=== PATIENT | female | born 2000 | race African-American/Black ===

== ENCOUNTER 2018-01-11 10:15 | Emergency (ER) | payer MEDICAID, SELFPAY ==
[2018-01-11 10:15] VITALS: BP 161/100; PULSE 108; RESP 20; TEMP 36.2; O2SAT 97; BMI 56.6
--- NOTE | 2018-01-11 10:38 | RAD_ITS ---
STUDY: X-RAY - RIGHT FOOT CLINICAL: Female, 17 years old. Midfoot pain following injury. TECHNIQUE: 3 view(s) of the foot. COMPARISON: None. FINDINGS: Findings suggestive of a nondisplaced fracture along the superior posterior aspect of the first cuneiform. Normal visualized subtalar, talonavicular, calcaneocuboid, tarsal and tarsometatarsal articulations. Normal metatarsi. Normal metatarsophalangeal joint of the great toe. Normal tibial and fibular sesamoid bones. Normal interphalangeal joint of the great toe. Normal phalanges of the great toe. Normal second through fifth metatarsophalangeal joints. Normal interphalangeal joints and phalanges of the lesser toes. Soft tissue swelling. RAD/Foot min 3 Views IMPRESSION: Soft tissue swelling. Questionable fracture along the superior posterior aspect of the first cuneiform. Electronically Signed: Gopal Roque MD at 10:54 EDT Tel [phone], Service support ,
--- NOTE | 2018-01-11 11:12 | ED.DCSUM_ITS ---
- ER Visit Summary Date of Service: 01/11/18 Chief Complaint: [Injury right foot] History of Present Illness: The patient is a 17 F [presents the emergency department complaint of pain in her right foot since yesterday morning. Patient states that she was upset and kicked the wall. Patient having pain with ambulation.] Physical Examination: [Right foot-patient has diffuse tenderness over the dorsal midfoot. There is mild soft tissue swelling. No obvious deformity. No significant ecchymosis or bruising noted. She is neurovascular intact distally. She has no pain about the ankle.] Test Results: [X-rays of the right foot obtained were read by radiologist soft tissue swelling and possible fracture of the first cuneiform along the superior posterior aspect.] Emergency Department Course and Treatment: [Given that patient has tenderness along the area of possible fracture on x-ray patient will be placed in a postop shoe and given crutches. ] Treatment Plan: [Patient will be referred to podiatry and given a prescription for [place] for pain] Disposition: [Discharged home in stable condition] Impression: [Right foot fracture] This note was generated with [employer] dictation software. It may contain incorrect words, spelling, and punctuation that were not noted in review of the chart prior to signing ED Disposition - Plan for ED Patient: Chief Complaint: Lower Extremity Injury Referrals: Ramone Joseph MD [Primary Care Provider] -
--- NOTE | 2018-01-11 11:12 | ED.DEP ---
ED Disposition - Plan for ED Patient: Chief Complaint: Lower Extremity Injury Instructions: ED Fx Foot Prescriptions: Hydrocodone Bitart/Apap 5-325 [[place] 5MG-325MG] 1 tab PO Q4H PRN PRN 2 Days #10 tab PRN Reason: Pain Referrals: Ramone Joseph MD [Primary Care Provider] - Ramone Fonseca DPM [STAFF PHYSICIAN] - 3-5 Days
[2018-01-11 11:27] VITALS: BP 148/77; PULSE 75; RESP 16; O2SAT 99
== END 2018-01-11 11:28 | disposition home or self-care (01) ==
LOC: ED 10:43
PROVIDERS: Emergency Provider Emergency Medicine; Family Provider Family Medicine; PCP Family Medicine
DX: S92.811A Other fracture of right foot, initial encounter for closed fracture (principal); W22.8XXA Striking against or struck by other objects, initial encounter; Y93.89 Activity, other specified; Y92.9 Unspecified place or not applicable
CPT/HCPCS: 73630; 99283

== ENCOUNTER 2018-11-02 18:46 | Emergency (ER) | payer MEDICAID, SELFPAY ==
[2018-11-02 18:47] VITALS: BP 153/101; PULSE 115; RESP 16; TEMP 35.9; O2SAT 99; BMI 58.4
--- NOTE | 2018-11-02 19:17 | RAD_ITS ---
STUDY: X-RAY - LEFT ANKLE REASON FOR EXAM: Female, 18 years old. Fall down stairs TECHNIQUE: 3 view(s) of the ankle. COMPARISON: None. FINDINGS: Normal visualized distal tibia and fibula. Normal medial and lateral malleoli. Normal tibiotalar articulation and ankle mortise. Normal visualized talus and calcaneus. The visualized subtalar, talonavicular, calcaneocuboid and tarsal articulations are normal. There is no demonstrated fracture. The soft tissue structures are unremarkable. RAD/Ankle min 3 Views IMPRESSION: Normal x-ray examination of the ankle. Electronically Signed: Naman Guo MD at 20:03 EDT , Service support ,
--- NOTE | 2018-11-02 19:17 | RAD_ITS ---
STUDY: X-RAY - THORACIC SPINE REASON FOR EXAM: Female, 18 years old. Fall down stairs TECHNIQUE: 3 view(s) of the thoracic spine were obtained. COMPARISON: None. FINDINGS: Normal kyphosis of the thoracic spine. There is no substantial scoliosis. Normal thoracic vertebrae and endplates. Normal disc space heights. The soft tissue structures are unremarkable. RAD/Thoracic Spine 2 Views IMPRESSION: Normal x-ray examination of the thoracic spine. Electronically Signed: Naman Guo MD at 20:04 EDT , Service support ,
--- NOTE | 2018-11-02 19:17 | RAD_ITS ---
STUDY: X-RAY - LUMBAR SPINE REASON FOR EXAM: Female, 18 years old. Fall down stairs TECHNIQUE: 3 view(s) of the lumbar spine were obtained. COMPARISON: None FINDINGS: Normal lumbar lordosis. There is no substantial scoliosis. There is a normal alignment of the vertebrae. Normal vertebral bodies and endplates. Normal disc space heights. There is no demonstrated fracture. The soft tissue structures are unremarkable. RAD/Lumbar Spine 2 or 3 Views IMPRESSION: Normal x-ray examination of the lumbar spine. Electronically Signed: Naman Guo MD at 20:04 EDT , Service support ,
--- NOTE | 2018-11-02 20:29 | ED.DCSUM_ITS ---
- ER Visit Summary Date of Service: 11/02/18 Chief Complaint: [Fall] History of Present Illness: The patient is a 18 F [presents to the emergency department after sustaining a fall earlier today while walking down her outdoor steps. Patient states she was carrying a box when she slipped on the wet steps and landed on her back. Patient struck her left ankle against a step also. She denies striking her head or loss of consciousness. She denies any neck pain. She denies chest pain. She denies shortness of breath. She denies abdominal pain. Patient has been ambulatory and drove herself to the ER.] Physical Examination: [HEENT-PERRLA, EOMI. Cranial nerves II through XII najma ssly intact. TMs clear. Mucous membranes moist. No adenopathy. No C-spine tenderness to palpation. Normal active range of motion is painless. Cardiovascular-regular rate and rhythm without murmur or ectopy Lungs-clear to auscultation, chest wall stable without crepitus or subcu emphysema Abdomen-normoactive bowel sounds, soft, nontender, no rebound or rigidity, no peritoneal signs. Back exam-patient has diffuse tenderness over the upper thoracic spine. Patient also with tenderness over the lower lumbar spine. Is no ecchymosis or bruising noted no bony step-offs. Negative straight leg raises. Deep tendon reflexes are plus 2 out of 4 bilaterally at the patella and Achilles. Patient has normal 5 extension bilaterally. Extremities-intact ?4, normal range of motion, normal pulses, atraumatic] Test Results: [X-rays of the left ankle as well as the thoracic and lumbar spine performed were normal.] Emergency Department Course and Treatment: [Patient received an Trey wrap her ankle. She refused crutches.] Treatment Plan: [Patient advised use ibuprofen for discomfort and follow-up with primary care physician in 5 to 7 days.] Disposition: [Discharged home in stable condition] Impression: [Mechanical fall Left ankle sprain/contusion Contusion back] This note was generated with [employer] dictation software. It may contain incorrect words, spelling, and punctuation that were not noted in review of the chart prior to signing ED Disposition - Plan for ED Patient: Referrals: Ramone Joseph MD [Primary Care Provider] -
--- NOTE | 2018-11-02 20:29 | ED.DEP ---
ED Disposition - Plan for ED Patient: Instructions: ED Mechanical Fall, ED Contusion Back, Treating Ankle Sprains Referrals: Ramone Joseph MD [Primary Care Provider] - 5-7 Days
[2018-11-02 20:30] VITALS: BP 146/92; PULSE 88; RESP 16; O2SAT 98
== END 2018-11-02 20:34 | disposition home or self-care (01) ==
LOC: ED 19:34
PROVIDERS: Emergency Provider Emergency Medicine; Family Provider Family Medicine; PCP Family Medicine
DX: S93.402A Sprain of unspecified ligament of left ankle, initial encounter (principal); S90.02XA Contusion of left ankle, initial encounter; W10.8XXA Fall (on) (from) other stairs and steps, initial encounter; Y93.89 Activity, other specified; Y92.008 Other place in unspecified non-institutional (private) residence as the place of occurrence of the external cause; M54.6 Pain in thoracic spine; M54.5 Low back pain
CPT/HCPCS: 72070; 72100; 73610; 99282

== ENCOUNTER 2018-12-12 17:23 | Emergency (ER) | payer BC, SELFPAY ==
[2018-12-12 17:24] VITALS: BP 155/88; PULSE 108; RESP 16; TEMP 36.6; O2SAT 98; BMI 58.1
--- NOTE | 2018-12-12 17:38 | ED.DCSUM_ITS ---
History of Present Illness Chief Complaint: Itching Detail of Chief Complaint: Hives Informant: Patient Onset: Days - 3 days ago Context: Sudden Onset Timing: Continuous Quality: Itchy rash Location: Generalized Current Severity: Mild Maximum Severity: Mild Worsened by: Patient believes sunscreen Relieved by: nothing Associated Symptoms: Swelling of eyelids and itching of eyelids Narrative: Vision is a 18-year-old who presents with rash that she believes her hives. She states she has itching. She believes this is secondary to sunscreen. She denies respiratory cardiac since. She denies orthostatic symptoms. She denies swelling of the lips, tongue or throat. She has no other complaints. Prior similar symptoms: No Recent Illness/Hospitalization: No - Past Medical History (1) No significant past medical history Status: Acute Past Medical History - Allergies and Home Meds Allergies/Adverse Reactions: Allergies amoxicillin [From Augmentin] Adverse Reaction (Verified 12/12/18 17:25) Nausea clavulanic acid [From Augmentin] Adverse Reaction (Verified 12/12/18 17:25) Nausea Primary Care Physician: Ramone Joseph MD [Primary Care Provider] - Prior records reviewed: Yes Surgical History: no surgical history Lives: Spouse/ Significant Other Smoking Status: Never smoker Alcohol: None Review of Systems General: Denies: Chills, Fever, Sweats, Weight loss ENT: Denies: Rhinorrhea, Sore throat Cardiovascular: Denies: Chest pain, Palpitations Respiratory: Denies: Dyspnea, Cough, Dyspnea on exertion Gastrointestinal: Denies: Nausea, Vomiting, Diarrhea Musculoskeletal: Denies: Myalgias, Arthralgias, Neck pain, Back pain, Swelling, Extremity Pain Skin: Reports: Rash. Denies: Wounds Neurological: Denies: Headache, Weakness, Parasthesia, Numbness Allergy: Reports: Uticaria. Denies: Swelling of the mouth, Swelling of the tongue Physical Exam Vital Signs/Narrative: Vital Signs Temp Pulse Resp BP Pulse Ox 12/12/18 17:24 98 F 108 H 16 155/88 H 98 Inital Vital Signs reviewed: Yes General: Well nourished, Well developed, Obese, No Acute Distress Head: Normocephalic, Atraumatic Eyes: Perrl, EOMI. Negative for: Pale conjunctiva - Dr. are not injected., Scleral icterus, - ENT: Moist mucous membranes, No rhinorrhea, TM's clear Neck: Supple, Nontender, No lymphadenopathy, No JVD, - Cardiovascular: Regular rate, Regular rhythm, No murmurs Respiratory: No distress, CTA bilaterally, Chest nontender Extremities: Nontender, No edema Skin: Normal color, Rash - Patient has a papular rash. Findings are consistent with folliculitis.. Negative for: No rash, Cyanosis, Diaphoresis, Jaundice Neurological: Alert, Oriented x3, Cranial nerves II-XII grossly intact, Normal Strength, Normal Sensation Psychological: Normal affect, Normal Mood Diagnostic/Tx/Re-eval - Medical Decision Making She presents with rash that she believes is a urticaria. Examination the rash reveals folliculitis. Of note she is not well-groomed. There is no evidence of hives. There is no cardiovascular instability. There is no respiratory instability. Since this is generalized will discharge with appropriate home- going instructions for folliculitis and placed on antibiotics. She states she has not had a menstrual cycle in 3 years. ED Disposition - Plan for ED Patient: Disposition: Home or Assisted Living Diagnosis: Acute folliculitis Instructions: ED Folliculitis Prescriptions: Doxycycline 100 mg PO BID #10 cap Referrals: Ramone Joseph MD [Primary Care Provider] - 1 Week if not improving Additional Instructions: Your prescription was electronically transmitted to designated pharmacy of choice.
[2018-12-12 17:43] VITALS: RESP 18
[2018-12-12] MEDS: Doxycycline 100 MG CAPSULE PO (17:52)
== END 2018-12-12 17:54 | disposition home or self-care (01) ==
PROVIDERS: Emergency Provider Emergency Medicine; Family Provider Family Medicine; PCP Family Medicine
DX: L73.9 Follicular disorder, unspecified (principal)
CPT/HCPCS: 99283

== ENCOUNTER 2018-12-30 04:25 | Emergency (ER) | payer BC, SELFPAY ==
[2018-12-30 04:27] VITALS: BP 139/78; PULSE 95; RESP 18; TEMP 36.9; O2SAT 99; BMI 60.0
--- NOTE | 2018-12-30 04:38 | ED.DEP ---
ED Disposition - Plan for ED Patient: Instructions: ED Otitis Media Acute Adult Prescriptions: Azithromycin [Zithromax Z-Toro] 250 mg PO UD #1 box Naproxen [Naprosyn] 500 mg PO BID PRN #20 tablet Referrals: Ramone Joseph MD [Primary Care Provider] -
--- NOTE | 2018-12-30 04:43 | ED.DCSUM_ITS ---
- ER Visit Summary Date of Service: 12/30/18 Chief Complaint: Right ear pain, sore throat History of Present Illness: The patient is a 18 F presenting with right ear pain, sore throat. She states earlier today she started having a sore throat. She had painful swallowing but no difficulty swallowing. She denies fever. She states she later woke up with pain in her right ear. She tried no medications at home. No recent swimming or trauma. Denies other complaints. Physical Examination: Vitals are stable. Patient is afebrile. Alert no acute distress. HEENT exam right TM erythema and bulging. Pharynx is normal. Uvula midline. Neck is supple. No meningismus Lungs are clear and equal bilaterally. Heart is regular rate and rhythm. Extremities are unremarkable. Skin is warm and dry. No rash Remainder of exam is unremarkable. Emergency Department Course and Treatment: Patient was given Motrin, Zithromax due to Augmentin allergy. She is advised to follow-up with her primary care physician. Advised return to ED for worsening complaints. Disposition: Discharge home Impression: Right otitis media This note was generated with [employer] dictation software. It may contain incorrect words, spelling, and punctuation that were not noted in review of the chart prior to signing ED Disposition - Plan for ED Patient: Instructions: ED Otitis Media Acute Adult Prescriptions: Azithromycin [Zithromax Z-Toro] 250 mg PO UD #1 box Naproxen [Naprosyn] 500 mg PO BID PRN #20 tablet Referrals: Ramone Joseph MD [Primary Care Provider] -
[2018-12-30] MEDS: Ibuprofen 600 MG Tablet PO (04:51)
[2018-12-30] MEDS: Azithromycin 250 MG Tablet 500 MG PO (04:52)
[2018-12-30 04:54] VITALS: RESP 18
== END 2018-12-30 04:54 | disposition home or self-care (01) ==
LOC: ED 04:50
PROVIDERS: Emergency Provider Emergency Medicine; Family Provider Family Medicine; PCP Family Medicine
DX: H66.91 Otitis media, unspecified, right ear (principal)
CPT/HCPCS: 99283

== ENCOUNTER 2019-02-12 22:04 | Emergency (ER) | payer BC, SELFPAY ==
[2019-02-12 22:05] VITALS: BP 145/81; PULSE 88; RESP 14; TEMP 36.6; O2SAT 96; BMI 58.8
[2019-02-12 23:07] LABS: Red Blood Cells-Urine 0 SEEN /hpf (0-5)
[2019-02-12 23:13] LABS: Internal QC Validated? YES +Cl - CLEAR BKGD; Pregnancy, Urine Negative Negative
[2019-02-12 23:14] LABS: Color, Urine Yellow (Yellow); Glucose, Dipstick Normal (Normal); Ketone-Dipstick 5 mg/dl (Negative); Leukocyte Esterase-Dipstick 25 /ul (Negative); Nitrite-Dipstick Negative (Negative); Occult Blood-Urine Negative /ul (Negative); Protein-Dipstick 15 mg/dl (Negative); Urine Bilirubin Dipstick Negative (Negative); Urine Clarity Cloudy (Clear); Urine Urobilinogen 4 mg/dl (Normal)
[2019-02-12 23:19] LABS: Mucous, Urine 3+ /hpf (<or=2+)
[2019-02-12 23:20] LABS: Hyaline Cast 0-5 SEEN /lpf (0-5)
[2019-02-12 23:22] LABS: Bacteria 2+ /hpf (None Seen); Squamous Epithelial Cells - UA 5-10 SEEN /hpf (5-10)
[2019-02-12 23:23] LABS: White Blood Cells 0-5 SEEN /hpf (0-5)
--- NOTE | 2019-02-12 23:28 | ED.DCSUM_ITS ---
- ER Visit Summary Date of Service: 02/12/19 Chief Complaint: Multiple complaints History of Present Illness: The patient is a 18 F who presents with multiple complaints. She complains of pain along both sides of her neck. This is worse with turning her head to the side or certain movements. It is also causing headache. She reports sweats but no fevers. She also complains of lower back pain again worse with movement or palpation which she describes as pressure- like. She also complains of lower abdominal/pelvic pain. No dysuria frequency urgency. Physical Examination: Afebrile vitals unremarkable Moist mucous membranes Neck supple, no nuchal rigidity, negative Kernig's and presents this Patient has paraspinal lumbar and cervical tenderness no midline tenderness Abdomen is soft nontender nondistended Heart regular rate and rhythm Lungs are clear Test Results: Urinalysis unremarkable. negative. Emergency Department Course and Treatment: Patient's back and neck pain appear to be musculoskeletal nature. She does have a BMI of 59. I have no concern for serious process such as meningitis. She was advised on supportive care. In regards to her pelvic pain urinalysis and are unremarkable. She was advised to follow-up as an outpatient. She was advised that if symptoms continue she may need further outpatient work-up such as pelvic ultrasound. She does understand return for new or worsening symptoms. All questions answered bedside and discussed with the mother as well. Patient discharged. Treatment Plan: [] Disposition: [] Impression: Neck pain Lower back pain Pelvic pain This note was generated with [employer] dictation software. It may contain incorrect words, spelling, and punctuation that were not noted in review of the chart prior to signing ED Disposition - Plan for ED Patient: Referrals: Ramone Joseph MD [Primary Care Provider] -
--- NOTE | 2019-02-12 23:30 | ED.DEP ---
ED Disposition - Plan for ED Patient: Instructions: Neck Sprain/Strain, Back Sprain/Strain, PELVIC PAIN, Unknown Cause Prescriptions: Naproxen [Naprosyn] 500 mg PO BID #20 tab Prescription Printed Referrals: Ramone Joseph MD [Primary Care Provider] -
== END 2019-02-12 23:39 | disposition home or self-care (01) ==
PROVIDERS: Emergency Provider Emergency Medicine; Family Provider Family Medicine; PCP Family Medicine
DX: M54.2 Cervicalgia (principal); M54.5 Low back pain; R10.2 Pelvic and perineal pain
CPT/HCPCS: 81001; 81025; 99282

== ENCOUNTER 2019-04-16 15:20 | Emergency (ER) | payer BC, SELFPAY ==
[2019-04-16 15:21] VITALS: BP 138/93; PULSE 98; RESP 16; TEMP 36.8; O2SAT 98; BMI 56.5
--- NOTE | 2019-04-16 15:41 | ED.VIS.GEN ---
History of Present Illness Chief Complaint: Abscess Detail of Chief Complaint: Pilonidal cyst Informant: Patient Onset: Days Current Severity: Mild Maximum Severity: Moderate Narrative: Patient presents with complaint of pilonidal cyst. She states she started noting pain there 3 days ago. She states her mom looked at the area this morning and it spontaneously started to drain. She is not sure if they got everything out. She has not had fever or chills. She has had one prior pilonidal cyst. Past Medical History - Allergies and Home Meds Allergies/Adverse Reactions: Allergies amoxicillin [From Augmentin] Adverse Reaction (Verified 04/16/19 15:23) Nausea clavulanic acid [From Augmentin] Adverse Reaction (Verified 04/16/19 15:23) Nausea Primary Care Physician: Ramone Joseph MD [Primary Care Provider] - Prior records reviewed: Yes Past Medical History: - - Reviewed Surgical History: no surgical history Smoking Status: Never smoker Review of Systems General: Denies: Chills, Fever Eyes: Denies: Visual changes - bilaterally ENT: Denies: Bilateral ear pain Cardiovascular: Denies: Chest pain Respiratory: Denies: Dyspnea, Cough Gastrointestinal: Reports: - - Pain along buttock crease. Denies: Abdominal pain, Nausea, Vomiting Genitourinary: Denies: Dysuria Skin: Reports: Wounds. Denies: Rash Neurological: Denies: Headache Endocrine: Denies: Polyuria, Polydipsia Allergy: Denies: Uticaria Physical Exam Vital Signs/Narrative: Vital Signs Temp Pulse Resp BP Pulse Ox 04/16/19 15:21 98.2 F 98 16 138/93 H 98 Inital Vital Signs reviewed: Yes General: Well nourished Head: Normocephalic ENT: Moist mucous membranes Cardiovascular: Regular rate, Regular rhythm Respiratory: No distress, CTA bilaterally Abdomen: Soft, Nontender Rectal: - - Patient has evidence of a small pilonidal cyst on the gluteal cleft draining serosanguineous fluid. I do not feel fluctuance. There is no cellulitis. Extremities: Nontender Skin: - - As above Neurological: Alert, Oriented x3 Psychological: Normal affect Diagnostic/Tx/Re-eval - Medical Decision Making Bedside ultrasound was performed and does not reveal a fluid collection. She will be treated with Bactrim and Keflex. She will be referred to Dr. Pemberton who she saw in the past. ED Disposition - Plan for ED Patient: Disposition: Home or Assisted Living Diagnosis: Pilonidal cyst Instructions: PILONIDAL CYST, Not Infected Prescriptions: Smz/Tmp Ds [Bactrim Ds] 1 tablet PO BID #14 tablet Cephalexin [Keflex] 500 mg PO Q6 #40 capsule Referrals: Ramone Joseph MD [Primary Care Provider] - Ashley Pemberton MD [STAFF PHYSICIAN] - 1-2 Weeks
== END 2019-04-16 16:02 | disposition home or self-care (01) ==
LOC: ED 15:48
PROVIDERS: Emergency Provider Emergency Medicine; Family Provider Family Medicine; PCP Family Medicine
DX: L05.91 Pilonidal cyst without abscess (principal)
CPT/HCPCS: 99282

== ENCOUNTER 2019-10-21 21:55 | Emergency (ER) | payer SELFPAY ==
[2019-10-21 21:56] VITALS: BP 139/92; PULSE 92; RESP 18; TEMP 37.2; O2SAT 98; BMI 49.7
--- NOTE | 2019-10-21 22:29 | ED.VIS.GI ---
History of Present Illness Chief Complaint: Abd Pain Narrative: Patient presenting for evaluation secondary to abdominal pain nausea and vomiting. Patient reports that just prior to arrival she had a sudden onset of crampy upper abdominal pain. She reports that initially it was rather severe and it was associated with around 3 episodes of nonbloody nonbilious emesis. Patient denies that she had any diarrhea associated with this. Patient states that since throwing up she has had improvement of her abdominal pain and it is now down to a 3 out of 10. Patient denies any sick contacts. She denies any fever or respiratory symptoms. She denies any recent travel. She denies any history of abdominal surgeries. Review of systems otherwise negative. Past Medical History - Allergies and Home Meds Allergies/Adverse Reactions: Allergies amoxicillin [From Augmentin] Adverse Reaction (Verified 10/21/19 22:02) Nausea clavulanic acid [From Augmentin] Adverse Reaction (Verified 10/21/19 22:02) Nausea Primary Care Physician: Ramone Joseph MD [Primary Care Provider] - Past Medical History: None Surgical History: no surgical history Smoking Status: Former smoker Review of Systems General: Denies: Chills, Fever, Sweats Eyes: Denies: Visual changes - bilaterally, Diplopia ENT: Denies: Rhinorrhea, Sore throat Cardiovascular: Denies: Chest pain, Palpitations Respiratory: Denies: Dyspnea, Cough, Dyspnea on exertion Gastrointestinal: Reports: Abdominal pain, Nausea, Vomiting Genitourinary: Denies: Dysuria, Hematuria, Frequency Musculoskeletal: Denies: Back pain, Extremity Pain Skin: Denies: Rash, Wounds Neurological: Denies: Headache, Weakness, Numbness Physical Exam Vital Signs/Narrative: Vital Signs Temp Pulse Resp BP Pulse Ox 10/21/19 21:56 98.9 F 92 18 139/92 H 98 Inital Vital Signs reviewed: Yes General: Well nourished, Well developed, No Acute Distress Head: Normocephalic, Atraumatic Eyes: Perrl, EOMI ENT: Moist mucous membranes, No rhinorrhea Neck: Supple, Nontender Cardiovascular: Regular rate, Regular rhythm, No murmurs Respiratory: No distress, CTA bilaterally, Chest nontender Abdomen: Soft, Nondistended, Normal bowel sounds, Tender - Very minimal epigastric tenderness with no guarding or rebound Back: Nontender, Normal Inspection Extremities: Nontender, No edema Skin: Normal color, No rash Neurological: Alert, Oriented x3, Cranial nerves II-XII grossly intact, Normal Strength, Normal Sensation Psychological: Normal affect, Normal Mood Diagnostic/Tx/Re-eval - Medical Decision Making Patient presented secondary to vomiting and epigastric pain. Abdominal exam is benign. I did consider the possibility of ulcer versus pancreatitis versus gallbladder disease, but the patient has a benign abdomen and stable vitals I do not feel that imaging or lab work are indicated. Patient likely has gastritis. Patient will be given a GI cocktail and Zofran. She will be discharged with a course of Zofran. ED Disposition - Plan for ED Patient: Disposition: Home or Assisted Living Diagnosis: Gastritis Instructions: ED Gastritis Prescriptions: Ondansetron [Zofran Odt] 4 mg PO Q8H PRN PRN #10 tab PRN Reason: Nausea Transmission Status: Pending to [facility]/pharmacy #[id number] Referrals: Ramone Joseph MD [Primary Care Provider] - As Needed
[2019-10-21] MEDS: Ondansetron ODT 4 MG Tablet PO (22:33)
[2019-10-21] MEDS: Mag Hydrox/Al Hydrox/Simeth 30 ML UDC PO (22:33)
[2019-10-21 22:34] VITALS: BP 143/71; PULSE 87; RESP 17; O2SAT 99
== END 2019-10-21 22:57 | disposition home or self-care (01) ==
PROVIDERS: Emergency Provider Emergency Medicine; PCP Family Medicine
DX: K29.70 Gastritis, unspecified, without bleeding (principal); Z87.891 Personal history of nicotine dependence
CPT/HCPCS: 99285

== ENCOUNTER 2019-12-22 13:59 | Emergency (ER) | payer BC, MEDICAID, SELFPAY ==
[2019-12-22 14:00] VITALS: BP 131/87; PULSE 83; RESP 16; TEMP 36; O2SAT 99; BMI 37.2
--- NOTE | 2019-12-22 14:09 | ED.VIS.GEN ---
History of Present Illness Chief Complaint: Rash Informant: Patient Onset: Yesterday Context: Gradual Onset Timing: Continuous Quality: burning pain Location: nose Current Severity: Moderate Maximum Severity: Moderate Worsened by: palpation Relieved by: nothing Associated Symptoms: denies Narrative: 19-year-old female who denies any significant past medical history presents to the emergency department with a painful rash on her nose that she noticed yesterday. No drainage. No rash anywhere else. No lesions inside of her nose. She denies history of similar. Denies known exposures. Denies any new soaps lotions medications or detergents. Denies constitutional symptoms. Prior similar symptoms: No Recent Illness/Hospitalization: No Past Medical History - Allergies and Home Meds Allergies/Adverse Reactions: Allergies amoxicillin [From Augmentin] Adverse Reaction (Verified 12/22/19 14:00) Nausea clavulanic acid [From Augmentin] Adverse Reaction (Verified 12/22/19 14:00) Nausea Primary Care Physician: Ramone Joseph MD [Primary Care Provider] - Prior records reviewed: Yes Past Medical History: None Surgical History: no surgical history Lives: With Family Smoking Status: Former smoker Alcohol: Occasional Drugs: None Review of Systems General: Denies: Chills, Fever, Malaise, Subjective, Sweats Eyes: Denies: Visual changes - bilaterally, Diplopia ENT: Denies: Rhinorrhea, Sore throat Cardiovascular: Denies: Chest pain, Palpitations Respiratory: Denies: Dyspnea, Cough, Dyspnea on exertion Gastrointestinal: Denies: Abdominal pain, Nausea, Vomiting, Diarrhea, Melena, Hematochezia Genitourinary: Denies: Dysuria, Hematuria, Frequency Musculoskeletal: Denies: Back pain, Extremity Pain Skin: Reports: Rash. Denies: Abscess, Abrasions, Wounds Neurological: Denies: Headache, Weakness, Numbness Physical Exam Vital Signs/Narrative: Vital Signs Temp Pulse Resp BP Pulse Ox 12/22/19 14:00 96.8 F L 83 16 131/87 H 99 Inital Vital Signs reviewed: Yes General: Well nourished, Well developed, Obese, No Acute Distress Head: Normocephalic, Atraumatic Eyes: Perrl, EOMI ENT: Moist mucous membranes, No rhinorrhea Neck: Supple, Nontender Cardiovascular: Regular rate, Regular rhythm, No murmurs Respiratory: No distress, CTA bilaterally, Chest nontender Abdomen: Soft, Nontender, Nondistended, Normal bowel sounds Back: Nontender, Normal Inspection Extremities: Nontender, No edema Skin: Normal color, No Trauma, Rash - Patient has what appear to be a crusting lesion on the bridge of her nose on the right side just above the nostril. small vesicle surrounding this. No abscess. No petechia no purpura or pustules. No other lesions noted on the face within the nose on the upper lip or within the mouth. Neurological: Alert, Oriented x3, Cranial nerves II-XII grossly intact, Normal Strength, Normal Sensation, Normal Gait Psychological: Normal affect, Normal Mood Diagnostic/Tx/Re-eval - Medical Decision Making A herpes culture was sent as well as a wound culture. Will treat with oral Keflex, Famvir and topical Bactroban and have her follow-up with her primary care physician ED Disposition - Plan for ED Patient: Disposition: Home or Assisted Living Diagnosis: Rash of face Instructions: ED Herpes Simplex Virus Type 2 Prescriptions: Mupirocin [Bactroban] 1 applic TOPICAL TID #1 tube Prescription Printed Famciclovir [Famvir] 250 mg PO TID #30 tab Prescription Printed Cephalexin [Keflex] 500 mg PO Q12 #14 cap Prescription Printed Referrals: Ramone Joseph MD [Primary Care Provider] -
--- NOTE | 2019-12-22 14:25 | ED.VISSUMM ---
- ER Visit Summary Date of Service: 12/22/19 Chief Complaint: [Rash] History of Present Illness: The patient is a 19 F [presents to the emergency department complaint of a rash to the right side of her nose that she noted about a week ago. Patient felt like maybe it was just some crusty discharge and pulled it off and since that time she has had a vesicular uncomfortable rash. She has no history of cold sores or herpes. She also started having a sore throat 2 days ago. She denies any fevers. Patient seen in conjunction with nurse practitioner Ulysses Loera.] Physical Examination: [HEENT-PERRLA, EOMI. Cranial nerves II through XII grossly intact. TMs clear. Mucous membranes moist. No adenopathy. Nose-just superior to the nasal opening on the right side there is a vesicular rash with central scab noted. No cellulitic changes noted. Pharynx-no lesions noted. No exudates. Uvula midline. No trismus. No significant erythema noted. Cardiovascular-regular rate and rhythm without murmur or ectopy Lungs-clear to auscultation, chest wall stable without crepitus or subcu emphysema Abdomen-normoactive bowel sounds, soft, nontender, no rebound or rigidity, no peritoneal signs. Extremities-intact ?4, normal range of motion, normal pulses, atraumatic] Test Results: [Herpes culture was sent. Also a wound culture sent.] Emergency Department Course and Treatment: [Patient will be treated with antiviral Famvir as well as mupirocin cream and Keflex.] Treatment Plan: [Patient treated with antiviral as well as Keflex and mupirocin cream. Patient will be referred to primary care physician for follow-up in 3 to 5 days.] Disposition: [Discharged home in stable condition] Impression: [Dermatitis Pharyngitis] This note was generated with tok tok tok dictation software. It may contain incorrect words, spelling, and punctuation that were not noted in review of the chart prior to signing ED Disposition - Plan for ED Patient: Referrals: Ramone Joseph MD [Primary Care Provider] -
[2019-12-22 15:00] VITALS: PULSE 86; RESP 17; O2SAT 98
== END 2019-12-22 15:02 | disposition home or self-care (01) ==
LOC: ED 14:51
PROVIDERS: Emergency Provider Physician Assistant Medical; PCP Family Medicine
DX: L30.9 Dermatitis, unspecified (principal); J02.9 Acute pharyngitis, unspecified; E66.9 Obesity, unspecified; Z87.891 Personal history of nicotine dependence
CPT/HCPCS: 87070; 87077; 87186; 87205; 87255; 99283

== ENCOUNTER → 2020-06-02 12:53 | Outpatient (CLI) | payer BC, MEDICAID, SELFPAY ==
[2020-06-02 13:44] LABS: hCG Titer Quant., Serum 35240 mIU/mL (1-3)
== END ==
PROVIDERS: PCP Family Medicine; Referring Provider Obstetrics & Gynecology; Visit Provider Obstetrics & Gynecology
DX: N91.2 Amenorrhea, unspecified (principal)
CPT/HCPCS: 36415; 84702

== ENCOUNTER → 2020-06-29 | Outpatient (CLI) | payer BC, MEDICAID, SELFPAY ==
[2020-06-29 10:44] VITALS: BMI 48.4
[2020-07-02 10:12] LABS: HPV Reflexed? NOT INDICATED
[2020-07-02 20:07] LABS: Chlamydia By Nucleic Acid AMP Negative (Negative)
[2020-07-02 22:44] LABS: Gonococcus By Nucleic Acid AMP Negative (Negative)
== END | disposition home or self-care (01) ==
LOC: LABSPEC 16:38
PROVIDERS: PCP Family Medicine; Visit Provider Obstetrics & Gynecology
DX: Z12.4 Encounter for screening for malignant neoplasm of cervix (principal)
CPT/HCPCS: 87491; 87591; 88175; G0145

== ENCOUNTER → 2020-07-06 15:38 | Outpatient (CLI) | payer BC, MEDICAID, SELFPAY ==
[2020-06-29 10:44] VITALS: BMI 48.4
[2020-07-06 16:48] LABS: Absolute Lymphocyte Count 3.28 X10^3/uL (0.83-4.51); Absolute Neutrophil Count 6.7 X10^3/uL (2.0-7.7); Basophil# 0.04 X10^3/uL; Basophil% 0.4 % (0-1); Eosinophil# 0.24 X10^3/uL; Eosinophils% 2.2 % (0-5); Hematocrit 34.2 % (37-47); Hemoglobin 11.6 g/dL (12.0-15.0); Lymphocyte # 3.28 X10^3/ul (4.0); Lymphocyte % 29.8 % (19-41); Mean Corp Hgb Conc 33.9 g/dL (32-36); Mean Corpuscular Hgb 29.7 pg (27.0-32.0); Mean Corpuscular Volume 87.7 fL (81-99); Mean Platelet Vol. 9.8 fl (6.2-12.0); Monocyte# 0.67 X10^3/uL; Monocyte% 6.1 % (0-10); NRBC Flagged by Analyzer 0 % (0-5); Neutrophil # 6.71 X10^3/uL (2.7-7.7); Platelet Count 277 K/mm3 (150-450); RBC Distribution Width CV 14.6 % (11.6-14.6); RBC Distribution Width SD 45.4 fl (35.1-43.9)
[2020-07-06 16:54] LABS: NATERA MAILED SPECIMEN
[2020-07-06 17:09] LABS: Glucose Challenge Gest 1H 50g 78 mg/dL (70-140)
[2020-07-06 18:20] LABS: Amphetamine Urine VISTA NEGATIVE (<1000 ng/mL); Barbiturate Urine VISTA NEGATIVE (< 200 ng/mL); Benzodiazepine Urine VISTA NEGATIVE (< 200 ng/mL); Cocaine Urine VISTA NEGATIVE (< 300 ng/mL); Ecstacy Urine VISTA NEGATIVE (< 500 ng/mL); Methadone Urine VISTA NEGATIVE (< 300 ng/mL); PCP Urine VISTA NEGATIVE (< 25 ng/mL); THC Urine VISTA POSITIVE (< 50 ng/mL); Vista UDS pH Range 5
[2020-07-06 23:15] LABS: Chlamydia Trachomatis by PCR Negative (Negative); Neisserai gonorrhoeae by PCR Negative (Negative); Probe Check PASS; Sample Adequacy Control PASS; Specimen Processing Control PASS
[2020-07-07 10:04] LABS: HIV - WCH Non-Reactive (Nonreactive); Hepatitis B Surface Antigen Non-Reactive (Nonreactive); Hepatitis C Antibody Non-Reactive (Nonreactive); Rubella IgG Reactive (Nonreactive)
[2020-07-09 02:22] LABS: Rapid Plasmin Reagin (RPR) NONREACTIVE (NONREACTIVE)
== END ==
PROVIDERS: Obstetrics & Gynecology; PCP Family Medicine; Visit Provider Obstetrics & Gynecology
DX: O99.210 Obesity complicating pregnancy, unspecified trimester (principal); E66.9 Obesity, unspecified; Z3A.00 Weeks of gestation of pregnancy not specified; Z31.430 Encounter of female for testing for genetic disease carrier status for procreative management
CPT/HCPCS: 36415; 80307; 82950; 85025; 86592; 86703; 86762; 86803; 86850; 86900; 86901; 87077; 87086; 87088; 87186; 87340; 87491; 87591

== ENCOUNTER 2020-07-11 12:03 | Emergency (ER) | payer BC, MEDICAID, SELFPAY ==
[2020-06-29 10:44] VITALS: BMI 48.4
[2020-07-11 12:05] VITALS: BP 149/87; PULSE 85; RESP 16; TEMP 36.1; O2SAT 99; BMI 43.3
[2020-07-11 12:07] VITALS: BP 149/87; PULSE 85; RESP 16; TEMP 36.1; O2SAT 99
--- NOTE | 2020-07-11 12:21 | EKG12_ITS ---
Test Reason : Blood Pressure : / mmHG Vent. Rate : 065 BPM Atrial Rate : 065 BPM P-R Int : 120 ms QRS Dur : 088 ms QT Int : 392 ms P-R-T Axes : 025 003 017 degrees QTc Int : 407 ms Normal sinus rhythm with sinus arrhythmia Minimal voltage criteria for LVH, may be normal variant Borderline ECG Confirmed by TAHIR ANAND, SIRISHA ([id number]), assistant film editor ALANA SEARS ([id number]) on 07/16/2020 10:12:25 AM Referred By: ANTHONY Confirmed By:ESTELA HARO MD
--- NOTE | 2020-07-11 12:21 | RAD_ITS ---
STUDY: X-RAY CHEST REASON FOR EXAM: Female, 19 years old. HEART RACING TECHNIQUE: Single AP portable view of the chest. COMPARISON: None. FINDINGS: The lungs are clear and expanded. There is no demonstrated pleural abnormality. Normal size heart. Normal mediastinum and saurav. Normal visualized pulmonary arteries. Normal visualized aortic arch and descending thoracic aorta. Normal visualized thoracic spine. Normal visualized ribs, clavicles, and shoulders. There is no demonstrated abnormality of the visualized soft tissue structures of the upper abdomen. RAD/Chest 1 View (Portable) IMPRESSION: Normal x-ray examination of the chest. Electronically Signed: Rohith Sommers DO at 13:31 EST Tel , Service support ,
--- NOTE | 2020-07-11 12:28 | ED.VIS.GEN ---
History of Present Illness Chief Complaint: Dizziness Informant: Patient Onset: Month(s) Maximum Severity: Mild Narrative: The patient is 19 years old she is healthy she is currently 12 weeks . She indicates has been having a sense of dizzy spells and presyncope for a longstanding throughout her and predates the . Indicates the spells simply are paroxysmal and strike her she can be doing nothing she feels a sense of spinning sensation feeling warm all over does not pass out does not have fever cough chest pain, the spell eventually resolves when she sits down she is often associated with a residual headache. She has a history of migraine headaches, she believes that the headaches actually started after the spells stop and does not believe the headaches trigger the spells. She has had an extensive evaluation for the migraine headaches including at age 14 and MRI that showed no brain tumor or aneurysm or structural abnormality She is currently on antibiotic for UTI but the symptoms predate the UTI she is having no abdominal pain or vaginal bleeding no numbness weakness paresthesias She was at work today had a spell as above she sat down her OB was contacted because of the frequent nature of the above she was sent to the emergency department Her symptoms are now resolved I cannot reproduce her dizzy sensation or sense of presyncope Past Medical History - Allergies and Home Meds Allergies/Adverse Reactions: Allergies amoxicillin [From Augmentin] Adverse Reaction (Verified 07/11/20 12:04) Nausea clavulanic acid [From Augmentin] Adverse Reaction (Verified 07/11/20 12:04) Nausea Primary Care Physician: Ramone Joseph MD [Primary Care Provider] - Past Medical History: - - Headache migraine history history of presyncope etiology unclear Surgical History: no surgical history Smoking Status: Never smoker Review of Systems General: Denies: Chills, Fever, Sweats Eyes: Denies: Visual changes - bilaterally, Diplopia ENT: Denies: Rhinorrhea, Sore throat Cardiovascular: Denies: Chest pain, Palpitations Respiratory: Denies: Dyspnea, Cough, Dyspnea on exertion Gastrointestinal: Denies: Abdominal pain, Nausea, Vomiting, Diarrhea, Melena, Hematochezia Genitourinary: Denies: Dysuria, Hematuria, Frequency Musculoskeletal: Denies: Back pain, Extremity Pain Skin: Denies: Rash, Wounds Neurological: Reports: Headache, - - Sense of dizziness resolved. Denies: Weakness, Numbness Physical Exam Vital Signs/Narrative: Vital Signs Temp Pulse Resp BP Pulse Ox 07/11/20 12:07 97 F L 85 16 149/87 H 99 07/11/20 12:05 97 F L 85 16 149/87 H 99 General: Well nourished, Well developed, No Acute Distress Head: Normocephalic, Atraumatic Eyes: Perrl, EOMI ENT: Moist mucous membranes, No rhinorrhea Neck: Supple, Nontender Cardiovascular: Regular rate, Regular rhythm, No murmurs Respiratory: No distress, CTA bilaterally, Chest nontender Abdomen: Soft, Nontender, Nondistended, Normal bowel sounds Back: Nontender, Normal Inspection Extremities: Nontender, No edema Skin: Normal color, No rash Neurological: Alert, Oriented x3, Cranial nerves II-XII grossly intact, Normal Strength, Normal Sensation Psychological: Normal affect, Normal Mood Diagnostic/Tx/Re-eval - Medical Decision Making Patient's vital signs are unremarkable, her neurologic exam cranial nerve motor or sensory gait all negative NIH 0 I cannot reproduce her dizziness again she says it is paroxysmal, she is been having it for quite some time, she has had a headache disorder for some time as well work-up was negative she has been evaluated for the dizzy spells one time she was told it might be related to serum blood sugar nothing was ever documented He is eating and drinking well she is execute all daily activities her is uncomplicated we discussed BAG INSPECTOR brain imaging with CAT scan discussed the risks involved the fact she had a negative MRI, she really does not wish to proceed with cT, at this time the CT of the head is deferred, subsequent MRI type imaging could be considered later to avoid radiation The patient's ED screening evaluation labs unremarkable all those reports EKG unremarkable showing sinus rhythm rate 65 no acute injury pattern, chest x-ray 1 view to my review shows nothing apparent normal cardiopulmonary structures radiology concurs We walked the patient around her room she had no symptoms of any kind we observed her for a protracted period of time again no symptoms spoke with Dr. Hoffman FIBROUS WALLBOARD INSPECTOR on-call agrees given that work-up she can be discharged home and follow-up in the office also explained to the patient explained she should also discuss the symptoms which actually predate her with her other outpatient providers to have them assist with her management and she will return for change in symptoms Home stable Final impression presyncopal episodes etiology unclear, 12 weeks uncomplicated by history and exam ED Disposition - Plan for ED Patient: Diagnosis: Pre-syncope Instructions: ED BPV Vertigo, ED Dizziness, Uncertain Cause, ED Near-Fainting, Uncertain Cause Referrals: Ramone Joseph MD [Primary Care Provider] - Additional Instructions: Rest follow-up with your outpatient providers and FIBROUS WALLBOARD INSPECTOR for further management return for change in symptoms
[2020-07-11 12:48] LABS: Absolute Lymphocyte Count 2.94 X10^3/uL (0.83-4.51); Absolute Neutrophil Count 6.9 X10^3/uL (2.0-7.7); Basophil# 0.02 X10^3/uL; Basophil% 0.2 % (0-1); Eosinophil# 0.34 X10^3/uL; Eosinophils% 3.1 % (0-5); Hematocrit 36.8 % (37-47); Hemoglobin 11.9 g/dL (12.0-15.0); Lymphocyte # 2.94 X10^3/ul (4.0); Mean Corp Hgb Conc 32.3 g/dL (32-36); Mean Corpuscular Volume 86.6 fL (81-99); Mean Platelet Vol. 9.6 fl (6.2-12.0); Monocyte# 0.61 X10^3/uL; Monocyte% 5.6 % (0-10); NRBC Flagged by Analyzer 0 % (0-5); Neutrophil # 6.94 X10^3/uL (2.7-7.7); Neutrophil % 63.6 % (47-70); Platelet Count 313 K/mm3 (150-450); RBC Distribution Width CV 14.4 % (11.6-14.6); RBC Distribution Width SD 45.4 fl (35.1-43.9); Red Blood Count 4.25 M/mm3 (4.2-5.4); White Blood Count 10.9 K/mm3 (4.4-11.0)
[2020-07-11 12:50] VITALS: O2SAT 100
[2020-07-11 13:07] LABS: Anion Gap 5 (5-15); BUN 8 mg/dL (7-18); BUN/Creat Ratio 12.8 RATIO (10-20); Chloride 106 mmol/L (98-107); Creatinine, Serum 0.62 mg/dL (0.55-1.02); EST Glomerular Filtration Rate 127 mL/min (>60); Est Glom Filt Rate - Afr Amer 154 mL/min (>60); Estimated Creatinine Clearance 113.52 ml/min; Glucose 78 mg/dL (74-106); Potassium 4.1 mmol/L (3.5-5.1); Sodium Level 137 mmol/L (136-145)
[2020-07-11 13:55] LABS: Color, Urine Yellow (Yellow); Glucose, Dipstick Normal (Normal); Ketone-Dipstick Negative (Negative); Leukocyte Esterase-Dipstick 100 /ul (Negative); Nitrite-Dipstick Negative (Negative); Occult Blood-Urine Negative /ul (Negative); Protein-Dipstick 15 mg/dl (Negative); Specific Gravity, Urine 1.015 (1.002-1.030); Urine Bilirubin Dipstick Negative (Negative); Urine Clarity Sl. Cloudy (Clear); Urine Urobilinogen Normal (Normal); Urine pH 6.5 (5.0 - 8.0)
[2020-07-11 14:19] LABS: Red Blood Cells-Urine 0-5 SEEN /hpf (0-5); White Blood Cells 5-10 SEEN /hpf (0-5)
[2020-07-11 14:20] LABS: Bacteria 2+ /hpf (None Seen); Mucous, Urine 2+ /hpf (<or=2+); Renal Epithelial Cells 0-5 SEEN /hpf (0-5); Squamous Epithelial Cells - UA 25-50 SEEN /hpf (5-10)
[2020-07-11 14:22] VITALS: BP 122/63; PULSE 67; RESP 18; O2SAT 100
== END 2020-07-11 15:01 | disposition home or self-care (01) ==
LOC: ED 12:43
PROVIDERS: Emergency Provider Emergency Medicine; PCP Family Medicine
DX: O99.891 Other specified diseases and conditions complicating pregnancy (principal); R55 Syncope and collapse; O23.41 Unspecified infection of urinary tract in pregnancy, first trimester; B96.4 Proteus (mirabilis) (morganii) as the cause of diseases classified elsewhere; Z3A.12 12 weeks gestation of pregnancy
CPT/HCPCS: 71045; 80048; 81001; 84484; 85025; 87077; 87086; 87088; 87186; 93005; 96360; 99284; J7040

== ENCOUNTER 2020-08-22 18:35 | Emergency (ER) | payer BC, MEDICAID, SELFPAY ==
[2020-07-28 15:39] VITALS: BMI 49.1
[2020-08-22 18:36] VITALS: BP 137/75; PULSE 82; RESP 16; TEMP 35.8; O2SAT 97; BMI 49.4
--- NOTE | 2020-08-22 19:07 | ED.DCSUM_ITS ---
- ER Visit Summary Date of Service: 08/22/20 Chief Complaint: Headache History of Present Illness: The patient is a 20 F history of headaches, reflux currently 18 weeks G1, P0 Ab0. States she woke up morning with a headache. Skin diffuse all over. She denies any fever or chills. No head trauma. No nausea, vomiting or diarrhea. No neck stiffness. She is a history of headaches in the past had multiple headaches last summer. She said she had migraines when she was around 4 years old. She is on no blood thinners. She denies any trouble with her vision, speech or moving her arms or legs or numbness. Physical Examination: Well-appearing 20-year-old female vital signs stable afebrile. Initial blood pressure 137/75. H EENT exam unremarkable. Pupils are unreactive laser motions are intact. Normal speech no facial droop. No signs of trauma. Neck nontender no meningismus able to touch her chin to chest. Lungs clear to auscultation bilaterally. Heart regular rhythm no murmur. Abdomen soft nontender normal bowel sounds no peritoneal signs. Patient moving all 4 extremities. Calves nontender. No edema. Neurologically she is awake alert. No focal motor deficits. No facial droop. Normal speech. Fingertip to nose within normal limits. NIH score of 0. No focal motor deficits. Test Results: None Emergency Department Course and Treatment: 18 weeks female with a hi story of migraines and other headaches complaining of a headache. She be treated with IV fluids, Zofran, Benadryl and reevaluate. She can get a ride home. Repeat exam at 7:54 PM patient is doing well. Neurologic exam remains normal. NIH is 0. Headache is completely resolved. Significant other is present in room. Patient is joking with that person. Treatment Plan: Plenty of fluids and rest. Tylenol as needed. Follow-up if not improving. Return if worse. Disposition: Discharge Impression: Acute cephalgia Currently 18 weeks by history This note was generated with [employer] dictation software. It may contain incorrect words, spelling, and punctuation that were not noted in review of the chart prior to signing ED Disposition - Plan for ED Patient: Referrals: Ramone Joseph MD [Primary Care Provider] -
--- NOTE | 2020-08-22 19:25 | EKG12_ITS ---
Test Reason : AFIB Blood Pressure : / mmHG Vent. Rate : 081 BPM Atrial Rate : 097 BPM P-R Int : 000 ms QRS Dur : 090 ms QT Int : 332 ms P-R-T Axes : 000 047 210 degrees QTc Int : 385 ms Atrial fibrillation Abnormal ECG Confirmed by MAGAN ANAND, GREGORY ([id number]), brands editor ALANA SEARS ([id number]) on 08/25/2020 8:20:54 AM Referred By: Luiza Hoffman Confirmed By:GREGORY CARRERO MD
[2020-08-22] MEDS: 0.9% Normal Saline 1,000 ML 1000 ML IV (19:42)
[2020-08-22] MEDS: Ondansetron 4 MG/2 ML Vial IV (19:42)
[2020-08-22] MEDS: DiphenhydrAMINE 50 MG/ML Syringe IV (19:42)
--- NOTE | 2020-08-22 19:56 | ED.DEP ---
ED Disposition - Plan for ED Patient: Disposition: Home or Assisted Living Instructions: ED Headache Unspecified Referrals: Ramone Joseph MD [Primary Care Provider] - 3-5 Days if not improving Additional Instructions: Plenty of fluids and rest. Tylenol for any headaches. Follow-up with your doctor if not improving.
[2020-08-22 20:32] VITALS: RESP 16
== END 2020-08-22 21:13 | disposition home or self-care (01) ==
PROVIDERS: Emergency Provider Emergency Medicine; PCP Family Medicine
DX: O26.892 Other specified pregnancy related conditions, second trimester (principal); R51.9 Headache, unspecified; O99.612 Diseases of the digestive system complicating pregnancy, second trimester; K21.9 Gastro-esophageal reflux disease without esophagitis; Z3A.18 18 weeks gestation of pregnancy
CPT/HCPCS: 93005; 96361; 96374; 96375; 99285; J7030; A4216; J2405

== ENCOUNTER → 2020-08-24 | Outpatient (CLI) | payer BC, MEDICAID, SELFPAY ==
[2020-08-24 08:24] VITALS: BMI 49.8
== END | disposition home or self-care (01) ==
LOC: LABSPEC 12:37
PROVIDERS: PCP Family Medicine; Referring Provider Obstetrics & Gynecology; Visit Provider Obstetrics & Gynecology
DX: O23.40 Unspecified infection of urinary tract in pregnancy, unspecified trimester (principal); Z3A.00 Weeks of gestation of pregnancy not specified
CPT/HCPCS: 87077; 87086; 87088; 87186

== ENCOUNTER → 2020-09-21 | Outpatient (CLI) | payer BC, MEDICAID, SELFPAY ==
[2020-09-21 13:06] VITALS: BMI 49.9
== END | disposition home or self-care (01) ==
LOC: LABSPEC 16:28
PROVIDERS: PCP Family Medicine; Referring Provider Obstetrics & Gynecology; Visit Provider Obstetrics & Gynecology
DX: O23.40 Unspecified infection of urinary tract in pregnancy, unspecified trimester (principal); Z3A.00 Weeks of gestation of pregnancy not specified
CPT/HCPCS: 87077; 87086; 87088; 87186

== ENCOUNTER 2020-10-10 19:24 | Outpatient (CLI) | payer BC, MEDICAID, SELFPAY ==
[2020-09-21 13:06] VITALS: BMI 49.9
[2020-10-10] VITALS (9 sets, daily range): BP systolic 117–150; BP diastolic 58–89; PULSE 45–90; RESP 15–20; TEMP 36.6–36.8; O2SAT 81–100; BMI 50.5
--- NOTE | 2020-10-10 19:35 | ED.RN ---
PER DR. GIL, PT TO BE EVALUATED BY ED PHYSICIAN PRIOR TO CALLING OB.
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
[2020-10-10] MEDS: Ondansetron 4 MG/2 ML Vial IV (19:47)
[2020-10-10] MEDS: 0.9% Normal Saline 1,000 ML 1000 ML IV (19:47)
--- NOTE | 2020-10-10 19:55 | ED.RN ---
JULIANNA VELA AT BEDSIDE WITH US. REPORTS HEART MOVEMENT.
[2020-10-10 20:12] LABS: Absolute Neutrophil Count 8.9 X10^3/uL (2.0-7.7); Basophil# 0.04 X10^3/uL; Basophil% 0.3 % (0-1); Eosinophil# 0.39 X10^3/uL; Eosinophils% 2.9 % (0-5); Hematocrit 35.3 % (37-47); Hemoglobin 11.4 g/dL (12.0-15.0); Lymphocyte % 24.3 % (19-41); Mean Corp Hgb Conc 32.3 g/dL (32-36); Mean Corpuscular Hgb 28.4 pg (27.0-32.0); Mean Corpuscular Volume 87.8 fL (81-99); Mean Platelet Vol. 9.5 fl (6.2-12.0); Monocyte# 0.87 X10^3/uL; Monocyte% 6.4 % (0-10); NRBC Flagged by Analyzer 0 % (0-5); Neutrophil # 8.92 X10^3/uL (2.7-7.7); Neutrophil % 65.5 % (47-70); Platelet Count 354 K/mm3 (150-450); RBC Distribution Width CV 13.3 % (11.6-14.6); RBC Distribution Width SD 42.8 fl (35.1-43.9); Red Blood Count 4.02 M/mm3 (4.2-5.4); White Blood Count 13.6 K/mm3 (4.4-11.0)
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
[2020-10-10 20:20] LABS: Anion Gap 7 (5-15); BUN 6 mg/dL (7-18); BUN/Creat Ratio 10.9 RATIO (10-20); Calcium,Total 8.3 mg/dL (8.5-10.1); Chloride 109 mmol/L (98-107); Creatinine, Serum 0.55 mg/dL (0.55-1.02); EST Glomerular Filtration Rate 146 mL/min (>60); Est Glom Filt Rate - Afr Amer 177 mL/min (>60); Estimated Creatinine Clearance 126.89 ml/min; Glucose 94 mg/dL (74-106); Potassium 3.6 mmol/L (3.5-5.1); Sodium Level 138 mmol/L (136-145)
--- NOTE | 2020-10-10 20:42 | ED.RN ---
PT TRANSFERRED TO OB FROM ED FOR OBSERVATION. PT PLACED IN WHEELCHAIR AND ASSISTED TO OB BY THIS RN. IV REMAINS IN PLACE DIRECTED BY OB. REPORT CALLED TO NADEGE RAPP.
[2020-10-10 21:45] LABS: Prothrombin Time (Protime)PT. 12.7 SECONDS (11.7-14.9)
[2020-10-10 21:46] LABS: Fibrinogen 520 mg/dl (203-444); Partial Thromboplast Time 31.4 Seconds (24.1-36.2)
[2020-10-10] MEDS: Calcium Carbonate 500 MG Tablet 1000 MG PO (23:33)
[2020-10-11 00:53] VITALS: BP 122/60; PULSE 86; TEMP 36.7
[2020-10-11 09:39] LABS: Kleihauer-Betke Negative
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
== END 2020-10-11 01:00 | disposition home or self-care (01) ==
LOC: ED 20:16 → WPOUT 20:49 → WP 20:49
PROVIDERS: Emergency Provider Emergency Medicine; PCP Family Medicine; Visit Provider Obstetrics & Gynecology
DX: Z04.1 Encounter for examination and observation following transport accident (principal); O26.892 Other specified pregnancy related conditions, second trimester; R10.30 Lower abdominal pain, unspecified; R10.11 Right upper quadrant pain; O99.612 Diseases of the digestive system complicating pregnancy, second trimester; K21.9 Gastro-esophageal reflux disease without esophagitis; Z3A.25 25 weeks gestation of pregnancy
CPT/HCPCS: 96361; 96374; 59025; 59050; 74177; 80048; 85025; 85384; 85460; 85610; 85730; 99218; 99284; J7030; Q9967; A4216; G0378; J2405

== ENCOUNTER → 2020-10-23 12:43 | Outpatient (CLI) | payer MEDICAID, SELFPAY ==
[2020-10-23 11:14] VITALS: BMI 50.6
[2020-10-23 14:17] LABS: Amphetamine Urine VISTA NEGATIVE (<1000 ng/mL); Barbiturate Urine VISTA NEGATIVE (< 200 ng/mL); Benzodiazepine Urine VISTA NEGATIVE (< 200 ng/mL); Cocaine Urine VISTA NEGATIVE (< 300 ng/mL); Ecstacy Urine VISTA NEGATIVE (< 500 ng/mL); Methadone Urine VISTA NEGATIVE (< 300 ng/mL); PCP Urine VISTA NEGATIVE (< 25 ng/mL); THC Urine VISTA POSITIVE (< 50 ng/mL); Vista UDS pH Range 7
== END ==
PROVIDERS: PCP Family Medicine; Referring Provider Obstetrics & Gynecology; Visit Provider Obstetrics & Gynecology
DX: O23.40 Unspecified infection of urinary tract in pregnancy, unspecified trimester (principal); O99.320 Drug use complicating pregnancy, unspecified trimester; F12.10 Cannabis abuse, uncomplicated; Z3A.00 Weeks of gestation of pregnancy not specified
CPT/HCPCS: 80307; 87077; 87086; 87088; 87186

== ENCOUNTER → 2020-11-03 12:39 | Outpatient (CLI) | payer MEDICAID, SELFPAY ==
[2020-10-23 11:14] VITALS: BMI 50.6
--- NOTE | 2020-11-03 12:41 | US_ITS ---
STUDY: SECOND AND THIRD TRIMESTER OBSTETRICAL ULTRASOUND - LIMITED REASON FOR EXAM: Female, 20 years old growth LMP: 04/16/2020. PRIOR ULTRASOUND: None. TECHNIQUE: Transabdominal TECHNICAL QUALITY: Adequate. FINDINGS: There is a single intrauterine fetus. The fetus is in a cephalic presentation. There is demonstrated cardiac activity with a heart rate of 131 bpm. There is a normal amniotic fluid volume. The largest amniotic fluid pocket measures 5 cm x 5.1 cm. The amniotic fluid index (JOHN) is 15.4 cm. The placenta is anterior in location and is not low lying. There are Grade 1 placental changes. The cervix measures 3 cm in length. BIOMETRY: BPD: 7.19 cm: 28 weeks, 6 days HC: 26.54 cm: 28 weeks, 6 days AC: 24.68 cm: 28 weeks, 6 days FL: 5.38 cm: 28 weeks, 3 days Age by LMP: 28 weeks, 5 days. WES by LMP: 01/21/2021. age by prior US: 28 weeks, 4 days. WES by prior US: 01/22/2021. Estimated weight: 1293 grams, +/- 194 grams, 41.5 percentile. US/OB Limited With Biometrics IMPRESSION: Single live intrauterine gestation with a mean gestational age of 28 weeks and 4 days. Electronically Signed: Gopal Roque MD at 14:51 EDT , Service support ,
== END ==
PROVIDERS: PCP Family Medicine; Referring Provider Obstetrics & Gynecology; Visit Provider Obstetrics & Gynecology
DX: Z34.93 Encounter for supervision of normal pregnancy, unspecified, third trimester (principal)
CPT/HCPCS: 76816

== ENCOUNTER → 2020-11-11 13:33 | Outpatient (CLI) | payer MEDICAID, SELFPAY ==
[2020-11-11 13:02] VITALS: BMI 50.3
[2020-11-11 13:59] LABS: Absolute Neutrophil Count 7.9 X10^3/uL (2.0-7.7); Basophil# 0.04 X10^3/uL; Basophil% 0.3 % (0-1); Eosinophil# 0.71 X10^3/uL; Eosinophils% 5.6 % (0-5); Hematocrit 34.8 % (37-47); Hemoglobin 11.2 g/dL (12.0-15.0); Lymphocyte % 24.5 % (19-41); Mean Corp Hgb Conc 32.2 g/dL (32-36); Mean Corpuscular Hgb 27.7 pg (27.0-32.0); Mean Corpuscular Volume 85.9 fL (81-99); Mean Platelet Vol. 9.7 fl (6.2-12.0); Monocyte# 0.82 X10^3/uL; Monocyte% 6.5 % (0-10); NRBC Flagged by Analyzer 0 % (0-5); Neutrophil # 7.88 X10^3/uL (2.7-7.7); Neutrophil % 62.5 % (47-70); Platelet Count 312 K/mm3 (150-450); RBC Distribution Width CV 13.1 % (11.6-14.6); RBC Distribution Width SD 40.8 fl (35.1-43.9); Red Blood Count 4.05 M/mm3 (4.2-5.4); White Blood Count 12.6 K/mm3 (4.4-11.0)
[2020-11-11 14:07] LABS: Glucose Challenge Gest 1H 50g 101 mg/dL (70-140)
== END ==
PROVIDERS: PCP Family Medicine; Referring Provider Obstetrics & Gynecology; Visit Provider Obstetrics & Gynecology
DX: Z34.93 Encounter for supervision of normal pregnancy, unspecified, third trimester (principal); Z13.1 Encounter for screening for diabetes mellitus
CPT/HCPCS: 36415; 82950; 85025

== ENCOUNTER → 2020-11-27 | Outpatient (CLI) | payer MEDICAID, SELFPAY ==
[2020-11-27 14:07] VITALS: BMI 50.5
== END | disposition home or self-care (01) ==
LOC: LABSPEC 16:37
PROVIDERS: PCP Family Medicine; Referring Provider Obstetrics & Gynecology; Visit Provider Obstetrics & Gynecology
DX: Z34.93 Encounter for supervision of normal pregnancy, unspecified, third trimester (principal)
CPT/HCPCS: 87086; 87088

== ENCOUNTER → 2020-12-24 16:16 | Outpatient (CLI) | payer MEDICAID, SELFPAY ==
[2020-12-24 13:55] VITALS: BMI 50.5
== END ==
PROVIDERS: PCP Obstetrics & Gynecology
DX: Z34.00 Encounter for supervision of normal first pregnancy, unspecified trimester (principal)
CPT/HCPCS: 87077; 87081; 87186

== ENCOUNTER → 2020-12-25 13:23 | Outpatient (CLI) | payer MEDICAID, SELFPAY ==
[2020-10-23 11:14] VITALS: BMI 50.6
[2020-12-24 13:55] VITALS: BMI 50.5
--- NOTE | 2020-12-25 13:25 | US_ITS ---
STUDY: SECOND AND THIRD TRIMESTER OBSTETRICAL ULTRASOUND - LIMITED REASON FOR EXAM: Female, 20 years old growth LMP: 04/16/2020. PRIOR ULTRASOUND: Comparison is made with prior study dated 11/03/2020. TECHNIQUE: Transabdominal TECHNICAL QUALITY: Adequate. FINDINGS: There is a single intrauterine fetus. The fetus is in a cephalic presentation. There is demonstrated cardiac activity with a heart rate of 136 bpm. There is a normal amniotic fluid volume. The largest amniotic fluid pocket measures 4.9 cm. The amniotic fluid index (JOHN) is 14.6 cm. The placenta is anterior in location and is not low lying. There are Grade 2 placental changes. The cervix measures 3.71 cm in length. BIOMETRY: BPD: 8.61 cm: 34 weeks, 5 days HC: 32.29 cm: 37 weeks, 3 days AC: 31.43 cm: 35 weeks, 2 days FL: 6.73 cm: 34 weeks, 3 days Age by LMP: 36 weeks, 1 days. WES by LMP: 01/21/2021. age by prior US: 36 weeks, 0 days. WES by prior US: 01/22/2021. age by current US: 35 weeks, 4 days. WES by current US: 01/25/2021. Estimated weight: 2610 grams, +/- 391 grams, 27 percentile. US/OB Limited With Biometrics IMPRESSION: Single live intrauterine gestation with a mean gestational age of 35 weeks and 4 days. The measurements obtained today fail within normal expected range. Electronically Signed: Gopal Roque MD at 15:17 EDT , Service support ,
== END ==
PROVIDERS: PCP Obstetrics & Gynecology; Referring Provider Obstetrics & Gynecology; Visit Provider Obstetrics & Gynecology
DX: Z34.00 Encounter for supervision of normal first pregnancy, unspecified trimester (principal)
CPT/HCPCS: 76816

== ENCOUNTER 2021-01-05 21:38 | Outpatient (CLI) | payer MEDICAID, SELFPAY ==
[2020-12-31 14:58] VITALS: BMI 50.5
[2021-01-05 21:39] VITALS: BP 143/87; PULSE 105; RESP 18; TEMP 36.1; O2SAT 99; BMI 104.1
--- NOTE | 2021-01-05 21:46 | ED.RN ---
pt taken down to OB from triage for headache and BP of 143/87
[2021-01-05 22:05] VITALS: TEMP 36.9
[2021-01-05 22:10] VITALS: BP 130/68; PULSE 94
[2021-01-05 22:17] VITALS: PULSE 97; O2SAT 99
[2021-01-05 22:18] VITALS: BMI 54.3
[2021-01-05 23:31] LABS: Color, Urine Yellow (Yellow); Glucose, Dipstick Normal (Normal); Ketone-Dipstick 5 mg/dl (Negative); Leukocyte Esterase-Dipstick 25 /ul (Negative); Nitrite-Dipstick Negative (Negative); Occult Blood-Urine Negative /ul (Negative); Protein-Dipstick 30 mg/dl (Negative); Specific Gravity, Urine 1.025 (1.002-1.030); Urine Bilirubin Dipstick Negative (Negative); Urine Clarity Clear (Clear); Urine Urobilinogen 1 mg/dl (Normal)
[2021-01-05 23:37] VITALS: BP 131/73; PULSE 86
[2021-01-06 00:01] LABS: Protein, Urine (Random) 49.4 mg/dL (<11.9); Protein:Creat Ratio 167 mg/g CRE (0-200)
--- NOTE | 2021-01-12 10:37 | OB.TRI.PN ---
Progress Notes Date of Service: 01/05/21 Progress Note: Patient presents for triage evaluation secondary to borderline bps and swelling FHT: 130 Moderate variability reactive no decelerations category I tracing [place]: no regular Contractions Assessment and plan: edema of , nl urine protein and blood pressures WNL, Reactive NST, reassuring maternal and status patient discharged to home to follow-up as scheduled. See problem list details for additional plan information. Laboratory Studies: Laboratory Tests 01/05/21 01/05/21 Range/Units 23:20 23:20 Urine Color Yellow (Yellow) Urine Clarity Clear (Clear) Urine pH 6.0 (5.0 - 8.0) Ur Specific [place] 1.025 (1.002-1.030) Urine Protein 30 H (Negative) mg/dl Urine Glucose (UA) Normal (Normal) mg/dl Urine Ketones 5 H (Negative) mg/dl Urine Occult Blood Negative (Negative) /ul Urine Nitrite Negative (Negative) Urine Bilirubin Negative (Negative) mg/dL Urine Urobilinogen 1 H (Normal) mg/dl Ur Leukocyte Esterase 25 H (Negative) /ul U Random Total Protein 49.4 H (<11.9) mg/dL Urine Creatinine 296.00 (NO RANGE EST.) mg/dL Protein/Creatinin Ratio 167 (0-200) mg/g CRE Charges/Coding Procedures Urinary/Genital 52xxx-59xxx: 85789-57 non-stress test Interp Assessment & Plan (1) Edema during :
== END 2021-01-06 00:15 | disposition home or self-care (01) ==
LOC: WPOUT 21:55 → WP 21:56
PROVIDERS: PCP Family Medicine; Visit Provider Obstetrics & Gynecology
DX: O12.00 Gestational edema, unspecified trimester (principal); Z3A.00 Weeks of gestation of pregnancy not specified
CPT/HCPCS: 59025; 59050; 81002; 82570; 84156; 99218; G0378

== ENCOUNTER → 2021-01-15 14:40 | Outpatient (CLI) | payer MEDICAID, SELFPAY ==
[2021-01-15 13:50] VITALS: BMI 55.0
[2021-01-15 15:04] LABS: Absolute Lymphocyte Count 3.44 X10^3/uL (0.83-4.51); Absolute Neutrophil Count 7.7 X10^3/uL (2.0-7.7); Basophil# 0.03 X10^3/uL; Basophil% 0.2 % (0-1); Eosinophil# 0.27 X10^3/uL; Eosinophils% 2.2 % (0-5); Hematocrit 33.3 % (37-47); Hemoglobin 10.8 g/dL (12.0-15.0); Lymphocyte # 3.44 X10^3/ul (0.83-4.51); Lymphocyte % 27.9 % (19-41); Mean Corp Hgb Conc 32.4 g/dL (32-36); Mean Corpuscular Hgb 26.9 pg (27.0-32.0); Mean Corpuscular Volume 82.8 fL (81-99); Mean Platelet Vol. 10.1 fl (6.2-12.0); Monocyte# 0.88 X10^3/uL; Monocyte% 7.1 % (0-10); NRBC Flagged by Analyzer 0 % (0-5); Neutrophil # 7.65 X10^3/uL (2.7-7.7); Neutrophil % 62.1 % (47-70); Platelet Count 335 K/mm3 (150-450); RBC Distribution Width CV 14.1 % (11.6-14.6); RBC Distribution Width SD 42.5 fl (35.1-43.9); Red Blood Count 4.02 M/mm3 (4.2-5.4); White Blood Count 12.3 K/mm3 (4.4-11.0)
[2021-01-15 15:19] LABS: Protein, Urine (Random) 35.5 mg/dL (<11.9); Protein:Creat Ratio 176 mg/g CRE (0-200)
[2021-01-15 15:21] LABS: ALB/GLOB Ratio 0.6 RATIO (0.9-2.4); AST(SGOT) 16 U/L (15-37); Alanine Aminotransfer ALT/SGPT 23 U/L (13-56); Albumin, Serum 2.4 g/dL (3.2-5.0); Alkaline Phosphatase 164 U/L (45-117); Anion Gap 6 (5-15); BUN 5 mg/dL (7-18); BUN/Creat Ratio 10.5 RATIO (10-20); Calcium,Total 8.2 mg/dL (8.5-10.1); Chloride 111 mmol/L (98-107); Creatinine, Serum 0.48 mg/dL (0.55-1.02); EST Glomerular Filtration Rate 172 mL/min (>60); Est Glom Filt Rate - Afr Amer 209 mL/min (>60); Globulin 4.3 g/dL (2.2-4.2); Glucose 74 mg/dL (74-106); Protein, Total 6.7 g/dL (6.4-8.2); Sodium Level 139 mmol/L (136-145)
[2021-01-15 23:01] LABS: Xtra Tube EP Lab EXTRA TUBE
== END ==
PROVIDERS: PCP Family Medicine; Referring Provider Obstetrics & Gynecology; Visit Provider Obstetrics & Gynecology
DX: O16.3 Unspecified maternal hypertension, third trimester (principal)
CPT/HCPCS: 36415; 80053; 82570; 84156; 85025

== ENCOUNTER 2021-01-18 11:35 | Outpatient (CLI) | payer MEDICAID, SELFPAY ==
[2021-01-15 13:50] VITALS: BMI 55.0
[2021-01-18 11:49] VITALS: BMI 53.3
[2021-01-18 12:17] VITALS: BP 124/65; PULSE 68
[2021-01-18 12:18] VITALS: TEMP 36.4
[2021-01-18 12:28] VITALS: PULSE 70; O2SAT 99
[2021-01-18 12:29] LABS: ROM Internal Control Test YES-OK TO RESULT pt. (Internal QC); ROM Patient Test Negative (Negative)
--- NOTE | 2021-01-19 07:22 | OB.TRI.PN_ITS ---
Progress Notes Date of Service: 01/18/21 Progress Note: Patient presents for triage evaluation secondary to possible ROM and ctx FHT: 140 Moderate variability reactive no decelerations category I tracing [place]: irregular Contractions Assessment and plan: false labor membrances intact Reactive NST, reassuring mate rnal and status patient discharged to home to follow-up as scheduled. See problem list details for additional plan information. Laboratory Studies: Laboratory Tests 01/18/21 Range/Units 12:00 Vag Amniotic Fld Detect Negative (Negative) Charges/Coding Procedures Urinary/Genital 52xxx-59xxx: 84570-15 non-stress test Interp Assessment & Plan (1) False labor: COMMENT: 01/18 triage, nl bps there
== END 2021-01-18 13:00 | disposition home or self-care (01) ==
LOC: WPOUT 11:40 → WP 11:44
PROVIDERS: PCP Family Medicine; Referring Provider Obstetrics & Gynecology; Visit Provider Obstetrics & Gynecology
DX: O47.9 False labor, unspecified (principal)
CPT/HCPCS: 59025; 59050; 84112

== ENCOUNTER 2021-01-20 16:10 | Inpatient (IN) | payer MEDICAID, SELFPAY ==
[2021-01-19 09:50] VITALS: BMI 53.3
[2021-01-20] VITALS (18 sets, daily range): BP systolic 125–142; BP diastolic 63–84; PULSE 67–86; TEMP 36.3–36.7; O2SAT 98–99; BMI 54.8
--- NOTE | 2021-01-20 13:29 | US_ITS ---
STUDY: OBSTETRICAL ULTRASOUND - BIOPHYSICAL PROFILE REASON FOR EXAM: Female, 20 years old decreased movement LMP: 04/16/2020. PRIOR ULTRASOUND: Comparison is made with prior study dated 12/25/2020. TECHNIQUE: Transabdominal TECHNICAL QUALITY: Adequate. FINDINGS: There is a single intrauterine fetus. The fetus is in a cephalic presentation. There is demonstrated cardiac activity with a heart rate of 144 bpm. There is a normal amniotic fluid volume. The largest amniotic fluid pocket measures 2.9 cm x 3.1 cm. The amniotic fluid index (JOHN) is 9.76 cm. The placenta is anterior in location and is not low lying. There are Grade 1 placental changes. Age by LMP: 39 weeks, 6 days. WES by LMP: 01/21/2021. age by prior US: 39 weeks, 2 days. WES by prior US: 01/25/2021. BIOPHYSICAL PROFILE: Breathing Movements (FBM): 2 Gross Body Movements (GBM): 2 Tone (FT): 2 Amniotic Fluid Volume (AFV): 2 TOTAL SCORE: 8 / 8 US/Biophysical Prof W/O Non Stres IMPRESSION: Normal biophysical profile of 8/8. Electronically Signed: Gopal Roque MD at 14:34 EDT , Service support ,
[2021-01-20 16:06] LABS: Hematocrit 34.5 % (37-47); Mean Corp Hgb Conc 31.9 g/dL (32-36); Mean Corpuscular Hgb 26.6 pg (27.0-32.0); Mean Corpuscular Volume 83.3 fL (81-99); Mean Platelet Vol. 10.9 fl (6.2-12.0); Platelet Count 348 K/mm3 (150-450); RBC Distribution Width CV 14.4 % (11.6-14.6); RBC Distribution Width SD 42.9 fl (35.1-43.9); Red Blood Count 4.14 M/mm3 (4.2-5.4); White Blood Count 12.4 K/mm3 (4.4-11.0)
[2021-01-20 16:20] LABS: Amphetamine Urine VISTA NEGATIVE (<1000 ng/mL); Barbiturate Urine VISTA NEGATIVE (< 200 ng/mL); Benzodiazepine Urine VISTA NEGATIVE (< 200 ng/mL); Cocaine Urine VISTA NEGATIVE (< 300 ng/mL); Ecstacy Urine VISTA NEGATIVE (< 500 ng/mL); Methadone Urine VISTA NEGATIVE (< 300 ng/mL); PCP Urine VISTA NEGATIVE (< 25 ng/mL); Protein, Urine (Random) 38.5 mg/dL (<11.9); Protein:Creat Ratio 197 mg/g CRE (0-200); THC Urine VISTA NEGATIVE (< 50 ng/mL); Vista UDS pH Range 6
[2021-01-20 16:33] LABS: AST(SGOT) 16 U/L (15-37); Alanine Aminotransfer ALT/SGPT 18 U/L (13-56); Creatinine, Serum 0.51 mg/dL (0.55-1.02); EST Glomerular Filtration Rate 158 mL/min (>60); Est Glom Filt Rate - Afr Amer 191 mL/min (>60); Estimated Creatinine Clearance 130.56 ml/min; Uric Acid 4.6 mg/dL (2.6-6.0)
--- NOTE | 2021-01-20 16:39 | HP.PCM.OB_ITS ---
HPI - General General Date of Admission: 01/20/21 HPI Narrative CODY QUEEN, is a 20 F G1, P0 at 39 weeks 6 days who presents to triage for elevated blood pressures and decreased movement. Blood pressure is normal and NST reactive, however patient reports movement is still significantly less than normal. Plan for induction of labor Maternal Data Information WES Calculator Estimated Delivery Date Method Current WG Current Estimate 01/21/21 Ultrasound #1 39w 6d Other Estimates 01/31/21 LMP (Uncertain) 38w 3d [facility] Medical History Anemia Chronic eczema Chronic GERD Obesity affecting Home Medications hydrocortisone 1 % topical cream 1 applic TOPICAL TID PRN 06/23/20 [History Last Taken 01/04/21] omeprazole 40 mg capsule,delayed release 40 mg PO DAILY 06/23/20 [History Last Taken 01/13/21] vitamin#30 30 mg iron-10 mg iron-folic acid 1 mg-omg3 capsule 1 cap PO DAILY 07/28/20 [History Last Taken 01/18/21] mupirocin 1 applic TOPICAL TID PRN 10/10/20 [History Last Taken 01/05/21] Allergy/AdvReac Type Severity Reaction Status Date / Time amoxicillin [From Augmentin] AdvReac Swelling Verified 01/20/21 14:14 clavulanic acid AdvReac Swelling Verified 01/20/21 14:14 [From Augmentin] Family History Mother PCOS (polycystic ovarian syndrome) Surgical History Pilonidal cyst Social History adopted: No household members: significant other housing: house current occupational status: employed current occupation: [employer] pets and animals: Yes sexually active: No Smoking Status: Never smoker second hand exposure: Yes alcohol intake: current details: Not while substance use type: former substance user and marijuana caffeine: Yes frequency: 1-2 times per week seatbelt use: always do you feel safe at home: Yes additional social history: BF: Balwinder ([email or web address]) History 1 Elective abortions Hx Para Spontaneous abortions Hx # Term Pregnancies Ectopic pregnancies Hx # Pregnancies Multiple births # of living children Visit Details Expected Delivery Route/Plan Labor Preferences- CB/BF classes: declines labor support person: Balwinder labor intervention preferences: open to standard interventions pain management options preferred: epidural cut cord/dad catch: cord, maybe catch : [] PP control planned: [] discussed possible routes of delivery and associated risks: discussed possible delivery modalities and possible indications for each including R/B/A of , VAVD, FAVD, and CS. questions answered. special requests: [] Plans flu vaccine: decline tdap vaccine: given 10/23 rhogam: [na LARC form signed: yes movement and labor precautions reviewed. Problem list reviewed and updated with the most current plan of care details and appropriate orders placed. Relevant counseling for the gestational age provided. Continue routine care and follow up unless otherwise noted in visit notes/problem list details OB Flowsheet Initial Weight: Not Recorded Date -?-?-?-?-?-?-?-?-?-?-?-?- EGA Weight BP Urine Prot -?-?-?-?-?-?-?-?-?-?-?-?- Glucose FHR FuHt Pres Dilation -?-?-?-?-?-?-?-?-?-?-?-?- Effaced St Visit Note 06/29/20 -?-?-?-?-?-?-?-?-?-?-?-?- 10w 4d 273 lb 2 oz 132/86 -?-?-?-?-?-?-?-?-?-?-?-?- 168 -?-?-?-?-?-?-?-?-?-?-?-?- GP - CRL 32mm NO T consistent with LMP. WES 01/21/21 07/28/20 -?-?-?-?-?-?-?-?-?-?-?-?- 14w 5d 269 lb 120/62 -?-?-?-?-?-?-?-?-?-?-?-?- 150 -?-?-?-?-?-?-?-?-?-?-?-?- Sm- no vb crampi ng 08/24/20 -?-?-?-?-?-?-?-?-?-?-?-?- 18w 4d 272 lb 6 oz 134/80 Nega tive -?-?-?-?-?-?-?-?-?-?-?-?- Negative 145 -?-?-?-?-?-?-?-?-?-?-?-?- GP - no cramping or bleeding. Having headaches. Recommend daily magnesium. Script sent for reglan for headaches. 08/31/20 -?-?-?-?-?-?-?-?-?-?-?-?- 19w 4d 270 lb 6 oz 116/82 -?-?-?-?-?-?-?-?-?-?-?-?- 155 0 -?-?-?-?-?-?-?-?-?-?-?-?- GP - Work in for possible funneling vs. cervical mucus on US. Cervix closed/thick/high. Plan repeat US in [address] Tolbert 09/21/20 -?-?-?-?-?-?-?-?-?-?-?-?- 22w 4d 273 lb 114/70 -?-?-?-?-?-?-?-?-?-?-?-?- 145 22 -?-?-?-?-?-?-?-?-?-?-?-?- SM- no vb lof cr amping doing well 10/23/20 -?-?-?-?-?-?-?-?-?-?-?-?- 27w 1d 277 lb 136/74 Negative -?-?-?-?-?-?-?-?-?-?-?-?- Negative 140 28 -?-?-?-?-?-?-?-?-?-?-?-?- SM- no vb lof go od fm no regular ctx cbc next visit 11/11/20 -?-?-?-?-?-?-?-?-?-?-?-?- 29w 6d 275 lb 6 oz 130/80 Nega tive -?-?-?-?-?-?-?-?-?-?-?-?- Negative 145 29 -?-?-?-?-?-?-?-?-?-?-?-?- GP - no LOF, VB, DFM, ctx. Urine culture ordered. 3rd trimester labs today. 11/19/20 -?-?-?-?-?-?-?-?-?-?-?-?- 31w 0d 276 lb 2 oz 120/78 -?-?-?-?-?-?-?-?-?-?-?-?- 135 32 0 -?-?-?-?-?-?-?-?-?-?-?-?- GP - no LOF, DFM , ctx. Had episode of bleeding this am. Had sex last night. No bleeding on exam. Reassurance provided 11/27/20 -?-?-?-?-?-?-?-?-?-?-?-?- 32w 1d 281 lb -?-?-?-?-?-?-?-?-?-?-?-?- 135 -?-?-?-?-?-?-?-?-?-?-?-?- SM- no, doing we ll no complaints 12/03/20 -?-?-?-?-?-?-?-?-?-?-?-?- 33w 0d 278 lb 2 oz 110/72 Trac e -?-?-?-?-?-?-?-?-?-?-?-?- Negative 140 -?-?-?-?-?-?-?-?-?-?-?-?- MH-NST only reac tive 12/10/20 -?-?-?-?-?-?-?-?-?-?-?-?- 34w 0d 280 lb 110/70 Negative -?-?-?-?-?-?-?-?-?-?-?-?- Negative 140 -?-?-?-?-?-?-?-?-?-?-?-?- SM- no vb lof go od fm no reuglar ctx 12/17/20 -?-?-?-?-?-?-?-?-?-?-?-?- 35w 0d 278 lb 102/80 Negative -?-?-?-?-?-?-?-?-?-?-?-?- Negative 140 -?-?-?-?-?-?-?-?-?-?-?-?- MH-NST only reac tive. Urine was negative for glucose, entry error 12/24/20 -?-?-?-?-?-?-?-?-?-?-?-?- 36w 0d 284 lb 8 oz 128/76 Nega tive -?-?-?-?-?-?-?-?-?-?-?-?- Negative 130 36 Cephalic 0 -?-?-?-?-?-?-?-?-?-?-?-?- GP - no LOF, VB, DFM, ctx. Discussed labor preferences and routes of delivery. 12/31/20 -?-?-?-?-?-?-?-?-?-?-?-?- 37w 0d 287 lb 138/70 -?-?-?-?-?-?-?-?-?-?-?-?- 140 37 -?-?-?-?-?-?-?-?-?-?-?-?- MH-no VB, LOF or CTX. Good FM. Reactive NST 01/08/21 -?-?-?-?-?-?-?-?-?-?-?-?- 38w 1d 288 lb 4 oz 138/86 Nega tive -?-?-?-?-?-?-?-?-?-?-?-?- Negative 140 38 Cephalic 1 -?-?-?-?-?-?-?-?-?-?-?-?- 50 -3 GP - no LO F, VB, DFM, ctx. Pt having significant back pain - interested in induction. Discussed cervix unfavorable - will refer to chiropractor to see if this will help with discomfort. Discussed would be concerned about increased risk of with IOL at 39w and unfavorable cervix. 01/15/21 -?-?-?-?-?-?-?-?-?-?-?-?- 39w 1d 291 lb 6 oz 142/68 122/80 1+ -?-?-?-?-?-?-?-?-?-?-?-?- Negative 140 Cephalic 2 -?-?--?-?-?-?-?-?-?-?-?-?- 6 -2 SM- no vb lof good fm no regular ctx. SM- no vb lof good fm no reg ular ctx. elevated bp- will repeat serial bps and check labs now. SM- no vb lof good fm no reg ular ctx. elevated bp- will repeat serial bps and check labs now- WNL neg proteinuria. reviewed preeclampsia precautions dc home fu monday for b check in office 01/19/21 -?-?-?-?-?--?-?-?-?-?-?-?- 39w 5d 291 lb 136/78 Negative -?-?-?-?-?-?-?-?-?-?-?-?- Negative -?-?-?-?-?-?-?-?-?-?-?-?- MH-BP check only -normal 01/20/21 -?-?-?-?-?-?-?-?-?-?-?-?- 39w 6d 292 lb 130/100 Negative -?-?-?-?-?-?-?-?-?-?-?-?- Negative 144 Cephalic -?-?-?-?-?-?-?-?-?-?-?-?- GP - Presents wi th DFM - baby has felt sluggish all day. Has not improved since BPP. BP elevated Sent to triage for r/o PreE and likely IOL for DFM. 01/20/21 -?-?-?-?-?-?-?-?-?-?-?-?- 39w 6d 290 lb 129/63 137/84 125/76 129/72 129/81 137/82 128/69 129/65 129/72 -?-?-?-?-?-?-?-?-?-?-?-?- -?-?-?-?-?-?-?-?-?-?-?-?- NST FHR Rate Baby A Baseline: 130 Variability:: Moderate Accelerations:: 15 x 15 Decelerations:: None NST Reactive:: Yes FHR Category:: Category I Uterine Activity:: irritability ROS Eyes Eyes: Reports systems reviewed and no addt'l complaints, except as documented ENT HEENT: Reports systems reviewed and no addt'l complaints, except as documented Cardiovascular Cardiovascular: Reports systems reviewed and no addt'l complaints, except as documented Respiratory/Chest Respiratory/Chest: Reports systems reviewed and no addt'l complaints, except as documented Gastrointestinal Gastrointestinal: Reports systems reviewed and no addt'l complaints, except as documented Genitourinary Genitourinary: Reports systems reviewed and no addt'l complaints, except as documented Musculoskeletal Musculoskeletal: Reports systems reviewed and no addt'l complaints, except as documented Integumentary Integumentary: Reports systems reviewed and no addt'l complaints, except as documented Neurologic Neurologic: Reports systems reviewed and no addt'l complaints, except as documented Psychiatric Psychiatric: Reports systems reviewed and no addt'l complaints, except as documented Endocrine Endocrinology: Reports systems reviewed and no addt'l complaints, except as documented Hematologic/Lymphatic Hematologic/Lymphatic: Reports systems reviewed and no addt'l complaints, except as documented Allergic/Immunologic Allergic/Immunologic: Reports systems reviewed and no addt'l complaints, except as documented Vital Signs Vital Signs Vital Signs: 01/20/21 15:10 01/20/21 15:11 01/20/21 15:21 Temperature 97.5 F L 97.4 F L Temperature Source Tympanic Pulse Rate 78 Blood Pressure 129/63 H BP Systolic 129 BP Diastolic 63 01/20/21 15:22 01/20/21 15:24 01/20/21 15:32 Temperature 97.3 F L Temperature Source Pulse Rate 81 81 Blood Pressure 137/84 H 125/76 H BP Systolic 137 125 BP Diastolic 84 76 01/20/21 15:52 01/20/21 16:02 01/20/21 16:12 Temperature Temperature Source Pulse Rate 77 86 72 Blood Pressure 129/72 H 129/81 H 137/82 H BP Systolic 129 129 137 BP Diastolic 72 81 82 07/07/21 16:22 01/20/21 16:32 Temperature Temperature Source Pulse Rate 77 67 Blood Pressure 128/69 H 129/65 H BP Systolic 128 129 BP Diastolic 69 65 Weight Weight: 290 lb Body Mass Index (BMI) 54.8 Physical Exam Const alert, oriented x3, no apparent distress, average body habitus, healthy appearing and well nourished HEENT normocephalic and moist oral mucous membranes Head and Scalp: atraumatic Eyes PERRL and EOMs intact bilaterally Neck full ROM Resp normal respiratory effort, no retractions and no use of accessory muscles Cardio regular rate and regular rhythm GI soft to palpation, non-tender and non-distended Extremity normal to inspection and full ROM Skin no rashes or lesions noted Neuro no focal motor deficits and no sensory deficits noted Psych mental status grossly normal, affect normal, speech normal and activity/motor behavior normal Labs Labs Labs: Blood Type O POSITIVE Antibody Screen NEGATIVE Hct 34.5 % (37-47) L Hgb 11.0 g/dL (12.0-15.0) L Obstetrics US Rubella IgG Antibody Reactive (Nonreactive) Hep Bs Antigen Non-Reactive (Nonreactive) Neisseria gonorrhoeae DNA (RAKESH) Negative (Negative) HIV 1&2 Antibody Non-Reactive (Nonreactive) C.trachomatis DNA (PCR) Negative (Negative) Glucose 1 Hr 50 gm 101 mg/dL (70-140) Assessment & Plan (1) Encounter for induction of labor: PLAN: Patient presents IOL for decreased movement, plan management for with cytotec/FB. Pain management: plans epidural. GBS positive - plan clindamycin in labor Management of any complications: none I have reviewed the [facility] and made any clinically relevant updates. (2) Borderline blood pressure: COMMENT: neg urine protein and labs, fu bps WNL, fu monday in office for bp check. (3) Positive GBS test: COMMENT: PCN in labor (4) Obesity affecting : QUALIFIERS: Trimester: third trimester Qualified Code(s): O99.213 - Obesity complicating , third trimester COMMENT: Needs weekly NSTs starting at 32 weeks. Normal growth US (5) UTI (urinary tract infection), affecting care of mother, antepartum: COMMENT: tx ATB; needs repeat cx at next visit; + 10/26 needs repeat culture at next appointment, repeat culture ordered 11/11 (6) Marijuana abuse: COMMENT: has not used since she found out she was expecting, plan random tox +10/23 (7) Anxiety and depression: COMMENT: not on medications, encouraged counseling (8) Chronic GERD: COMMENT: On omeprazole. 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
[2021-01-20] MEDS: 0.9% Normal Saline Single 100 ML IV.SOLN. INTRA-UTER (17:18)
[2021-01-20] MEDS: miSOPROStol 25 MCG TABLET PO (17:22)
[2021-01-20] MEDS: 0.9% Saline Lock 10 ML Syringe IV (17:22)
[2021-01-20] MEDS: miSOPROStol 50 MCG TABLET PO (21:52)
[2021-01-20] MEDS: fentaNYL 100 MCG/2 ML Ampul IV (21:53)
[2021-01-20] MEDS: Lactated Ringers 1,000 ML 50 ML IV (23:55)
[2021-01-21] VITALS (110 sets, daily range): BP systolic 95–160; BP diastolic 54–92; PULSE 64–96; TEMP 36–37.2; O2SAT 91–100
[2021-01-21] MEDS: Oxytocin 30 units/NS 500 ml 30 UNITS/500 ML IV.SOLN IV (04:19)
[2021-01-21] MEDS: Lactated Ringers 500 ML 999 ML IV ×4 (05:15→14:44)
[2021-01-21] MEDS: fentaNYL-bupivacaine (epidural) 100 ML BAG EPIDURAL ×3 (08:29→17:22)
[2021-01-21] MEDS: Lactated Ringers 1,000 ML 200 ML IV ×2 (12:15→18:24)
[2021-01-21] MEDS: Ondansetron 4 MG/2 ML Vial IV (17:09)
[2021-01-21] MEDS: Oxytocin 30 units/NS 500 ml 30 UNITS/500 ML IV.SOLN 334 UNITS IV (19:37)
--- NOTE | 2021-01-21 19:52 | EX.PCM.OBRPT ---
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 (5) Anxiety and depression: COMMENT: not on medications, encouraged counseling (6) Marijuana abuse: COMMENT: has not used since she found out she was expecting, plan random tox +10/23 (7) UTI (urinary tract infection), affecting care of mother, antepartum: COMMENT: tx ATB; needs repeat cx at next visit; + 10/26 needs repeat culture at next appointment, repeat culture ordered 11/11 (8) Positive GBS test: COMMENT: PCN in labor (9) Borderline blood pressure: COMMENT: neg urine protein and labs, fu bps WNL, fu monday in office for bp check. (10) Encounter for induction of labor: (11) Obesity affecting : QUALIFIERS: Trimester: third trimester Qualified Code(s): O99.213 - Obesity complicating , third trimester COMMENT: Needs weekly NSTs starting at 32 weeks. Normal growth US Maternal Data Information WES Calculator Estimated Delivery Date Method Current WG Current Estimate 01/21/21 Ultrasound #1 40w 0d Other Estimates 01/31/21 LMP (Uncertain) 38w 4d Vaginal Delivery Maternal Presentation Maternal Presentation: Medically Indicated Induction (decreased movement) Maternal Presentation: 20-year-old G1, P0 40 weeks gestation admitted for labor decreased movement. Patient was induced with Massey bulb and Cytotec followed by Pitocin. Type of Induction: Pitocin, Massey Bulb, Amniotomy and Cytotec Medical Reason for Induction: Compromise: list: (Decreased movement) Operative Information Date of Procedure: 01/21/21 Pre-Operative Diagnosis: Term , induction for decreased movement Post-Operative Diagnosis: Same Surgery / Procedure Performed: Spontaneous Vaginal Delivery Type of Anesthesia: Epidural Drain: Massey to straight drain Estimated Blood Loss: 200 Findings Description of Procedure: Patient began pushing and delivered the head in the [place] presentation. The head was delivered atraumatically and no nuchal cord was noted. The anterior and posterior shoulders delivered without complication followed by the rest of the infant and the was placed on the maternal abdomen. Delayed cord clamping was employed for approximately 60 seconds. Cord was clamped and cut and gentle traction was applied to the cord and the placenta delivered spontaneously immediately following it was noted to be intact with three-vessel cord. The perineum and vagina were inspected and a midline first-degree laceration was noted and repaired in the standard fashion using 3-0 Vicryl rapide suture. EBL was 200 mL. Patient and infant tolerated delivery well. Presentation: Vertex and [place] Amniotic Membrane Rupture Type: Spontaneous Amniotic Fluid Description: Clear Placental Delivery Description: Spontaneous Placenta Disposition: [facility] Cord Vessel Description: 3 Vessels Cord Entanglement: None Infant A Gender: Female Delayed Cord Clamping: Yes Post Vaginal Delivery Medications Given After Delivery: IV Pitocin Episiotomy Description: None Laceration: Midline, Perineal Extension/lac and 1st degree Complication Complications: None Procedures Urinary/Genital 52xxx-59xxx: 19873 Vaginal Delivery+ Care([facility])
--- NOTE | 2021-01-21 19:56 | PCM.DC ---
Discharge Instructions Diet Discharge Diet: No restrictions Activity Discharge Activity: Return to Normal Activity, May Not Drive (while taking narcotic pain medications.) and May Shower May resume sexual activity in: 4-6 weeks Dressing / Incision Call your doctor if your incision/area has: Continuous Slow Oozing, Sudden Increased Bleeding, Increased Pain/ Swelling, Increased Redness and Foul Smelling Discharge Follow Up Care When: Call to make an appointment with your doctor in 6 weeks. If you had elevated Blood Pressure or 4th degree laceration you will need to be seen in 2 weeks. Test Results: Test results from this visit will be discussed in further detail at your follow-up appointment, if applicable. Discharge Plan Admission Admit Date/Time: 01/20/21 16:10 Attending Provider: Luiza Hoffman Primary Care Provider: Ramone Joseph Instructions Patient Instructions: After a Vaginal Discharge Orders/Prescriptions Prescriptions: New ibuprofen [ibuprofen] 400 MG tablet 800 mg PO Q8H Qty: 30 RF: 1 Continued hydrocortisone [Cortisone (hydrocortisone)] 1 % cream 1 applic TOPICAL TID PRN (Reason: Itching) RF: 0 vitamin#30 30 mg iron-10 mg iron-folic acid 1 mg-omg3 capsule 30 mg iron-10 mg iron-1 mg capsule 1 cap PO DAILY RF: 0 mupirocin 1 APPLIC ointment 1 applic TOPICAL TID PRN (Reason: toe rash) RF: 0 No Action omeprazole 40 mg capsule,delayed release(DR/EC) 40 mg PO DAILY RF: 0 Referrals / Follow Up: Ramone Joseph MD [Primary Care Provider] -
[2021-01-21] MEDS: Ibuprofen 600 MG Tablet PO (21:59)
[2021-01-22] VITALS: BP 128/84; PULSE 78; RESP 16; TEMP 36.9
[2021-01-22 04:00] VITALS: BP 130/65; PULSE 78; RESP 16; TEMP 37
[2021-01-22] MEDS: Acetaminophen 500 MG Tablet 1000 MG PO (05:27)
[2021-01-22 07:44] VITALS: BP 120/68; PULSE 69; RESP 16; TEMP 36.7; O2SAT 96
--- NOTE | 2021-01-22 08:18 | PCM.PN.OB ---
Subjective Subjective Patient doing well without complaints. Tolerating PO. Ambulating and voiding without difficulty. Breast feeding well. Denies chest pain, shortness of breath, calf pain/swelling, fevers, chills, lightheadedness. Objective Data Objective Data Vital Signs: Vital Signs Temp Pulse Resp BP Pulse Ox 98.1 F 69 16 120/68 96 01/22/21 07:44 01/22/21 07:44 01/22/21 07:44 01/22/21 07:44 01/22/21 07:44 Oxygen Delivery Method Room Air Weight: 290 lb Body Mass Index (BMI) 54.8 Intake & Output: Intake and Output for Last 24 Hours 01/20/21 01/21/21 01/22/21 23:59 23:59 23:59 Intake Total 5369.64 / 5369.64 Output Total 700 / 700 Balance 4669.64 / 4669.64 Lab / Micro Data Result Diagrams: 01/20/21 15:45 01/20/21 15:45 Micro: Microbiology 01/20/21 17:25 Mucosa - Nose SARS-CoV-2 Antigen (Rapid) - Final ROS Constitutional Constitutional: Denies fever(s) Cardiovascular Cardiovascular: Denies chest pain, dyspnea or lightheadedness Gastrointestinal Gastrointestinal: Reports abdominal pain; Denies constipation or diarrhea Neurologic Neurologic: Denies dizziness or headache(s) Physical Exam Const alert, oriented x3, no apparent distress, average body habitus, healthy appearing and well nourished HEENT normocephalic Head and Scalp: atraumatic Eyes PERRL and EOMs intact bilaterally Neck full ROM Lymph Lymphatic: no lymphadenopathy noted Resp normal respiratory effort, no retractions and no use of accessory muscles Cardio regular rate GI soft to palpation, non-tender and non-distended Palpation: other Other Details: fundus firm Extremity normal to inspection and no clubbing, cyanosis or edema Skin no rashes or lesions noted Neuro no focal motor deficits and no sensory deficits noted Psych mental status grossly normal, affect normal and speech normal Assessment & Plan (1) Spontaneous vaginal delivery: PLAN: s/p PPD # 1 1. routine post delivery care 2. breast feeding- support given 3. rh positive 4. rubella immune
[2021-01-22] MEDS: Ibuprofen 600 MG Tablet PO ×2 (09:41→17:27)
[2021-01-22] MEDS: Pantoprazole Sodium 40 MG Tablet PO (09:41)
[2021-01-22 11:01] VITALS: BP 122/61; PULSE 62; RESP 18; TEMP 36.7; O2SAT 97
--- NOTE | 2021-01-22 12:00 | CASEMGMT ---
Social Work Assessment Labor and Delivery Unit Patient Address: [facility] [address], [place] [id number] Phone number: [phone] Date of Referral: 01/22/2021 Time of Referral: 0323; 1035 Referred By: Dr. Hoffman Date of Intervention: 01/22/2021 Time of Intervention: 1200 Reason for Referral: Maternal history of substance abuse, anxiety, depression.; PHQ-9 score of 14 History obtained from: Medical records and mother of baby (MOB) Mireille Adams. Father of baby (FOB) Balwinder Guerrero present for part of conversation. Household composition: MOB and FOB report to have an apartment, which they report is safe and adequate. MOB and FOB have been living in this home since about July or August 2020. Patient's parent/guardian status: MOB is a 20-year-old single -Iraqi female in the father is a 23-year-old single male, involved for the last 3 years. During private conversation with the MOB, MOB denies any domestic violence with the FOB. is the first child for both. is to be named Radha AdamsJuarezKike. Medical History: MOB is 1, para 0 now 1 after delivery Radha. care started at 10 weeks gestation. Maternal history of PCOS. Infant born on 02[birth year]10/2023. Weight 6 pounds 11 ounces. Apgars 7 and 9 at 1 and 5 minutes of life respectively. Educational Status: MOB with a high school education. Denies any issues with reading, writing, reading comprehension. Financial Status: MOB was working at [employer] throughout the and then left to look at a private in-home daycare. Plans to stay at home for a while in this timeframe. FOB reports to work at [employer] on first shift. Supplies: MOB and FOB reported to have all needed supplies for the infant including a bassinet and pack in play, car seat, clothing, diapers, wipes. MOB is planning to breast-feed. Childcare/Caregiver(s): MOB plans to be primary caregiver, with help from the FOB. Transportation: MOB drives and reports to have adequate transportation. FOB does not drive. Programs/Agencies Involved: MOB has medical through job and family services and food card. Active with [facility]. Verbally agrees to a help me grow referral. Worked with the care center during . History of counseling at [facility]. Children Services/Legal Issues: MOB denies any legal issues for self or the FOB. Denies children services history. Behavioral Health Issues: Mental Health History: MOB with a history of anxiety and depression. MOB reports to have a history of suicidal tendencies. MOB reports the suicidal tendencies were history of self injury with 1 episode of cutting with the intention of dying. MOB reports this was in 2020, prior to . MOB reports the FOB interrupted this attempt. MOB denies any type of suicidal ideation, planning, intent, or self injury during this . MOB has a history of being on Zoloft, but reports did not like this. History of trialing another medication but cannot remember the name. The medications were prescribed by [facility] primary care physician. MOB did seek out counseling through [facility] in 2019. Currently the MOB PHQ-9 is a score of 14 which falls into the moderate range of depression. Substance Use History: MOB reports alcohol usage at the beginning of , prior to knowledge. MOB with history of marijuana use but reports to have quit upon finding out about . When asked about the later positive drug screen MOB reports this was due to a contact high the MOB received when in a car with people who were smoking marijuana and all of the windows were up. MOB denies any other drug use history including heroin, meth, cocaine, or any type of pills. Does not smoke tobacco. Family History: MOB reports history of addiction in her family. Reports an uncle, a grandparent, and some cousins. FOB endorsed a history of depression for himself, and also marijuana use. Drug Screens: Maternal drug screen positive on 07/06/2020 and then at 27 weeks gestation on 10/23/2020. Negative drug screen on 01/20/2021. Baby's urine drug screen is negative. Meconium is pending. Family/Social Stressors: not planned but also not prevented. MOB reports intention to get back on control and when she went for an appointment found out she was . MOB reports for most of 2019 she and the FOB were homeless, living in a car. During private Conversation with the MOB, the MOB shared that FOB's father and FOB's brother both have schizophrenia, and made comments that sometimes is worried about the FOB's mental health. MOB reports that she and the FOB agreed they would both stop smoking marijuana, but that this is something the FOB continued which was bothersome to the MOB. when having conversation about depression and anxiety with both parents present, the FOB indicated that he has been having some depression. Reviewed with the FOB, and signs and symptoms of depression. FOB endorsed having 75% of what this television script writer listed. Support Systems: MOB reports that her mother and other people on her side of the family are supportive. FOB is a support. MOB and FOB both report that the FOB side of the family does not like them. Depression/Shaken Baby/Safe Sleeping reviewed safe sleeping with both of the parents, as well as shaken baby prevention. Educated to mood and anxiety disorders, risk factors, and importance of seeking out help and support. Educated that both mothers and fathers can experience mood and anxiety issues. ASSESSMENT: Met with the MOB and FOB in the room together, and then along with the MOB. MOB and FOB were close pleasant, cooperative, and engaged in conversation. The FOB was a bit more quiet, appearing somewhat hesitant to speak up at times, but smiled frequently and sometimes laughed slightly. FOB was able to give appropriate responses when he verbally engaged in conversation. MOB alert, oriented, with good eye contact. Affect appropriate to content. MOB voiced that she has been concerned about depression due to history of depression and suicidal tendencies. Talked with both parents about mental health follow-up, and both verbally agreed to have social work assist with getting intake appointments at the counseling center. This television script writer did offer a list of choices and options, but both agreed to go with the counseling center. MOB agrees to help me grow referral for added support. Reports to have needed baby supplies and that currently housing is adequate. The FOB will be off of work for a short time to help at home, and then the MOB mother will be available to help as needed. Discussed MOB PHQ-9 privately and MOB confirms agreement to seek out counseling again. MOB admits that motivation was low prior to delivery, but now feels motivated and more energy to take care of the baby. MOB reports to feel a positive connection towards the baby. MOB slept on top of a body pillow laying on top of the MOB'S bed for the duration of social work visit. Talked with the MOB about need to notify children services regarding substance exposed in utero. Offered MOB time to answer questions. Supportive listening offered. Safe Plan of Care for related to substance use: Talked with the MOB and FOB about not providing breast milk if MOB is going to use marijuana. MOB expressed understanding, and reports intent to breast-feed at this time and to abstain from marijuana usage. MOB reports she has spoken to her mother about possible use of edibles in the future, reporting belief that would be able to use edibles and still parent the . This television script writer educated the parents that edibles often have high concentrations of THC, so this would be something to strongly consider when factoring in the care of the child. MOB and FOB both report that any smoking of marijuana would be done outside of the home and not in front of the child. FOB reports his friends will not be coming over if high. FOB also reports that if one parent is using marijuana the other one would not be using that much. This television script writer reinforced that they should be at least 1 sober parent around, if in fact the parents decide to continue using marijuana. PLAN: Social work to follow-up with a call to children services and also help to arrange the parents with mental health intakes. Plan for help me grow referral. -GINETTE Strickland MSW *Information documented in this assessment generated with [employer]*
[2021-01-22 16:43] VITALS: BP 116/63; PULSE 70; RESP 18; TEMP 36.4; O2SAT 97
--- NOTE | 2021-01-22 19:30 | CASEMGMT ---
Social Work Labor and Delivery Unit Called the counseling center of [facility]. With both the mother of baby (MOB) and father of baby (FOB) permission this health science writer obtained mental health intake appointments. MOB is set up with an appointment for 02/10/2021 at 11 AM with Anastacia Morillo and the FOB is set up with Jair Montiel for 02/18/2021 at 1500. Typed information out on paper for both parents. Met with the MOB and FOB in the room. Provided a [facility] resource list, packet on mood and anxiety disorders, handouts on safe sleeping and shaken baby prevention, pamphlet on help me grow, and handouts about mental health follow-ups. Information provided on [facility] behavioral health department and reviewed that both parents could access this program, although not at the same time. Call to [facility] services and spoke with Bianca in the intake department ([phone], extension [phone]). 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 Parents with homelessness in 2019, with housing secured in 2020. Strengths reported in the parents are both agreeable to mental health follow-up and also a referral to help me grow. Brief maternal and infant histories provided. Referral to be screened in for investigation. Help me grow referral submitted via the [facility] secure online with the system. Plan-MOB and infant will discharge home when ready. [facility] will be following up with this family in the community. MOB and FOB both have mental health follow-ups set. Help me grow referral made. Will monitor for meconium drug screen results. -MAU Strickland, TRIM INSTALLER *Documentation generated via the [employer] system.*
[2021-01-22 20:25] VITALS: BP 129/55; PULSE 73; RESP 18; TEMP 36.3
--- NOTE | 2021-02-09 12:15 | CASEMGMT ---
Social Work Labor and Delivery Unit Baby's meconium drug screen results are back. Called [facility] services and spoke with Faviola Michael at [phone] extension [phone] to update. Refer to baby's chart for further details. No further social security assessor requested or indicated. -MAU Strickland, ROPING TENDER
== END 2021-01-22 22:00 | disposition home or self-care (01) | DRG 560 ==
LOC: WP 16:18 → WPOUT 01-21 10:30
PROVIDERS: Admitting Provider Obstetrics & Gynecology; PCP Family Medicine; Visit Provider Obstetrics & Gynecology
DX: O36.8130 Decreased fetal movements, third trimester, not applicable or unspecified (principal); O99.213 Obesity complicating pregnancy, third trimester; E66.9 Obesity, unspecified; Z3A.40 40 weeks gestation of pregnancy; Z37.0 Single live birth; K21.9 Gastro-esophageal reflux disease without esophagitis; O99.62 Diseases of the digestive system complicating childbirth; O99.824 Streptococcus B carrier state complicating childbirth; O70.0 First degree perineal laceration during delivery
CPT/HCPCS: 36415; 59025; 59050; 76819; 80307; 82565; 82570; 84112; 84156; 84450; 84460; 84550; 85027; 86850; 86900; 86901; 87426; 99218; J7120; A4216; G0378; J2405

== ENCOUNTER 2021-02-07 07:07 | Emergency (ER) | payer BC, MEDICAID, SELFPAY ==
[2021-01-20 15:02] VITALS: BMI 54.8
[2021-02-07 07:08] VITALS: BP 138/83; PULSE 75; RESP 16; TEMP 36.3; O2SAT 100; BMI 52.0
--- NOTE | 2021-02-07 07:24 | US_ITS ---
STUDY: ABDOMINAL ULTRASOUND - RIGHT UPPER QUADRANT REASON FOR VISIT: Female, 20 years old RUQ pain TECHNIQUE: Ultrasound evaluation of the right upper quadrant was performed with real-time and static law-scale imaging. TECHNICAL QUALITY: Adequate. COMPARISON: None. FINDINGS: Liver: The liver measures 15.6 cm. There is normal echogenicity of the liver. The bile ducts are within normal limits. There is hepatic color flow. The direction of portal flow is hepatopetal. There is no demonstrated mass lesion. Gallbladder: Normal distended gallbladder. The gallbladder wall measures 2 mm. There is a negative sonographic Baxter''s sign. There is no pericholecystic fluid. There are multiple echogenic structures within the gallbladder, consistent with multiple gallstones. Common Bile Duct (C.B.D.): The common bile duct measures 2 mm. Pancreas: Normal size of the head, body and tail of the pancreas. There is normal echogenicity of the pancreas. There is no demonstrated pancreatic mass or cyst. Right Kidney: Normal size of the right kidney. The right kidney measures 12.2 cm. Normal renal cortex. The right cortex measures 1.2 cm. There is no demonstrated renal mass or cyst. There is no right hydronephrosis. US/Gallbladder IMPRESSION: Cholelithiasis. Electronically Signed: Diego Peck MD at 9:54 EDT Tel , Service support ,
--- NOTE | 2021-02-07 07:25 | EKG12_ITS ---
Test Reason : EPIGASTRIC PAIN Blood Pressure : / mmHG Vent. Rate : 068 BPM Atrial Rate : 068 BPM P-R Int : 126 ms QRS Dur : 088 ms QT Int : 424 ms P-R-T Axes : 025 005 011 degrees QTc Int : 450 ms Normal sinus rhythm with sinus arrhythmia Normal ECG Confirmed by MAGAN ANAND, GREGORY ([id number]), telegraph editor ALANA SEARS ([id number]) on 02/09/2021 9:43:04 AM Referred By: DEYSI Confirmed By:GREGORY CARRERO MD
--- NOTE | 2021-02-07 07:26 | EDS_ITS ---
HPI History of Present Illness Chief Complaint: Chest Other Detail of Chief Complaint: Upper abdominal pain Informant: patient Onset/Context/Timing Onset: Today Current Severity: Mild Maximum Severity: Moderate Narrative Narrative: Patient reports waking at 3 AM this morning with bilateral lower rib pain. She states that the pressure squeezing sensation in her lower ribs. She has had this occur previously. She states typically she will vomit and have a bowel movement and then the pain resolves. She tried that this morning without any improvement. Last episode was approximately 8 months ago. Patient is currently 2 weeks . She denies pain radiating up into the upper chest or shortness of breath. [facility] Medical History Anemia Anxiety Chronic eczema Chronic GERD Depression Gestational HTN Headache Spontaneous vaginal delivery Home Medications omeprazole 40 mg capsule,delayed release 40 mg PO DAILY 06/23/20 [History Last Taken 01/13/21] vitamin#30 30 mg iron-10 mg iron-folic acid 1 mg-omg3 capsule 1 cap PO DAILY 07/28/20 [History Last Taken 01/18/21] Allergy/AdvReac Type Severity Reaction Status Date / Time amoxicillin [From Augmentin] AdvReac Swelling Verified 02/07/21 07:08 clavulanic acid AdvReac Swelling Verified 02/07/21 07:08 [From Augmentin] Family History Mother PCOS (polycystic ovarian syndrome) Surgical History History of tonsillectomy and adenoidectomy Pilonidal cyst Social History adopted: No household members: significant other housing: house current occupational status: employed current occupation: [employer] pets and animals: Yes sexually active: No Smoking Status: Never smoker second hand exposure: Yes alcohol intake: current details: Not while substance use type: former substance user and marijuana caffeine: Yes frequency: 1-2 times per week seatbelt use: always do you feel safe at home: Yes additional social history: BF: Balwinder ([employer]) ROS ROS ED Constitutional Constitutional ED: Denies chills or fever(s) Eyes Eyes: Denies change in vision ENT ENT ED: Denies sore throat Cardiovascular Cardiovascular: Denies chest pain Respiratory/Chest Respiratory/Chest: Denies cough or dyspnea Gastrointestinal Gastrointestinal: Reports abdominal pain; Denies diarrhea, nausea or vomiting Genitourinary Genitourinary ED: Denies dysuria Musculoskeletal Musculoskeletal: Denies back pain Integumentary Denies rash Neurologic Neurologic: Denies headache(s) or weakness Psychiatric Psychiatric: Denies anxiety or depression Endocrine Endocrinology: Denies polydipsia or polyuria Allergic/Immunologic Allergic/Immunologic ED: Denies urticaria EXAM Physical Exam Const Vital Signs: 02/07/21 07:08 02/07/21 09:46 Temperature 97.4 F L Temperature Source Temporal Pulse Rate 75 61 Respiratory Rate 16 25 H Blood Pressure 138/83 H 132/68 H Blood Pressure Mean 101 89 Pulse Ox 100 99 Oxygen Delivery Method Room Air Room Air Positive well nourished and well developed General Appearance ED: well developed HEENT Reports normocephalic and head/scalp atraumatic Eyes PERRL and EOMs intact bilaterally Neck supple Chest Wall inspection of chest normal and palpation of chest normal Resp normal respiratory effort and clear to auscultation bilaterally Cardio regular rate and regular rhythm GI Auscultation: hypoactive bowel sounds Palpation: soft and tender RUQ Extremity normal to inspection Neuro oriented x3 and no sensory deficits noted Sensorium / Orientation: alert Motor Exam: strength 5/5 throughout Psych mental status grossly normal Skin no rashes or lesions noted MDM MDM MDM Narrative Medical decision making narrative: Patient is given dose of morphine and Zofran for pain. Labs are obtained. Right upper quadrant ultrasound is ordered. Lab Data Attestation: I reviewed the patient's lab results. Labs: Laboratory Results - last 24 hr 02/07/21 02/07/21 07:20 07:20 WBC 10.8 RBC 4.59 Hgb 12.2 Hct 39.5 MCV 86.1 MCH 26.6 L MCHC 30.9 L RDW Std Deviation 44.3 H RDW Coeff of Emerson 14.2 Plt Count 411 MPV 9.5 Immature Gran % (Auto) 0.400 Neut % (Auto) 59.5 Lymph % (Auto) 28.2 Nicollet % (Auto) 6.4 Eos % (Auto) 5.1 H Baso % (Auto) 0.4 Absolute Neuts (auto) 6.4 Absolute Lymphs (auto) 3.05 Nucleated RBC % 0 Sodium 140 Potassium 3.6 Chloride 108 H Carbon Dioxide 28.0 Anion Gap 4 L BUN 13 Creatinine 0.84 Estim Creat Clear Calc 79.27 Est GFR (MDRD) Af Amer 108 Est GFR (MDRD) Non-Af 89 BUN/Creatinine Ratio 15.4 Glucose 83 Calcium 8.6 Total Bilirubin 0.20 Direct Bilirubin < 0.05 AST 20 ALT 34 Alkaline Phosphatase 111 Total Protein 7.5 Albumin 3.0 L Globulin 4.5 H Lipase 83 Radiography Diagnostic Testing: Radiology Impression Gallbladder Ultrasound 02/07/21 07:24 IMPRESSION: Cholelithiasis. Electronically Signed: Diego Peck MD at 9:54 EDT Tel , Service support , EKG Initial EKG: Attestation: I personally reviewed and interpreted this EKG as follows: Interpretation: Sinus Rhythm (Sinus at 68 with no acute ischemia.) Treatment and Re-Evaluation Comments:: On repeat evaluation patient does feel improved. Test results are discussed with her and significant other at bedside. Labs are unremarkable at this time. She does have evidence of cholelithiasis but no evidence of acute cholecystitis. I did recommend patient follow-up with a surgeon as an outpatient for elective gallbladder surgery. She voices understanding and agreement. She will be referred to Dr. Blanco whom she has seen in the past. Discharge Plan Triage Chief Complaint: Chest Other ED Provider: Amalia Rausch Dx/Rx/DC Orders Clinical Impression: Cholelithiasis Instructions: ED Gallstones with Biliary Colic Prescriptions: No Action omeprazole 40 mg capsule,delayed release(DR/EC) 40 mg PO DAILY RF: 0 vitamin#30 30 mg iron-10 mg iron-folic acid 1 mg-omg3 capsule 30 mg iron-10 mg iron-1 mg capsule 1 cap PO DAILY RF: 0 Primary Care Provider: Ramone Joseph Referrals: Jose Blanco MD [STAFF PHYSICIAN] - As soon as possible Ramone Joseph MD [Primary Care Provider] - Disposition Disposition: Home, Self Care
[2021-02-07 07:36] LABS: Absolute Lymphocyte Count 3.05 X10^3/uL (0.83-4.51); Absolute Neutrophil Count 6.4 X10^3/uL (2.0-7.7); Basophil# 0.04 X10^3/uL; Basophil% 0.4 % (0-1); Eosinophil# 0.55 X10^3/uL; Eosinophils% 5.1 % (0-5); Hematocrit 39.5 % (37-47); Hemoglobin 12.2 g/dL (12.0-15.0); Lymphocyte # 3.05 X10^3/ul (0.83-4.51); Lymphocyte % 28.2 % (19-41); Mean Corp Hgb Conc 30.9 g/dL (32-36); Mean Corpuscular Hgb 26.6 pg (27.0-32.0); Mean Corpuscular Volume 86.1 fL (81-99); Mean Platelet Vol. 9.5 fl (6.2-12.0); Monocyte# 0.69 X10^3/uL; Monocyte% 6.4 % (0-10); NRBC Flagged by Analyzer 0 % (0-5); Neutrophil # 6.43 X10^3/uL (2.7-7.7); Neutrophil % 59.5 % (47-70); Platelet Count 411 K/mm3 (150-450); RBC Distribution Width CV 14.2 % (11.6-14.6); RBC Distribution Width SD 44.3 fl (35.1-43.9); Red Blood Count 4.59 M/mm3 (4.2-5.4); White Blood Count 10.8 K/mm3 (4.4-11.0)
[2021-02-07] MEDS: Morphine 4 MG/ML Syringe IV (07:37)
[2021-02-07] MEDS: Ondansetron 4 MG/2 ML Vial IV (07:37)
[2021-02-07] MEDS: 0.9% Normal Saline 1,000 ML 150 ML IV (07:38)
[2021-02-07 07:58] LABS: AST(SGOT) 20 U/L (15-37); Alanine Aminotransfer ALT/SGPT 34 U/L (13-56); Alkaline Phosphatase 111 U/L (45-117); Anion Gap 4 (5-15); BUN 13 mg/dL (7-18); BUN/Creat Ratio 15.4 RATIO (10-20); Bilirubin, Direct < 0.05 mg/dL (0.00-0.30); Calcium,Total 8.6 mg/dL (8.5-10.1); Chloride 108 mmol/L (98-107); Creatinine, Serum 0.84 mg/dL (0.55-1.02); EST Glomerular Filtration Rate 89 mL/min (>60); Est Glom Filt Rate - Afr Amer 108 mL/min (>60); Estimated Creatinine Clearance 79.27 ml/min; Globulin 4.5 g/dL (2.2-4.2); Glucose 83 mg/dL (74-106); Lipase 83 U/L (73-393); Potassium 3.6 mmol/L (3.5-5.1); Protein, Total 7.5 g/dL (6.4-8.2); Sodium Level 140 mmol/L (136-145)
[2021-02-07 09:46] VITALS: BP 132/68; PULSE 61; RESP 25; O2SAT 99
[2021-02-07 10:57] VITALS: BP 141/75; PULSE 61; RESP 16; O2SAT 99
== END 2021-02-07 11:05 | disposition home or self-care (01) ==
PROVIDERS: Emergency Provider Emergency Medicine; PCP Family Medicine
DX: K80.20 Calculus of gallbladder without cholecystitis without obstruction (principal); K21.9 Gastro-esophageal reflux disease without esophagitis
CPT/HCPCS: 76705; 80048; 80076; 83690; 85025; 93005; 96361; 96374; 96375; 99284; J7030; A4216; J2405

== ENCOUNTER 2021-03-23 10:05 | Day surgery (SDC) | payer MEDICAID, SELFPAY ==
--- NOTE | 2021-03-19 12:18 | EKG12_ITS ---
Test Reason : PRE OP Blood Pressure : / mmHG Vent. Rate : 074 BPM Atrial Rate : 074 BPM P-R Int : 124 ms QRS Dur : 090 ms QT Int : 394 ms P-R-T Axes : 028 011 020 degrees QTc Int : 437 ms Normal sinus rhythm Normal ECG Confirmed by TAHIR ANAND, SIRISHA ([id number]), story editor ALANA SEARS ([id number]) on 03/23/2021 8:26:11 AM Referred By: LLOYD Confirmed By:ESTELA HARO MD
[2021-03-23] VITALS (9 sets, daily range): BP systolic 114–144; BP diastolic 31–82; PULSE 57–75; RESP 16; TEMP 36.2–36.5; O2SAT 95–100; BMI 49.2
--- NOTE | 2021-03-23 08:10 | PCM.HP.BLA ---
History and Physical Date of Admission: 03/23/21 HISTORY AND PHYSICAL Mireille Adams 2000 REFERRING PHYSICIAN: Lianet Ann APRN.C* CHIEF COMPLAINT: Consult (Gallstones) HPI: The patient is a 20 year old female who presents with RUQ abdominal pain and findings of gallstones. She states that she has noted symptoms last year Meghna She has had several episodes of pain since. Last one recently in ED [facility] 02/07/2021 - afebrile, normal WBC, normal LFTs, noted 10/ pain RUQ abdominal US [facility] - 02/07/2021 - gallbladder wall measures 2mm. There is a negative sonographic Baxter's signs. There is no pericholecystic fluid. There are multiple echogenic structures within the gallbladder, consistent with multiple gallstones At present, she denies abdominal pain. PAST MEDICAL HISTORY Diagnosis Date ? Atopic eczema 01/09/2011 ? Chronic sinusitis 06/16/2017 ? Current severe episode of major depressive disorder without psychotic features without prior episode ([facility]) 01/24/2020 ? Current use of proton pump inhibitor 03/23/2018 ? Environmental and seasonal allergies Dr Chato Montes - allergy shots ? ROMY (generalized anxiety disorder) 01/24/2020 ? GERD without esophagitis 09/14/2017 ? Herpes simplex virus type 1 (HSV-1) dermatitis 01/24/2020 ? Iron deficiency anemia 05/10/2018 ? Leukocytosis 03/25/2018 Seen by Hematology and no further w/u needed 04/2018 ? Lichenification and lichen simplex chronicus 12/29/2011 ? Macromastia 08/10/2017 Added automatically from request for surgery [id number] ? Marijuana abuse 07/19/2020 Labs: 07/06/2020 ? Menorrhagia with irregular cycle 02/19/2015 ? Menstrual periods, abnormal Age 11 ? Morbid (severe) obesity due to excess calories (HCC) 11/19/2015 ? Multiple allergies 05/04/2017 ? PMH - PAST MEDICAL HISTORY OF 01/20/10 normal color vision PAST SURGICAL HISTORY Procedure Laterality Date ? PCHG EXCISE PILONIDAL CYST, COMPLICATED ? REMOVAL ADENOIDS,PRIMARY,<12 Y/O 2004 Adenoidectomy ? REMOVAL OF TONSILS,<12 Y/O 2004 Tonsillectomy Current Outpatient Medications Medication Sig ? valACYclovir (VALTREX) 500 mg tablet Take 1 tablet by mouth once daily. ? fluocinonide (LIDEX) 0.05 % ointment Apply to affected resistant or more severe eczema dermatitis rash eruptions selectively of tops of feet, open areas of legs, arms, trunk: twice per day (bid) until clear (or up to 4-6 weeks or less and then stop or taper off to bland emollient cream (eg. CeraVe cream)) as able. AVOID use on face, eyes and eyelids, and deep fold areas. ? omeprazole (PRILOSEC) 20 mg capsule Take 1 capsule by mouth daily before breakfast. 1/2 hr before meal. ? hydrocortisone 2.5 % cream Apply to eczema rash and/or itching skin areas bid to qid until clear and then taper as able to qday to alternate day or less and try to taper off as able when clear; AVOID eyes and eyelids. ? propranolol (INDERAL) 10 mg tablet Take 1 tablet by mouth once daily. ? SUMAtriptan (IMITREX) 100 mg tablet One table by mouth with onset of headache. Can repeat in and hour but only 2 tabs in 24 hrs. ? MULTI-VITAMIN ORAL Take by mouth. ALLERGIES: Augmentin [Amoxicillin-Pot Clavulanate] and Seasonal Allergies PERSONAL HISTORY: Social History Tobacco Use ? Smoking status: Never Smoker ? Smokeless tobacco: Never Used ? Tobacco comment: erika smokes outside - sees twice a week Substance Use Topics ? Alcohol use: No ? Drug use: No FAMILY HISTORY Problem Relation Age of Onset ? Psychiatry Mother depression and anxiety ? Heart Maternal Grandmother mggm ? Lipids Maternal Grandmother ? Hypertension Paternal Grandmother ? Hypertension Maternal Grandfather ? Lipids Maternal Grandfather ? Diabetes Paternal Grandfather adult onset ? Heart Maternal Aunt hole in heart per mom ? Thyroid No Family History The review of systems data was entered by the nurse and reviewed by vt Nursing Notes: Janette Da Silva LPN 02/10/2021 2:40 PM Signed REVIEW OF SYSTEMS: General: The patient denies fatigue, denies weight loss, denies weight gain, denies feeling hot, and denies feelings of cold. Eyes: The patient denies glaucoma, denies eye injury/surgery, wears glasses or contacts. Ear/Nose/Throat: The patient NOTES allergies, denies hayfever, denies ear infections, and denies bloody noses. Cardiovascular: The patient denies chest pain, denies heart disease, denies high blood pressure,denies cardiac stent, denies prior heart attack, denies irregular heart beat, denies high cholesterol, denies poor circulation, denies heart failure, other cardiac issues, denies claudication, denies cold feet, denies peripheral arterial stent. Respiratory: The patient denies tuberculosis, denies pneumonia, denies frequent cough, denies pulmonary embolism, denies shortness of breath, and denies coughing up blood. Gastrointestinal: The patient denies difficulty swallowing, denies acid reflux, denies ulcers, denies vomiting, denies jaundice/hepatitis, denies gallbladder problems, denies black or tarry stools, denies hemorrhoids, denies bleeding from rectum, denies diverticulitis, denies constipation, denies diarrhea, denies loss of stool control, and denies hernias. Kidney/Bladder: The patient denies kidney stones, denies urine infections, and denies bloody urine. Skin: The patient denies a history of skin cancer, denies bleeding/changing moles, and NOTES a history of skin rash. Neurologic: The patient denies a history of epilepsy/convulsions, denies headaches, denies head/spinal injuries, and denies stroke/TIA. Psychiatric: The patient denies psychiatric medications, denies depression, and denies voices, denies substance abuse. Endocrine: The patient denies thyroid disorders, denies diabetes, and denies hormonal problems. Hematologic: The patient denies a history of bruising, denies bleeding, and denies anemia, denies blood clots. Infections: The patient denies a history of measles and mumps, denies rheumatic fever, and denies sexually transmitted diseases. Musculoskeletal: The patient denies back pain/injury, NOTES back problems, denies sciatica, denies knee/foot trouble, denies arthritis, or denies gout. When was patient's last Mammogram screening? N/A Last Colonoscopy: N/A [facility] PH[facility]ICAL EXAMINATION: General: The patient is 20 year old female, well nourished, well hydrated in no acute distress. The patient is oriented to time, place, and person. VITALS: Blood pressure 124/68, pulse 117, temperature 36.1 ?C (97 ?F), height 157.5 cm (5' 2), weight 125.6 kg (277 lb), last menstrual period 07/17/2019, SpO2 98 %. Body mass index is 50.66 kg/m?. Head ? Normocephalic. EOM intact with sclera clear and no icterus noted. Wearing glasses Neck - supple with no jugular venous distention noted. Trachea is midline. Lungs ? clear to auscultation. Normal breath sounds. No rales/rhonchi/wheezing noted. No labored breathing noted, such as retractions. No cough heard. Heart ? normal heart sounds. No rubs/clicks/murmurs noted. Regular rate. Abdomen ? soft and benign. Non tender. Normal bowel sounds. Difficult to determine if any masses or organomegaly due to body habitus. Extremities ? no calf tenderness noted. No pitting edema noted. Skin ? normal skin integrity. Neurological ? gait normal, no focal deficits noted. Psych ? calm and appropriate RADIOLOGIC STUDIES: As Noted IMPRESSION: RUQ abdominal pain, cholelithiasis PLAN: I have discussed the above with the patient and a male friend I have offered laparoscopic cholecystectomy, possible cholangiograms. I have explained the procedure to the patient. I have counseled the patient as to the risks of the procedure, including but not limited to: infection, bleeding, injury to any blood vessels/nerves, scar tissue, injury to any intrabdominal organs, injury to bowel/bladder, injury to the common bile duct/biliary tree, bile leakage, intraabdominal abscess/bleeding, hernias at incisional sites, wound infections, complications of anesthesia, etc. ? the patient understands. The patient wishes to proceed. I have answered all questions to the patient?s satisfaction and the patient has no further questions. . Diagnoses: (E66.01) Morbid obesity (HCC) (primary encounter diagnosis) (K80.20) Gall stones Return to Clinic: The patient is instructed to follow-up with me after the procedure. Ashley Pemberton MD
[2021-03-23] MEDS: Lactated Ringers 1,000 ML 75 ML IV (08:15)
[2021-03-23 10:36] LABS: Internal QC Validated? YES +Cl - CLEAR BKGD; Pregnancy, Urine Negative Negative
--- NOTE | 2021-03-23 12:00 | GALL_PTH ---
PATIENT: CODY QUEEN LOC: [facility] – [place], [place] U#:[id number] AGE/SX: 20 ROOM: RE03/23/[address]: Dr. Ashley Pemberton MD : 2000 BED: DIS: 03/23/2021 SPEC #: [id number] RECD: 03/23/21 15:40 STATUS: [facility] #: [id number] JENN: 03/23/21 12:[address]: Ashley Pemberton DEPT: SURGICAL PATHOLOGY RECD BY: Rosa Chambers ENTERED: 03/24/21 08:02 SP TYPE: DONNA LAND DR: Dr. Ramone Joseph MD Tissues: Gallbladder, NOS Procedures: Surgery Specimen Level III HEADER OPERATION: Cholelithiasis, RUQ pain PRE-OP DIAGNOSIS: Cholelithiasis, RUQ pain TISSUE SUBMITTED: Gallbladder MICROSCOPIC DIAGNOSIS Gallbladder, cholecystectomy: Chronic cholecystitis and cholelithiasis. AM:am 03/25/21 MICROSCOPIC DESCRIPTION Slides are reviewed. GROSS DESCRIPTION Received is one container labeled with the patient's name and designated gallbladder. The specimen consists of a gallbladder measuring 7 x 2 x2 cm. The external surface is smooth and glistening. Focally, it is granular, hemorrhagic and contains cautery artifact. The lumen of the gallbladder contains yellow-green mucoid bile and yellow calculi ranging in size from 0.1 to 0.6cm in greatest dimension. The mucosa is bile-stained and without any mass lesions. The gallbladder wall averages 0.1cm in thickness and is free of mass lesions. Stripping Shovel Oiler sections of the gallbladder and the cystic duct at margin of resection are submitted in one cassette. / AM:am 03/24/21 TC:3 CPT: 37438
--- NOTE | 2021-03-23 13:28 | PCM.OPRPT ---
Report of Operation Date of Procedure: 03/23/21 Pre-Operative Diagnosis: RUQ abdominal pain, cholelithiasis Post-Operative Diagnosis: cholelithiasis, chronic cholecystitis Surgery/Procedure Performed:: laparoscopic cholecystectomy Description of Surgical Findings:: fatty enlarged liver changes Surgeon: Ashley Pemberton Type of Anesthesia: General Anesthesiologist: Zonia Jurado Specimen's removed: gallbladder and contents Drains: none Estimated Blood Loss (mL): < 10 ml Fluids Replaced: 800 ml RL Description of Procedure: After informed consent was given, the patient was brought to the Operating Room. Appropriate time out protocol was followed. The patient was placed in the supine position. The patient was then placed under general endotracheal anesthesia by the anesthesia provider. The abdomen was then prepped with a sterile surgical skin preparation and sterile surgical drapes were placed. An area superior to the umbilical dimple was grasped with penetrating clamps and the skin and subcutaneous tissues were infiltrated with 1% xylocaine with epinephrine. A skin incision was then made with a 15 blade scalpel. The anterior abdominal wall was elevated and a Veress needle was carefully inserted into the intraabdominal cavity. It was checked to be in the proper position with a normal saline drop test. A CO2 pneumoperitoneum was then created. Once this was achieved, then the Veress needle was removed and an 11mm trocar was placed in its stead. A 10mm laparoscope was then inserted into the trocar and careful attention was directed to the intraabdominal contents. There was no evidence of injury to any intraabdominal organs from insertion of the Veress needle or the trocar. Under direct visualization, a 5mm subxiphoid trocar and two lateral 5mm right subcostal trocars were placed. The skin and subcutaneous tissues at these sites were infiltrated with local anesthetic with epinephrine prior to placement of these trocars. Attention was then directed to the right upper quadrant of the abdomen. The gallbladder was noted to be enlarged, with fatty infiltration changes and blunted liver edge. Graspers were placed in the lateral trocars to grasp the distal aspect of the gallbladder and direct it cephalad and to grasp the gallbladder at Marino?s pouch and direct it laterally. Dissection then began on the proximal gallbladder continuing down to the area of the triangle of Calot to bluntly dissect out the cystic duct. The neck of the gallbladder was identified and blunt dissection continued to dissect out a segment of the cystic duct. A clip was then placed on the neck of the gallbladder. Two clips were placed proximally and the cystic duct was then transected. The cystic artery was visualized and bluntly isolated and then two clips were placed proximally and one clip distally and then it was transected between the proximal and distal clips. The gallbladder was then from the liver bed using electrocautery. Once from the liver bed, it was brought out via the umbilical port in an Endobag. It was then forwarded to pathology for analysis. The liver bed was carefully examined. There was no evidence of bile leakage or bleeding. The cystic duct stump and cystic artery stump had their clips intact and there was no evidence of bile leakage or bleeding. The remainder of the abdomen was grossly normal. The CO2 was released and all trocars removed intact. The periumbilical fascia was approximated with a [id number] 0 vicryl suture. All skin incision were closed with 4-0 monocryl in a subdermal fashion. Cavilol and Steristrips were used to reinforce the skin closure. Sterile dressings were applied to all wounds. Sponge, needle and instrument count was verified and correct at time of skin closure. The patient was extubated and brought to the Recovery Room in stable condition. Complications none noted Admit VTE Documentation VTE Present on Admission: Yes VTE Mechan Device Prophylaxis: SCD's
[2021-03-23] MEDS: Lidocaine 1% /Epi 1:100 (20ml) 20 ML Vial (13:30)
--- NOTE | 2021-03-23 13:32 | DCINST_ITS ---
Discharge Instructions Follow Up Care Test Results: Test results from this visit will be discussed in further detail at your follow-up appointment, if applicable. Discharge Plan Admission Attending Provider: Ashley Pemberton Primary Care Provider: Ramone Joseph Instructions Additional Instructions / Restrictions: Recommended pain control regimen - May take 600 mg ibuprofen (Motrin) and then in 3-4 hours, may take 650 mg acetaminophen (Tylenol), then in 3-4 hours may take 600 mg ibuprofen, then in 3- 4 hours may take 650 mg acetaminophen and so on for 2-3 days May take narcotic pain medication for pain that is not controlled by above and at night for comfort through the night Leave dressings in place May shower, do not scrub in the areas of the dressings as they may unravel. Do not soak - no tub baths/swimming Ice applied to areas of discomfort may help No lifting/pushing/pulling greater than 20 pounds for a month. Regular diet as tolerated, drink plenty of fluids. Avoid carbonated beverages for a few days as this will cause abdominal bloating and thus discomfort after our surgery. Please call my office for an appointment to see me in 1-2 weeks. Office number is If any questions, please call my office at and ask the lcac radar operator/navigator for the general surgery nurses desk Discharge Orders/Prescriptions Prescriptions: New hydrocodone-acetaminophen 5-325 mg tablet 1 tab PO Q8H 5 Days Qty: 15 RF: 0 No Action omeprazole 40 mg capsule,delayed release(DR/EC) 40 mg PO DAILY RF: 0 vitamin#30 30 mg iron-10 mg iron-folic acid 1 mg-omg3 capsule 30 mg iron-10 mg iron-1 mg capsule 1 cap PO DAILY RF: 0 medroxyprogesterone [Depo-Provera] 150 mg/mL suspension 150 mg IM [id number] Qty: 1 RF: 4 phentermine [Adipex-P] 37.5 mg Tablet 37.5 mg PO DAILY RF: 0 Referrals / Follow Up: Ramone Joseph MD [Primary Care Provider] - Disposition Disposition (needs filled in before D/C Order can be placed): Home, Self Care
== END 2021-03-23 16:04 | disposition home or self-care (01) ==
LOC: SDC 10:05 → AC 10:07
PROVIDERS: Anesthesiology; PCP Family Medicine; Referring Provider Surgery; Visit Provider Surgery
PROC: (CPT 47610; principal; 2021-03-23 11:40)
DX: K80.10 Calculus of gallbladder with chronic cholecystitis without obstruction (principal); K76.0 Fatty (change of) liver, not elsewhere classified; K21.9 Gastro-esophageal reflux disease without esophagitis; E66.01 Morbid (severe) obesity due to excess calories; Z68.43 Body mass index [BMI] 50.0-59.9, adult
CPT/HCPCS: 47562; 81025; 87426; 88304; 93005; C9803; J7050; J7120; J2405

== ENCOUNTER 2021-07-11 13:29 | Emergency (ER) | payer MEDICAID, SELFPAY ==
[2021-07-11 13:30] VITALS: BP 135/79; PULSE 82; RESP 16; TEMP 36.1; BMI 51.2
--- NOTE | 2021-07-11 14:46 | EX.ED.DYSGE1 ---
HPI History of Present Illness Chief Complaint: Ear Problem Informant: patient Narrative Narrative: 20-year-old female presenting to the emergency department for right ear pain. Symptoms started this morning. She notes pressure in the ear and decreased hearing. She has had some mild rhinorrhea/congestion over the past couple days. No fever no drainage from the ear. [facility] Medical History Anemia Anxiety Chronic eczema Chronic GERD Depression Former smoker Gave to child recently Gestational HTN Headache Marijuana use Spontaneous vaginal delivery Home Medications omeprazole 40 mg capsule,delayed release 40 mg PO DAILY 06/23/20 [History Last Taken 02/23/21] vitamin#30 30 mg iron-10 mg iron-folic acid 1 mg-omg3 capsule 1 cap PO DAILY 07/28/20 [History Last Taken 02/23/21] medroxyprogesterone 150 mg/mL intramuscular suspension 150 mg IM [id number] #1 ml 03/03/21 [Rx Last Taken Unknown] phentermine [Adipex-P] 37.5 mg PO DAILY 03/16/21 [History Last Taken 03/16/21] hydrocodone-acetaminophen 1 tab PO Q8H 5 Days #15 tab 03/23/21 [Rx Last Taken Unknown] cefdinir 300 mg PO Q12H #20 cap 07/11/21 [Rx Last Taken Unknown] hydrocodone-acetaminophen 1 tab PO Q6H PRN PRN 3 Days #10 tablet 07/11/21 [Rx Last Taken Unknown] Allergy/AdvReac Type Severity Reaction Status Date / Time amoxicillin [From Augmentin] AdvReac Swelling Verified 07/11/21 13:30 clavulanic acid AdvReac Swelling Verified 07/11/21 13:30 [From Augmentin] Family History Mother PCOS (polycystic ovarian syndrome) Surgical History History of cholecystectomy History of tonsillectomy and adenoidectomy Pilonidal cyst Social History adopted: No household members: significant other housing: house current occupational status: employed current occupation: [employer] pets and animals: Yes sexually active: No Smoking Status: Former smoker second hand exposure: Yes alcohol intake: current details: Not while substance use type: former substance user and marijuana caffeine: Yes frequency: 1-2 times per week seatbelt use: always do you feel safe at home: Yes additional social history: BF: Balwinder ([employer]) ROS ROS ED Constitutional Constitutional ED: Denies chills or weight loss Eyes Eyes: Denies change in vision or diplopia ENT ENT ED: Reports ear pain, rhinorrhea and sore throat Cardiovascular Cardiovascular: Denies chest pain, orthopnea, palpitations or racing heartbeat Respiratory/Chest Respiratory/Chest: Denies cough, dyspnea or orthopnea Gastrointestinal Gastrointestinal: Denies abdominal pain, diarrhea, nausea or vomiting Genitourinary Genitourinary ED: Denies dysuria, hematuria or urinary frequency Musculoskeletal Musculoskeletal: Denies arthralgias or myalgias Integumentary Denies abscess or rash Neurologic Neurologic: Denies headache(s) or weakness Psychiatric Psychiatric: Denies anxiety, depression, suicidal ideation or suicidal thoughts Endocrine Endocrinology: Denies polydipsia, polyphagia or polyuria Allergic/Immunologic Allergic/Immunologic ED: Denies mouth swelling, tongue swelling or urticaria EXAM Physical Exam Const Vital Signs: 07/11/21 13:30 Temperature 96.9 F L Temperature Source Temporal Pulse Rate 82 Respiratory Rate 16 Blood Pressure 135/79 H Blood Pressure Mean 97 Positive well nourished and well developed General Appearance ED: well developed HEENT Reports normocephalic, head/scalp atraumatic and moist mucous membranes HEENT Narrative: Right tympanic membrane is erythematous and bulging with loss of landmarks. No evidence of perforation. Negative for trauma Eyes PERRL and EOMs intact bilaterally Neck no lymphadenopathy, supple and no JVD Resp normal respiratory effort and clear to auscultation bilaterally Cardio regular rate, regular rhythm and no murmurs GI normal to inspection, nondistended, normoactive bowel sounds and non-tender Palpation: soft Back/Spine no CVA tenderness and normal ROM Extremity normal to inspection General Extremety ED: Negative for edema General Extremity: Negative for edema Neuro oriented x3 and CN's II-XII intact bilaterally Sensorium / Orientation: alert Motor Exam: strength 5/5 throughout Psych mental status grossly normal Mood & Affect: Negative for depressed or tearful Skin no rashes or lesions noted and no wounds MDM MDM MDM Narrative Medical decision making narrative: Patient will be started on cefdinir. Return if worsening or concerns Discharge Plan Triage Chief Complaint: Ear Problem ED Provider: Jose Chauhan Dx/Rx/DC Orders Clinical Impression: Acute right otitis media Instructions: ED Otitis Media Antibiotic ... Prescriptions: New hydrocodone-acetaminophen [hydrocodone-acetaminophen] 1 TABLET tablet 1 tab PO Q6H PRN PRN (Reason: Pain) 3 Days Qty: 10 RF: 0 cefdinir 300 mg capsule 300 mg PO Q12H Qty: 20 RF: 0 No Action omeprazole 40 mg capsule,delayed release(DR/EC) 40 mg PO DAILY RF: 0 vitamin#30 30 mg iron-10 mg iron-folic acid 1 mg-omg3 capsule 30 mg iron-10 mg iron-1 mg capsule 1 cap PO DAILY RF: 0 medroxyprogesterone [Depo-Provera] 150 mg/mL suspension 150 mg IM [id number] Qty: 1 RF: 4 phentermine [Adipex-P] 37.5 mg Tablet 37.5 mg PO DAILY RF: 0 hydrocodone-acetaminophen 5-325 mg tablet 1 tab PO Q8H 5 Days Qty: 15 RF: 0 Primary Care Provider: Ramone Joseph Referrals: Ramone Joseph MD [Primary Care Provider] - As Needed Disposition Disposition: Home, Self Care Discharge Date/Time: 07/11/21 14:29
== END 2021-07-11 14:29 | disposition home or self-care (01) ==
PROVIDERS: Emergency Provider Emergency Medicine; PCP Family Medicine
DX: H66.91 Otitis media, unspecified, right ear (principal); K21.9 Gastro-esophageal reflux disease without esophagitis; Z79.899 Other long term (current) drug therapy; Z87.891 Personal history of nicotine dependence
CPT/HCPCS: 99282

== ENCOUNTER 2022-06-13 13:05 | Emergency (ER) | payer MEDICAID, SELFPAY ==
[2022-06-13 13:07] VITALS: BP 129/98; PULSE 99; RESP 14; TEMP 36.2; O2SAT 98; BMI 54.7
--- NOTE | 2022-06-13 14:07 | EX.ED.DYSGE1 ---
HPI <DAVID Sy - Last Filed: 06/13/22 16:46> History of Present Illness Chief Complaint: Nausea/Vomiting/Diarrhea Narrative Narrative: Patient presents today with nausea and vomiting that started around 5:30 AM this morning. She states she has been unable to keep food down due to the nausea and she has had several bouts of loose stool. She states she has some mild generalized abdominal pain. She has a history of a cholecystectomy but no other abdominal surgeries. She denies fever, hematemesis, blood in the stool, chest pain, shortness of breath, dysuria, and hematuria. PFSH <DAVID Sy - Last Filed: 06/13/22 16:46> [facility] Medical History Anemia Anxiety Chronic eczema Chronic GERD Depression Former smoker Gave to child recently Gestational HTN Headache Marijuana use Spontaneous vaginal delivery Home Medications omeprazole 40 mg capsule,delayed release 40 mg PO DAILY indigestion 06/23/20 [History Last Taken 06/12/22 08:00] ondansetron 4 mg disintegrating tablet 4 mg PO Q6H PRN nausea and vomiting #7 tabs 06/13/22 [Rx Last Taken Unknown] Allergy/AdvReac Type Severity Reaction Status Date / Time amoxicillin [From Augmentin] AdvReac Swelling Verified 06/13/22 14:06 clavulanic acid AdvReac Swelling Verified 06/13/22 14:06 [From Augmentin] Family History Mother PCOS (polycystic ovarian syndrome) Surgical History History of cholecystectomy History of tonsillectomy and adenoidectomy Pilonidal cyst Social History adopted: No household members: significant other housing: house current occupational status: employed current occupation: [employer] pets and animals: Yes sexually active: No Smoking Status: Former smoker second hand exposure: Yes alcohol intake: current details: Not while substance use type: former substance user and marijuana caffeine: Yes frequency: 1-2 times per week seatbelt use: always do you feel safe at home: Yes additional social history: BF: Balwinder ([employer]) ROS <DAVID Sy - Last Filed: 06/13/22 16:46> ROS ED Constitutional Constitutional ED: Denies chills, fever(s) or sweats Eyes Eyes: Denies blurry vision ENT ENT ED: Denies rhinorrhea or sore throat Cardiovascular Cardiovascular: Denies chest pain Respiratory/Chest Respiratory/Chest: Denies cough or dyspnea Gastrointestinal Gastrointestinal: Reports abdominal pain, diarrhea, nausea and vomiting; Denies constipation or melena Genitourinary Genitourinary ED: Denies dysuria, hematuria or urinary frequency Musculoskeletal Musculoskeletal: Denies back pain or myalgias Integumentary Denies Abrasions or rash Neurologic Neurologic: Denies headache(s) or weakness EXAM <DAVID Sy - Last Filed: 06/13/22 16:46> Physical Exam Const Vital Signs: 06/13/22 13:07 06/13/22 15:06 06/13/22 15:22 Temperature 97.1 F L 98.7 F 98.3 F Temperature Source Temporal Temporal Pulse Rate 99 94 74 Respiratory Rate 14 14 16 Blood Pressure 129/98 H 132/94 H 137/87 H Blood Pressure Mean 108 106 Pulse Ox 98 98 98 Oxygen Delivery Method Room Air Room Air Positive obese Nutritional Appearance: obese HEENT Reports moist mucous membranes Eyes PERRL and EOMs intact bilaterally Neck supple Resp normal respiratory effort and clear to auscultation bilaterally Cardio regular rate, regular rhythm and no murmurs GI normal to inspection, nondistended, normoactive bowel sounds and no masses; Negative for hepatosplenomegaly GI Narrative: Some tenderness to palpation in the epigastric region. Palpation: soft; Negative for guarding Back/Spine no CVA tenderness Extremity normal to inspection General Extremety ED: Negative for edema General Extremity: Negative for edema Neuro oriented x3 and no sensory deficits noted Sensorium / Orientation: alert Motor Exam: Negative for general weakness Psych mental status grossly normal Skin no rashes or lesions noted, no wounds and skin turgor normal <Dr. Kayden Iglesias MD - Last Filed: 06/13/22 14:59> Physical Exam Const Vital Signs: 06/13/22 13:07 06/13/22 15:06 06/13/22 15:22 Temperature 97.1 F L 98.7 F 98.3 F Temperature Source Temporal Temporal Pulse Rate 99 94 74 Respiratory Rate 14 14 16 Blood Pressure 129/98 H 132/94 H 137/87 H Blood Pressure Mean 108 106 Pulse Ox 98 98 98 Oxygen Delivery Method Room Air Room Air [facility] <DAVID Sy - Last Filed: 06/13/22 16:46> [facility] Narrative Medical decision making narrative: Patient was given fluids and Zofran. Upon reexamination patient was drinking coleman ruthie and felt much better. She was instructed to return if symptoms worsen. She was given a prescription for Zofran and has been advised to eat bland foods and to stay well-hydrated. I am comfortable with patient discharging home and patient is agreeable with plan. I have personally performed a face to face assessment of the patient and have reviewed the ISMAEL Note. I performed a substantive portion of the visit including all aspects of the following. My fontanez findings include: History: [21-year-old female no stated past medical history. Being evaluated with our physician assistant research scientist. Patient has had nausea vomiting diarrhea since about 530 this morning. Really no significant abdominal pain. No dysuria.] Exam: [Well-appearing 21-year-old female. Vital signs stable afebrile. Does not look septic or toxic. Does not look significantly dehydrated. H EENT exam unremarkable. Neck nontender. Lungs are clear. Heart regular rhythm. Abdomen soft nontender nondistended normal bowel sounds no peritoneal signs. Status postcholecystectomy. No obstruction. No right lower quadrant pain. Moving all 4 extremities. Calves are nontender no edema. Neurologically patient is awake and alert. Exam benign.] Medical Decision Making: [History exam consistent with a viral gastroenteritis. Patient treated the liter normal saline. Given IV Zofran. Currently she is drinking a coleman ruthie. Should be discharged home with a prescription for Zofran as needed. Fluids and rest.] <Dr. Kayden Iglesias MD - Last Filed: 06/13/22 14:59> [facility] Narrative Medical decision making narrative: I have personally performed a face to face assessment of the patient and have reviewed the ISMAEL Note. I performed a substantive portion of the visit including all aspects of the following. My fontanez findings include: History: [21-year-old female no stated past medical history. Being evaluated with our physician assistant research scientist. Patient has had nausea vomiting diarrhea since about 530 this morning. Really no significant abdominal pain. No dysuria.] Exam: [Well-appearing 21-year-old female. Vital signs stable afebrile. Does not look septic or toxic. Does not look significantly dehydrated. H EENT exam unremarkable. Neck nontender. Lungs are clear. Heart regular rhythm. Abdomen soft nontender nondistended normal bowel sounds no peritoneal signs. Status postcholecystectomy. No obstruction. No right lower quadrant pain. Moving all 4 extremities. Calves are nontender no edema. Neurologically patient is awake and alert. Exam benign.] Medical Decision Making: [History exam consistent with a viral gastroenteritis. Patient treated the liter normal saline. Given IV Zofran. Currently she is drinking a coleman ruthie. Should be discharged home with a prescription for Zofran as needed. Fluids and rest.] Discharge Plan Triage Chief Complaint: Nausea/Vomiting/Diarrhea ED Midlevel Provider: Faviola Brooks ED Provider: Kayden Iglesias Dx/Rx/DC Orders Clinical Impression: Nausea & vomiting, Viral gastroenteritis Instructions: ED Gastroenteritis, Viral (Adult) Prescriptions: New ondansetron 4 mg tablet,disintegrating 4 mg PO Q6H PRN (Reason: nausea and vomiting) Qty: 7 0RF No Action omeprazole 40 mg capsule,delayed release(DR/EC) 40 mg PO DAILY Stand Alone Forms: ED Work / School Excuse Primary Care Provider: Ramone Joseph Referrals: Ramone Joseph MD [Primary Care Provider] - 3-5 Days if not improving Activity Restrictions/Additional Instructions: Plenty of fluids and rest. Increase diet slowly as tolerated Zofran as needed for nausea. You can swallow it or let dissolve on your tongue. Follow-up with your doctor if not improving return if worse. Disposition Disposition: Home, Self Care Discharge Date/Time: 06/13/22 15:37
[2022-06-13] MEDS: 0.9% Normal Saline 1,000 ML 999 ML IV (14:30)
[2022-06-13] MEDS: Ondansetron 4 MG/2 ML Vial IV (14:30)
[2022-06-13 15:06] VITALS: BP 132/94; PULSE 94; RESP 14; TEMP 37.1; O2SAT 98
[2022-06-13 15:22] VITALS: BP 137/87; PULSE 74; RESP 16; TEMP 36.8; O2SAT 98
== END 2022-06-13 15:37 | disposition home or self-care (01) ==
PROVIDERS: Emergency Provider Emergency Medicine; PCP Family Medicine; Visit Provider Emergency Medicine
DX: A08.4 Viral intestinal infection, unspecified (principal); K21.9 Gastro-esophageal reflux disease without esophagitis; Z79.899 Other long term (current) drug therapy; Z87.891 Personal history of nicotine dependence
CPT/HCPCS: 96361; 96374; 99283; J7030; A4216; J2405

== ENCOUNTER 2023-03-08 09:49 | Emergency (ER) | payer MEDICAID, SELFPAY ==
[2023-03-08 09:50] VITALS: BP 126/92; PULSE 93; RESP 14; TEMP 36.6; O2SAT 100; BMI 52.1
--- NOTE | 2023-03-08 10:12 | ED.VIS.DYS ---
HPI History of Present Illness Chief Complaint: Shortness of Breath Informant: patient Onset/Context/Timing Onset: Today Context: gradual Timing: Continuous Quality: Positive for Wheezing Worsened by: - (Sitting upright) Relieved by: Nothing Associated Symptoms cough and rhinorrhea; Negative for post nasal drip, ear pain, fever, sore throat, chills, sweats, clear sputum, white sputum, yellow sputum or green sputum Narrative Narrative: Patient presents with shortness of breath that began today. Patient states it came on gradually. Patient states that has been constant. Patient states she feels like she is wheezing. Patient states it is worse when she sits up. Patient admits to some pain on the left side of her chest that goes into her back. Patient admits to a cough but denies any sputum. Patient admits to some rhinorrhea. Patient denies any fevers or chills. Patient denies any sore throat or ear pain. PE Risk Factors: Negative for Cancer, OCP + Smoking + > 35, Prior DVT or PE, Recent immobilization, Recent surgery or Recent travel [facility] Medical History Anemia Anxiety Chronic eczema Chronic GERD Depression Former smoker Gave to child recently Gestational HTN Headache Marijuana use Spontaneous vaginal delivery Home Medications omeprazole 40 mg capsule,delayed release 40 mg PO DAILY indigestion 06/23/20 [History Last Taken 06/12/22 08:00] ondansetron 4 mg disintegrating tablet 4 mg PO Q6H PRN nausea and vomiting #7 tabs 06/13/22 [Rx Last Taken Unknown] Allergy/AdvReac Type Severity Reaction Status Date / Time amoxicillin [From Augmentin] AdvReac Swelling Verified 03/08/23 09:52 clavulanic acid AdvReac Swelling Verified 03/08/23 09:52 [From Augmentin] Family History Mother PCOS (polycystic ovarian syndrome) Surgical History History of cholecystectomy History of tonsillectomy and adenoidectomy Pilonidal cyst Social History (Updated 03/08/23 @ 10:[address] Jordan Ramirez DO) adopted: No household members: significant other housing: house current occupational status: employed current occupation: [employer] pets and animals: Yes sexually active: No Smoking Status: Former smoker second hand exposure: Yes alcohol intake: current details: Not while substance use type: marijuana caffeine: Yes frequency: 1-2 times per week seatbelt use: always do you feel safe at home: Yes additional social history: BF: Balwinder ([employer]) ROS ROS ED Constitutional Constitutional ED: Denies chills or fever(s) Eyes Eyes: Denies blurry vision or change in vision ENT ENT ED: Reports rhinorrhea; Denies sore throat Cardiovascular Cardiovascular: Reports chest pain; Denies palpitations Respiratory/Chest Respiratory/Chest: Reports cough and dyspnea Gastrointestinal Gastrointestinal: Denies nausea or vomiting Genitourinary Genitourinary ED: Denies dysuria or hematuria Musculoskeletal Musculoskeletal: Reports back pain and neck pain Integumentary Denies abscess or rash Neurologic Neurologic: Reports headache(s); Denies weakness Allergic/Immunologic Allergic/Immunologic ED: Denies mouth swelling or urticaria EXAM Physical Exam Const Vital Signs: 03/08/23 09:50 03/08/23 10:23 03/08/23 10:40 Temperature 97.9 F Temperature Source Temporal Pulse Rate 93 80 Respiratory Rate 14 18 Respiratory Effort Short of Breath Respiratory Pattern Normal Blood Pressure 126/92 H Blood Pressure Mean 103 Pulse Ox 100 Oxygen Delivery Method Room Air 03/08/23 10:41 Temperature Temperature Source Pulse Rate Respiratory Rate Respiratory Effort Respiratory Pattern Blood Pressure Blood Pressure Mean Pulse Ox 97 Oxygen Delivery Method Room Air Positive well nourished, well developed and obese General Appearance ED: well developed and NAD Nutritional Appearance: obese HEENT normocephalic and atraumatic Eyes PERRL and EOMs intact bilaterally Neck supple and no JVD Chest Wall palpation of chest normal Resp normal respiratory effort Effort and Inspection: Negative for respiratory distress Auscultation: wheezes scattered wheezes Cardio regular rate, regular rhythm and no murmurs GI normal to inspection, nondistended, normoactive bowel sounds, soft to palpation, non-tender and non-distended Extremity normal to inspection General Extremety ED: Negative for edema or tenderness General Extremity: Negative for edema Neuro oriented x3, CN's II-XII intact bilaterally and no sensory deficits noted Sensorium / Orientation: awake and alert Motor Exam: strength 5/5 throughout Psych mental status grossly normal MDM MDM MDM Narrative Medical decision making narrative: Differential diagnosis includes pneumonia, pneumothorax, asthma, viral illness, COVID-19 infection, and influenza infection. Chest x-ray will be obtained to assess for pneumonia and pneumothorax. COVID-19 rapid antigen will be obtained to assess for COVID-19 infection. Influenza A and influenza B antigens will be obtained to assess for influenza infection. Lab Data Lab results narrative: COVID-19 rapid antigen was reviewed and was negative. Influenza A and influenza B antigens were reviewed and were negative. Radiography Chest X-Ray - ED: 2 View, Read by ED Physician, Read by Radiologist and No Acute Disease Diagnostic Testing: Clinical Impression(s) from Imaging Studies Chest X-Ray 03/08/23 10:16 IMPRESSION: No acute findings in the chest and no significant interval change when compared to 07/11/2020. Electronically Signed: Jose Del Real MD at 10:51 EDT , PA and lateral chest x-ray was obtained. There are 2 views. On my independent interpretation, lung quigley are clear. There is normal cardiac silhouette. Bony thorax is normal. There is no acute process noted. Radiologist also interpreted the x-ray and agrees. Treatment and Re-Evaluation :: Patient was given a DuoNeb aerosol here. Patient felt better after this. Patient was advised of her findings. Patient was advised that this is most likely a viral upper respiratory infection. Patient was instructed to follow-up with her primary care physician in 5 to 7 days. Patient was instructed to take Tylenol or ibuprofen as needed for any fevers or chills. Patient was instructed return if worse in any way. Patient understood and was agreeable with the plan. All questions were answered. Discharge Plan Triage Chief Complaint: Shortness of Breath ED Provider: Jordan Ramirez Dx/Rx/DC Orders Clinical Impression: Dyspnea, Viral upper respiratory tract infection Instructions: ED URI, Viral, No Abx (Adult) Prescriptions: No Action omeprazole 40 mg capsule,delayed release(DR/EC) 40 mg PO DAILY ondansetron 4 mg tablet,disintegrating 4 mg PO Q6H PRN (Reason: nausea and vomiting) Qty: 7 0RF Primary Care Provider: Ramone Joseph Referrals: Ramone Joseph MD [Primary Care Provider] - 5-7 Days Disposition Disposition: Home, Self Care
--- NOTE | 2023-03-08 10:16 | RAD_ITS ---
EXAM: XR CHEST, 2 VIEWS CLINICAL INDICATION: Dyspnea -- -- sudden onset difficulty breathing this morning TECHNIQUE: Frontal and lateral views of the chest. COMPARISON: 07/11/2020. FINDINGS: LUNGS AND PLEURAL SPACES: The lungs are clear. No pneumothorax. No effusion. HEART: Unremarkable. Cardiac silhouette not enlarged. MEDIASTINUM: Central airways and mediastinal contour are unremarkable. BONES/JOINTS: Minimal anterior wedging of T7, T8, T9 and T10 vertebral bodies are presumably from remote injury. No lytic or blastic lesions. SOFT TISSUES: Unremarkable. RAD/Chest PA and Lateral IMPRESSION: No acute findings in the chest and no significant interval change when compared to 07/11/2020. Electronically Signed: Jose Del Real MD at 10:51 EDT ,
[2023-03-08] MEDS: Ipratropium/Albuterol Sulfate 3 ML AMPUL.NEB INHALATION (10:39)
[2023-03-08 10:40] VITALS: PULSE 80; RESP 18
[2023-03-08 10:41] VITALS: O2SAT 97
== END 2023-03-08 11:59 | disposition home or self-care (01) ==
PROVIDERS: Emergency Provider Emergency Medicine; PCP Family Medicine; Visit Provider Emergency Medicine
DX: J06.9 Acute upper respiratory infection, unspecified (principal); Z68.43 Body mass index [BMI] 50.0-59.9, adult; E66.9 Obesity, unspecified; Z87.891 Personal history of nicotine dependence
CPT/HCPCS: 71046; 87428; 94640; 99282

== ENCOUNTER 2024-05-06 12:39 | Emergency (ER) | payer MEDICAID, SELFPAY ==
[2024-05-06 12:40] VITALS: BP 130/76; PULSE 74; RESP 19; TEMP 36.2; O2SAT 100; BMI 50.6
[2024-05-06 14:08] VITALS: BP 131/71; BP 138/74; BP 141/76; PULSE 82; PULSE 88; PULSE 93
[2024-05-06] MEDS: Ondansetron 4 MG/2 ML Vial IV (14:21)
--- NOTE | 2024-05-06 14:53 | EX.ED.DYSGE1 ---
HPI History of Present Illness Chief Complaint: Nausea/Vomiting Detail of Chief Complaint: Nausea and vomiting since yesterday. Informant: patient Onset/Context/Timing Onset: Today and Yesterday Context: Sudden Onset Timing: Intermittent Quality: 8 times yesterday 3 times today Location: GI/hyperemesis gravidarum Current Severity: Mild Maximum Severity: Severe Worsened by: Nothing specific Relieved by: Nothing, patient is not on an antiemetic Associated Symptoms Associated Symptoms: Possibly lightheadedness and decreased urine output Narrative Narrative: Patient is a 23-year-old G2, P1 Ab0 female who had problems with dehydration and nausea vomiting with first . She has not seen an OB. She states she has not picked 1 out yet. She states she just found out she was yesterday. She denies fever, chills night sweats. She denies headache, visual, ocular auditory symptoms. She denies cardiac or respiratory symptoms. She denies hematemesis, melena medic easier. She denies coffee-ground emesis. Prior similar symptoms: Yes Recent Illness/Hospitalization: No PFSH PFSH Medical History Gave to child recently Marijuana use Former smoker Spontaneous vaginal delivery Anxiety Depression Headache Gestational HTN Chronic GERD Anemia Chronic eczema Home Medications ?Medication ?Instructions ?Recorded ?Last Taken ?Type omeprazole 40 mg capsule,delayed 40 mg PO DAILY indigestion 06/23/20 06/12/22 08:00 History release ondansetron 4 mg disintegrating 4 mg PO Q6H PRN nausea and 06/13/22 Unknown Rx tablet vomiting #7 tabs nitrofurantoin 100 mg PO Q12 #10 CAPSULES 05/06/24 Unknown Rx monohydrate/macrocrystals 100 mg capsule ondansetron 4 mg disintegrating 4 mg PO Q8H PRN PRN Nausea #10 tabs 05/06/24 Unknown Rx tablet Allergy/AdvReac Type Severity Reaction Status Date / Time amoxicillin (From Augmentin) AdvReac Swelling Verified 05/06/24 12:42 clavulanic acid (From AdvReac Swelling Verified 05/06/24 12:42 Augmentin) Family History Mother PCOS (polycystic ovarian syndrome) Surgical History History of cholecystectomy History of tonsillectomy and adenoidectomy Pilonidal cyst Social History adopted: No household members: significant other housing: house current occupational status: employed current occupation: [employer] pets and animals: Yes sexually active: No Smoking Status: Former smoker second hand exposure: Yes alcohol intake: current details: Not while substance use type: marijuana caffeine: Yes frequency: 1-2 times per week seatbelt use: always do you feel safe at home: Yes additional social history: BF: Balwinder ([employer]) ROS ROS ED Constitutional Constitutional ED: Denies chills, fever(s) or subjective Eyes Eyes: Denies blurry vision or change in vision ENT ENT ED: Denies ear pain, rhinorrhea or sore throat Cardiovascular Cardiovascular: Denies chest pain or palpitations Respiratory/Chest Respiratory/Chest: Denies cough, dyspnea or dyspnea on exertion Gastrointestinal Gastrointestinal: Reports abdominal pain, nausea and vomiting; Denies constipation, diarrhea or melena Genitourinary Genitourinary ED: Denies dysuria, hematuria or urinary frequency Musculoskeletal Musculoskeletal: Denies arthralgias, back pain or myalgias Integumentary Denies rash Neurologic Neurologic: Denies headache(s), paresthesias or weakness Psychiatric Psychiatric: Denies anxiety or depression Endocrine Endocrinology: Denies cold intolerance or heat intolerance Hematologic/Lymphatic Hematologic/Lymphatic: Reports systems reviewed and no addt'l complaints, except as documented EXAM Physical Exam Const Vital Signs: 05/06/24 12:40 05/06/24 14:08 Temperature 97.1 F L Temperature Source Temporal Pulse Rate 74 Pulse Rate [Lying] 82 Pulse Rate [Sitting (for 1 minute prior to obtaining)] 88 Pulse Rate [Standing (for 1 minute prior to obtaining)] 93 Respiratory Rate 19 H Blood Pressure 130/76 H Blood Pressure [Lying] 141/76 H Blood Pressure [Sitting (for 1 minute prior to obtaining)] 138/74 H Blood Pressure [Standing (for 1 minute prior to obtaining)] 131/71 H Blood Pressure Mean 94 Blood Pressure Mean [Lying] 97 Blood Pressure Mean [Sitting (for 1 minute prior to obtaining)] 95 Blood Pressure Mean [Standing (for 1 minute prior to obtaining)] 91 Pulse Ox 100 Oxygen Delivery Method Room Air Positive well nourished and well developed Constitutional Narrative: Patient does not appear well. Vital signs are remarkable slight elevation of blood pressure. She is not tachycardic. General Appearance ED: well developed; Negative for cyanotic, diaphoretic or pallor HEENT Reports moist mucous membranes HEENT Narrative: Head is atraumatic normocephalic. Ears normal. Nares patent. Posterior pharynx is normal. Eyes PERRL and EOMs intact bilaterally General Eye ED: Negative for pale conjunctiva or scleral icterus Neck no lymphadenopathy, supple and no JVD Chest Wall inspection of chest normal and palpation of chest normal Resp normal respiratory effort and clear to auscultation bilaterally Cardio regular rate, regular rhythm, S1 normal heart sound, S2 normal heart sound and no murmurs GI normal to inspection, nondistended, normoactive bowel sounds, non-tender, non-distended and no masses; Negative for hepatosplenomegaly Back/Spine no CVA tenderness Extremity normal to inspection Extremity Narrative: There is no clubbing or cyanosis noted. Neuro oriented x3, CN's II-XII intact bilaterally and no sensory deficits noted Sensorium / Orientation: alert Motor Exam: strength 5/5 throughout Psych mental status grossly normal Skin no rashes or lesions noted, no wounds and skin turgor normal General Skin Exam: elasticity normal; Negative for jaundice or pallor MDM MDM MDM Narrative Medical decision making narrative: Hep-Lock was placed. She was treated with Zofran for nausea and vomiting. Clinically she does not appear dehydrated. Will obtain UA to assess for ketones and specific gravity. Also orthostatics were ordered. If there are ketones in her urine or spec gravity is elevated or she is orthostatic will administer IV fluids. Reason IV fluids were not initially administer is because of the nationwide shortage of IV fluids. Lab Data Attestation: I reviewed the patient's lab results. Lab results narrative: Specific gravity is normal at 1.02. Macro was positive for ketones and urobilinogen as well as leukoesterase. Micro reveals 0-5 RBCs 5-10 WBCs and 5-10 epithelial cells which is considered normal. There is 2+ bacteria. Since she is urine culture was sent. Labs: Laboratory Results - last 24 hr 05/06/24 05/06/24 14:20 15:12 Sodium 138 Potassium 3.7 Chloride 110 H Carbon Dioxide 22.0 Anion Gap 7 BUN 7 Creatinine 0.69 Estim Creat Clear Calc 158.07 Est GFR (MDRD) Af Amer 133 Est GFR (MDRD) Non-Af 110 BUN/Creatinine Ratio 10.2 Glucose 78 Calcium 9.0 Urine Color Yellow Urine Clarity Sl. Cloudy Urine pH 6.0 Ur Specific [place] 1.020 Urine Protein 15 H Urine Glucose (UA) Normal Urine Ketones 15 H Urine Occult Blood Negative Urine Nitrite Negative Urine Bilirubin Negative Urine Urobilinogen 4 H Ur Leukocyte Esterase 500 H Urine RBC 0-5 SEEN Urine WBC 5-10 SEEN Ur Squamous Epith Cells 5-10 SEEN Urine Bacteria 2+ Urine Mucus 2+ Treatment and Re-Evaluation :: Patient was reassessed at 1644. Patient is eating Leslie dunes and crackers. She has had no vomiting. She does report improvement after Zofran. Discharge Plan Triage Chief Complaint: Nausea/Vomiting Other Complaint: ED Provider: Marcelino Eastman Dx/Rx/DC Orders Clinical Impression: Nausea & vomiting, First trimester , Acute dehydration, Ketosis, Adult BMI 50.0-59.9 kg/sq m, Bacteriuria during Instructions: ED Hyperemesis Gravidarum Prescriptions: New ondansetron 4 mg tablet,disintegrating 4 mg PO Q8H PRN PRN (Reason: Nausea) Qty: 10 0RF nitrofurantoin monohyd/m-cryst 100 mg capsule 100 mg PO Q12 Qty: 10 0RF No Action omeprazole 40 mg capsule,delayed release(DR/EC) 40 mg PO DAILY ondansetron 4 mg tablet,disintegrating 4 mg PO Q6H PRN (Reason: nausea and vomiting) Qty: 7 0RF Primary Care Provider: Ramone Joseph Referrals: Ramone Joseph MD [Primary Care Provider] - 3-5 Days if not improving Activity Restrictions/Additional Instructions: Use will need to follow-up with your OB once you choose 1. Print Language: Spanish Disposition Disposition: Home, Self Care
[2024-05-06 14:58] LABS: Anion Gap 7 (5-15); BUN 7 mg/dL (7-18); BUN/Creat Ratio 10.2 RATIO (10-20); Chloride 110 mmol/L (98-107); Creatinine, Serum 0.69 mg/dL (0.55-1.02); EST Glomerular Filtration Rate 110 mL/min (>60); Est Glom Filt Rate - Afr Amer 133 mL/min (>60); Estimated Creatinine Clearance 158.07 ml/min; Glucose 78 mg/dL (74-106); Potassium 3.7 mmol/L (3.5-5.1); Sodium Level 138 mmol/L (136-145)
[2024-05-06 15:33] LABS: Color, Urine Yellow (Yellow); Glucose, Dipstick Normal (Normal); Ketone-Dipstick 15 mg/dl (Negative); Leukocyte Esterase-Dipstick 500 /ul (Negative); Nitrite-Dipstick Negative (Negative); Occult Blood-Urine Negative /ul (Negative); Protein-Dipstick 15 mg/dl (Negative); Urine Bilirubin Dipstick Negative (Negative); Urine Clarity Sl. Cloudy (Clear); Urine Urobilinogen 4 mg/dl (Normal)
[2024-05-06 15:42] LABS: Bacteria 2+ /hpf (None Seen); Mucous, Urine 2+ /hpf (<or=2+); White Blood Cells 5-10 SEEN /hpf (0-5)
[2024-05-06 15:43] LABS: Squamous Epithelial Cells - UA 5-10 SEEN /hpf (5-10)
[2024-05-06 15:47] LABS: Red Blood Cells-Urine 0-5 SEEN /hpf (0-5)
== END 2024-05-06 16:57 | disposition home or self-care (01) ==
PROVIDERS: Emergency Provider Emergency Medicine; PCP Family Medicine; Visit Provider Emergency Medicine
DX: O21.1 Hyperemesis gravidarum with metabolic disturbance (principal); E88.89 Other specified metabolic disorders; O99.281 Endocrine, nutritional and metabolic diseases complicating pregnancy, first trimester; O99.891 Other specified diseases and conditions complicating pregnancy; E86.0 Dehydration; R82.71 Bacteriuria; Z87.891 Personal history of nicotine dependence; Z3A.00 Weeks of gestation of pregnancy not specified
CPT/HCPCS: 80048; 81001; 87086; 87088; 96374; 99284; A4216; J2405

== ENCOUNTER 2024-06-26 22:47 | Emergency (ER) | payer MEDICAID, SELFPAY ==
[2024-06-26 22:47] VITALS: BP 135/89; PULSE 97; RESP 16; TEMP 37; O2SAT 99; BMI 50.5
--- NOTE | 2024-06-26 23:02 | US_ITS ---
STUDY: SECOND AND THIRD TRIMESTER OBSTETRICAL ULTRASOUND - LIMITED REASON FOR EXAM: Female, 23 years old pain and bleeding COMPARISON: 12/25/2020 ultrasound. TECHNIQUE: Transabdominal and transvaginal sonographic images of the pelvis. FINDINGS: There is a single intrauterine . The fetus is in the cephalic presentation. The heart rate measures 161 BPM. Amniotic fluid volume appears grossly normal with a maximum vertical pocket of 3.1 cm. The placenta is posterior with no evidence of placenta previa. The cervix measures 3.0 cm in length. The internal os of the cervix is closed. Small retroplacental hematoma measuring 2.0 x 2.0 x 0.5 cm. BIOMETRY: BPD: 2.5 cm: 14 weeks, 2 days HC: 10.1 cm: 14 weeks, 5 days AC: 7.7 cm: 14 weeks, 1 days FL: 1.2 cm: 13 weeks, 5 days age by today''s US: 14 weeks, 2 days and WES of 12/23/2024. Estimated weight: 86 grams corresponding to the 93rd percentile. US/OB Limited With Biometrics IMPRESSION: 1. Single live intrauterine in the cephalic presentation with an anterior placenta. 2. Small retroplacental hematoma. Electronically Signed: Ramone Wilkerson DO at 0:37 EST ,
[2024-06-27 00:17] LABS: Absolute Lymphocyte Count 4.02 X10^3/uL (0.83-4.51); Basophil# 0.04 X10^3/uL; Basophil% 0.3 % (0-1); Eosinophil# 0.44 X10^3/uL; Eosinophils% 3.6 % (0-5); Hematocrit 32.9 % (37-47); Hemoglobin 11.2 g/dL (12.0-15.0); Lymphocyte # 4.02 X10^3/ul (0.83-4.51); Lymphocyte % 32.7 % (19-41); Mean Corpuscular Volume 82.3 fL (81-99); Mean Platelet Vol. 9.8 fl (6.2-12.0); Monocyte# 0.76 X10^3/uL; Monocyte% 6.2 % (0-10); NRBC Flagged by Analyzer 0 % (0-5); Neutrophil % 56.9 % (47-70); Platelet Count 297 K/mm3 (150-450); RBC Distribution Width CV 14.5 % (11.6-14.6); RBC Distribution Width SD 42.9 fl (35.1-43.9); White Blood Count 12.3 K/mm3 (4.4-11.0)
[2024-06-27 00:18] LABS: Mucous, Urine 0 SEEN /hpf (<or=2+); White Blood Cells 0 SEEN /hpf (0-5)
[2024-06-27 00:20] LABS: Color, Urine Yellow (Yellow); Glucose, Dipstick Normal (Normal); Ketone-Dipstick Negative (Negative); Leukocyte Esterase-Dipstick 25 /ul (Negative); Nitrite-Dipstick Negative (Negative); Occult Blood-Urine 250 /ul (Negative); Protein-Dipstick 15 mg/dl (Negative); Specific Gravity, Urine 1.025 (1.002-1.030); Urine Bilirubin Dipstick Negative (Negative); Urine Clarity Clear (Clear); Urine Urobilinogen 1 mg/dl (Normal)
[2024-06-27 00:43] LABS: hCG Titer Quant., Serum 78130 mIU/mL (1-3)
[2024-06-27 00:47] VITALS: RESP 15; O2SAT 97
[2024-06-27 00:48] LABS: Bacteria 2+ /hpf (None Seen); Red Blood Cells-Urine 0-5 SEEN /hpf (0-5); Squamous Epithelial Cells - UA 0-5 SEEN /hpf (5-10)
--- NOTE | 2024-06-27 00:58 | ED.VIS.FEGU ---
HPI HPI - Female History of Present Illness Chief Complaint: Vag Bld, Preg Informant: patient Narrative Narrative: Patient is a G3, P1 with 1 spontaneous miscarriage. She states she is roughly 13 weeks . She reports that today she is been having a lot of abdominal and back cramping. She states she did not think much of this as she was told it could be normal during . However this evening she used the restroom and wiped and there was bright red blood. She denies any history of bleeding disorder or blood thinner use. However with the persistent cramping and now bleeding she is concerned that there may be something wrong with her such as a miscarriage and therefore comes in for evaluation [facility] Medical History (Updated 06/27/24 @ 01:[address] Jason Valdez DO) False labor Gave to child recently Marijuana use Former smoker Spontaneous vaginal delivery Anxiety Depression Headache Gestational HTN Chronic GERD Anemia Chronic eczema Home Medications ?Medication ?Instructions ?Recorded ?Last Taken ?Type omeprazole 40 mg capsule,delayed 40 mg PO DAILY indigestion 06/23/20 06/12/22 08:00 History release doxylamine 10 mg-pyridoxine (vit 1 tab PO BID 06/26/24 Unknown History B6) 10 mg tablet,delayed release (Diclegis) ergocalciferol (vitamin D2) 1,250 1,250 mcg PO QWEEK 06/26/24 Unknown History mcg (50,000 unit) capsule sertraline 50 mg tablet 50 mg PO DAILY 06/26/24 Unknown History amoxicillin 500 mg capsule 500 mg PO TID 7 days #21 caps 06/27/24 Unknown Rx Allergy/AdvReac Type Severity Reaction Status Date / Time amoxicillin (From Augmentin) AdvReac Swelling Verified 06/26/24 22:49 clavulanic acid (From AdvReac Swelling Verified 06/26/24 22:49 Augmentin) Family History Mother PCOS (polycystic ovarian syndrome) Surgical History History of cholecystectomy History of tonsillectomy and adenoidectomy Pilonidal cyst Social History adopted: No household members: significant other housing: house current occupational status: employed current occupation: [employer] pets and animals: Yes sexually active: No Smoking Status: Former smoker second hand exposure: Yes alcohol intake: current details: Not while substance use type: marijuana caffeine: Yes frequency: 1-2 times per week seatbelt use: always do you feel safe at home: Yes additional social history: BF: Balwinder ([employer]) ROS ROS ED Constitutional Constitutional ED: Denies chills or fever(s) ENT ENT ED: Denies sore throat Cardiovascular Cardiovascular: Denies chest pain Respiratory/Chest Respiratory/Chest: Denies cough or dyspnea Gastrointestinal Gastrointestinal: Reports abdominal pain; Denies diarrhea, nausea or vomiting Genitourinary Genitourinary ED: Reports other Details: Positive vaginal bleeding ; Denies dysuria Musculoskeletal Musculoskeletal: Reports other Details: Positive back pain Integumentary Denies rash Neurologic Neurologic: Denies headache(s) Hematologic/Lymphatic Hematologic/Lymphatic: Denies easy bleeding or easy bruising EXAM Physical Exam Const Vital Signs: 06/26/24 22:47 06/27/24 00:47 06/27/24 01:01 Temperature 98.6 F 98.1 F Temperature Source Oral Pulse Rate 97 75 Respiratory Rate 16 15 18 Blood Pressure 135/89 H Blood Pressure Mean 104 Pulse Ox 99 97 97 Oxygen Delivery Method Room Air Room Air Positive well nourished, well developed and obese General Appearance ED: well developed; Negative for pallor Nutritional Appearance: obese HEENT HEENT Narrative: Normocephalic atraumatic Eyes PERRL and EOMs intact bilaterally General Eye ED: Negative for scleral icterus Neck supple Resp normal respiratory effort and clear to auscultation bilaterally Cardio regular rate and regular rhythm GI normal to inspection, nondistended, normoactive bowel sounds, soft to palpation, non-tender, non-distended and no masses Auscultation: normoactive bowel sounds Palpation: soft Narrative: Patient deferred Back/Spine no CVA tenderness Extremity normal to inspection and full ROM Extremity Narrative: No asymmetric edema no pitting edema negative Homans' sign bilaterally Neuro oriented x3, CN's II-XII intact bilaterally and no sensory deficits noted Sensorium / Orientation: alert Motor Exam: strength 5/5 throughout Psych mental status grossly normal Skin no rashes or lesions noted and no wounds General Skin Exam: Negative for jaundice or pallor MDM MDM MDM Narrative Medical decision making narrative: Patient arrived to the ER with stable vitals. She reported abdominal cramping followed by bright red blood from her vagina. With her report of being approximate 13 weeks there is concern for a threatened versus spontaneous miscarriage. As she also reports a history of anemia there is concern for acute blood loss anemia or secondary infection. Blood work showed leukocytosis of 12.3 but this is most likely inflammatory/stress response from . H&H was technically low but stable at 11.2 and 32.9 and therefore there is no need for blood transfusion. The patient's quantitative hCG value was 78,000 which does correlate with her reported gestational age of 13 weeks. An ultrasound was performed which showed a closed cervical os a fetus within the uterus with a stable heartbeat. It did show retroplacental hematoma which does correlate with her because of bleeding. Her blood type is O+ therefore there is no need for RhoGAM. Her urine sample did show +2 bacteria without contamination or white blood cells. It is nitrite negative and without white blood cells this is most likely normal sofía but with her status she will be prescribed amoxicillin which she states she can take. However at this time with stable vitals and no persistent bleeding and a soft nonsurgical abdomen and the fact the ultrasound confirms there is a single IUP with normal heart rate going against demise there is no need for further workup and patient is otherwise safe for discharge. History & Record Review Discussion w/independent historian: Patient Lab Data Attestation: I reviewed the patient's lab results. Labs: Laboratory Results - last 24 hr 06/26/24 06/27/24 23:40 00:14 WBC 12.3 H RBC 4.00 L Hgb 11.2 L Hct 32.9 L MCV 82.3 MCH 28.0 MCHC 34.0 RDW Std Deviation 42.9 RDW Coeff of [place] 14.5 Plt Count 297 MPV 9.8 Immature Gran % (Auto) 0.300 Neut % (Auto) 56.9 Lymph % (Auto) 32.7 [place] % (Auto) 6.2 Eos % (Auto) 3.6 Baso % (Auto) 0.3 Absolute Neuts (auto) 7.0 Absolute Lymphs (auto) 4.02 Nucleated RBC % 0 HCG, Quant 60968 H Urine Color Yellow Urine Clarity Clear Urine pH 6.0 Ur Specific [place] 1.025 Urine Protein 15 H Urine Glucose (UA) Normal Urine Ketones Negative Urine Occult Blood 250 H Urine Nitrite Negative Urine Bilirubin Negative Urine Urobilinogen 1 H Ur Leukocyte Esterase 25 H Urine RBC 0-5 SEEN Urine WBC 0 SEEN Ur Squamous Epith Cells 0-5 SEEN Urine Bacteria 2+ Urine Mucus 0 SEEN Blood Type O POSITIVE Radiography Diagnostic Testing: Clinical Impression(s) from Imaging Studies Obstetrics Ultrasound 06/26/24 23:02 IMPRESSION: 1. Single live intrauterine in the cephalic presentation with an anterior placenta. 2. Small retroplacental hematoma. Electronically Signed: Ramone Wilkerson DO at 0:37 EST , Discharge Plan Triage Chief Complaint: Vag Bld, Preg ED Provider: Jason Valdez Dx/Rx/DC Orders Clinical Impression: Vaginal bleeding in , Chronic GERD, Anxiety and depression Instructions: Bleeding During Early Prescriptions: New amoxicillin 500 mg capsule 500 mg PO TID 7 Days Qty: 21 0RF No Action omeprazole 40 mg capsule,delayed release(DR/EC) 40 mg PO DAILY doxylamine-pyridoxine (vit B6) [Diclegis] 10-10 mg tablet,delayed release (DR/EC) 1 tab PO BID Patient Comments: 2 tabs at bedtime ergocalciferol (vitamin D2) 1,250 mcg (50,000 unit) capsule 1,250 mcg PO QWEEK sertraline 50 mg tablet 50 mg PO DAILY Primary Care Provider: Ramone Joseph Referrals: Ramone Joseph MD [Primary Care Provider] - Heydi Cleaning MD [Med Staff - Active Staff] - Activity Restrictions/Additional Instructions: Your ultrasound showed you have a retroplacental hematoma which is the cause of your bleeding. This will take time to resolve and therefore you may have some intermittent bleeding over the next 5 to 7 days. Follow-up with [facility] for repeat evaluation and return to the ER should you have any further concerns or worsening of symptoms Print Language: [place] Disposition Disposition: Home, Self Care Discharge Date/Time: 06/27/24 01:03
[2024-06-27 01:01] VITALS: PULSE 75; RESP 18; TEMP 36.7; O2SAT 97
== END 2024-06-27 01:03 | disposition home or self-care (01) ==
PROVIDERS: Emergency Provider Emergency Medicine; PCP Family Medicine; Visit Provider Emergency Medicine
DX: O20.9 Hemorrhage in early pregnancy, unspecified (principal); O99.341 Other mental disorders complicating pregnancy, first trimester; O99.611 Diseases of the digestive system complicating pregnancy, first trimester; K21.9 Gastro-esophageal reflux disease without esophagitis; F32.A Depression, unspecified; F41.9 Anxiety disorder, unspecified; Z3A.13 13 weeks gestation of pregnancy; Z79.899 Other long term (current) drug therapy; Z87.891 Personal history of nicotine dependence
CPT/HCPCS: 76816; 81001; 84702; 85025; 86900; 86901; 99282; A4216

== ENCOUNTER → 2024-07-26 | Outpatient (CLI) | payer MEDICAID, SELFPAY ==
[2024-07-26 12:39] LABS: Protein, Urine (Random) 21.7 mg/dL (<11.9); Protein:Creat Ratio 119 mg/g CRE (0-200)
[2024-07-26 12:57] LABS: Amphetamine Urine VISTA NEGATIVE (<1000 ng/mL); Barbiturate Urine VISTA NEGATIVE (< 200 ng/mL); Benzodiazepine Urine VISTA NEGATIVE (< 200 ng/mL); Cocaine Urine VISTA NEGATIVE (< 300 ng/mL); Ecstacy Urine VISTA NEGATIVE (< 500 ng/mL); Methadone Urine VISTA NEGATIVE (< 300 ng/mL); PCP Urine VISTA NEGATIVE (< 25 ng/mL); THC Urine VISTA POSITIVE (< 50 ng/mL); Vista UDS pH Range 7
== END | disposition home or self-care (01) ==
LOC: LABSPEC 11:27
PROVIDERS: PCP Family Medicine; Referring Provider Obstetrics & Gynecology; Visit Provider Obstetrics & Gynecology
DX: Z34.90 Encounter for supervision of normal pregnancy, unspecified, unspecified trimester (principal); Z87.59 Personal history of other complications of pregnancy, childbirth and the puerperium
CPT/HCPCS: 80307; 82570; 84156

== ENCOUNTER → 2024-09-17 | Outpatient (CLI) | payer MEDICAID, SELFPAY ==
[2024-09-17 15:49] LABS: Protein, Urine (Random) 20.4 mg/dL (0.0-12.0); Protein:Creat Ratio 95 mg/g CRE (0-200)
== END | disposition home or self-care (01) ==
LOC: LABSPEC 14:50
PROVIDERS: PCP Family Medicine; Referring Provider Obstetrics & Gynecology; Visit Provider Obstetrics & Gynecology
DX: Z34.90 Encounter for supervision of normal pregnancy, unspecified, unspecified trimester (principal); Z87.59 Personal history of other complications of pregnancy, childbirth and the puerperium
CPT/HCPCS: 82570; 84156; 87086; 87088

== ENCOUNTER → 2024-10-08 | Outpatient (CLI) | payer MEDICAID, SELFPAY ==
[2024-10-08 17:03] LABS: Absolute Lymphocyte Count 2.38 X10^3/uL (0.83-4.51); Absolute Neutrophil Count 7.9 X10^3/uL (2.0-7.7); Basophil# 0.02 X10^3/uL; Basophil% 0.2 % (0-1); Eosinophil# 0.19 X10^3/uL; Eosinophils% 1.6 % (0-5); Hematocrit 30.7 % (37-47); Hemoglobin 10.1 g/dL (12.0-15.0); Lymphocyte # 2.38 X10^3/ul (0.83-4.51); Lymphocyte % 20.7 % (19-41); Mean Corp Hgb Conc 32.9 g/dL (32-36); Mean Corpuscular Hgb 28.5 pg (27.0-32.0); Mean Corpuscular Volume 86.5 fL (81-99); Monocyte# 0.95 X10^3/uL; Monocyte% 8.2 % (0-10); NRBC Flagged by Analyzer 0 % (0-5); Neutrophil # 7.93 X10^3/uL (2.7-7.7); Neutrophil % 68.9 % (47-70); Platelet Count 325 K/mm3 (150-450); RBC Distribution Width CV 13.5 % (11.6-14.6); RBC Distribution Width SD 42.2 fl (35.1-43.9); Red Blood Count 3.55 M/mm3 (4.2-5.4); White Blood Count 11.5 K/mm3 (4.4-11.0)
[2024-10-08 19:57] LABS: Protein, Urine (Random) 47.6 mg/dL (0.0-12.0); Protein:Creat Ratio 151 mg/g CRE (0-200)
[2024-10-08 20:01] LABS: AST(SGOT) 30 U/L (<=31); Alanine Aminotransfer ALT/SGPT 30 U/L (<=34); Albumin, Serum 3.4 g/dL (3.5-5.0); Alkaline Phosphatase 100 U/L (35-104); Anion Gap 9 (5-15); BUN 5 mg/dL (4-19); BUN/Creat Ratio 10.5 RATIO (10-20); Carbon Dioxide 19.3 mmol/L (21.0-32.0); Chloride 108 mmol/L (98-108); Creatinine, Serum 0.47 mg/dL (0.70-1.20); EST Glomerular Filtration Rate 135 (>60); Globulin 3.6 g/dL (2.2-4.2); Glucose 82 mg/dL (70-99); Potassium 3.2 mmol/L (3.3-5.1); Sodium Level 136 mmol/L (133-145); Total Bilirubin 0.19 mg/dL (0.00-1.30)
[2024-10-08 23:26] LABS: Hepatitis B Surface Antigen Nonreactive (Nonreactive); Syphilis Antibodies Nonreactive (Nonreactive)
[2024-10-09 00:14] LABS: HIV Nonreactive (Nonreactive)
== END | disposition home or self-care (01) ==
LOC: BWCLAB 14:36
PROVIDERS: Obstetrics & Gynecology; PCP Family Medicine; Referring Provider Nurse Practitioner Women's Health; Visit Provider Nurse Practitioner Women's Health
DX: O12.12 Gestational proteinuria, second trimester (principal); Z3A.27 27 weeks gestation of pregnancy
CPT/HCPCS: 36415; 80053; 82570; 84156; 85025; 86703; 86780; 86850; 86900; 86901; 87340

== ENCOUNTER 2024-10-09 07:57 | Emergency (ER) | payer MEDICAID, SELFPAY ==
[2024-10-09 07:58] VITALS: BP 127/84; PULSE 103; RESP 18; TEMP 36.2; O2SAT 100; BMI 49.1
[2024-10-09 08:25] LABS: Absolute Lymphocyte Count 2.66 X10^3/uL (0.83-4.51); Absolute Neutrophil Count 8.6 X10^3/uL (2.0-7.7); Basophil# 0.04 X10^3/uL; Basophil% 0.3 % (0-1); Eosinophil# 0.23 X10^3/uL; Eosinophils% 1.8 % (0-5); Hematocrit 32.8 % (37-47); Hemoglobin 10.9 g/dL (12.0-15.0); Lymphocyte # 2.66 X10^3/ul (0.83-4.51); Mean Corp Hgb Conc 33.2 g/dL (32-36); Mean Corpuscular Hgb 28.6 pg (27.0-32.0); Mean Corpuscular Volume 86.1 fL (81-99); Mean Platelet Vol. 9.7 fl (6.2-12.0); Monocyte# 1.02 X10^3/uL; Monocyte% 8.1 % (0-10); NRBC Flagged by Analyzer 0 % (0-5); Neutrophil # 8.63 X10^3/uL (2.7-7.7); Neutrophil % 68.2 % (47-70); Platelet Count 343 K/mm3 (150-450); RBC Distribution Width CV 13.3 % (11.6-14.6); RBC Distribution Width SD 41.2 fl (35.1-43.9); Red Blood Count 3.81 M/mm3 (4.2-5.4); White Blood Count 12.7 K/mm3 (4.4-11.0)
--- NOTE | 2024-10-09 08:30 | ED.RN ---
Sitter at bedside room cleared, pt belongings bagged
[2024-10-09 08:31] LABS: Mucous, Urine 0 SEEN /hpf (<or=2+)
--- NOTE | 2024-10-09 08:33 | EX.ED.DYSGE1 ---
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 Patient notes she is about 28 weeks follows with [facility]. Ab1. Patient states that her father earlier this month and this has been in a significantly hard adjustment.. She states that she recently cut ties with the significant other who is the father of this . She notes that that individual has been stalking her with repeated phone calls and coming to her house. This morning she posted on Facebook that she was feeling suicidal. Somebody notified police who did a welfare check. She notes that she prior had suicide attempt in 2020. She states that she was seen counseling but that stopped about 2 years ago. She was supposed to be taking Zoloft but has not been taking it after discussing the medication with her mother and fears of medication side effects/addiction. She states that she has no particular plan. She does admit to recreational marijuana use as a coping mechanism since her father's passing. [facility] Medical History Marijuana use Former smoker Spontaneous vaginal delivery Anxiety Depression Headache Gestational HTN Chronic GERD Anemia Chronic eczema Home Medications ?Medication ?Instructions ?Recorded ?Last Taken ?Type omeprazole 40 mg capsule,delayed 40 mg PO DAILY PRN indigestion 10/09/24 Unknown History release Allergy/AdvReac Type Severity Reaction Status Date / Time clavulanic acid (From AdvReac Swelling Verified 10/08/24 13:57 Augmentin) Family History Mother PCOS (polycystic ovarian syndrome) Grandfather Bone cancer Surgical History History of cholecystectomy History of tonsillectomy and adenoidectomy Pilonidal cyst Social History adopted: No household members: children housing: house number of children: 1 current occupational status: employed 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 current occupational exposures/hazards: No pets and animals: Yes (Not taking care of litterbox) pets and animals: cat(s) history of recent travel: No sexually active: Yes Smoking Status: Current some day smoker tobacco type: cigarettes second hand exposure: Yes alcohol intake: current alcohol intake frequency: holidays/special occasions only details: Not while substance use type: marijuana well-balanced diet: daily or most days caffeine: No eating out: rarely or never during the past year weight has: remained stable what type of physical activity do you participate in: walking frequency: 3-4 times per week duration: 15-30 minutes/day alfreda/orthodoxy: None seatbelt use: sometimes do you feel safe at home: Yes additional social history: FOB not involved ROS ROS ED Constitutional Constitutional ED: Denies chills, fever(s) or weight loss Eyes Eyes: Denies change in vision or diplopia ENT ENT ED: Denies ear pain, rhinorrhea or sore throat Cardiovascular Cardiovascular: Denies chest pain, orthopnea, palpitations or racing heartbeat Respiratory/Chest Respiratory/Chest: Denies cough, dyspnea or orthopnea Gastrointestinal Gastrointestinal: Denies abdominal pain, diarrhea, nausea or vomiting Genitourinary Genitourinary ED: Denies dysuria, hematuria or urinary frequency Musculoskeletal Musculoskeletal: Denies arthralgias or myalgias Integumentary Denies abscess or rash Neurologic Neurologic: Denies headache(s) or weakness Psychiatric Psychiatric: Reports depression, suicidal ideation and suicidal thoughts; Denies anxiety Endocrine Endocrinology: Denies polydipsia, polyphagia or polyuria Allergic/Immunologic Allergic/Immunologic ED: Denies mouth swelling, tongue swelling or urticaria EXAM Physical Exam Const Vital Signs: 10/09/24 07:58 Temperature 97.1 F L Temperature Source Temporal Pulse Rate 103 H Respiratory Rate 18 Blood Pressure 127/84 H Blood Pressure Mean 98 Pulse Ox 100 Oxygen Delivery Method Room Air Positive well nourished and well developed General Appearance ED: well developed and NAD HEENT Reports normocephalic, head/scalp atraumatic and moist mucous membranes Eyes PERRL and EOMs intact bilaterally Neck no lymphadenopathy, supple and no JVD Resp normal respiratory effort and clear to auscultation bilaterally Cardio regular rate, regular rhythm and no murmurs GI normal to inspection, nondistended, normoactive bowel sounds and non-tender Palpation: soft Back/Spine no CVA tenderness and normal ROM Extremity normal to inspection General Extremety ED: Negative for edema General Extremity: Negative for edema Neuro oriented x3 and CN's II-XII intact bilaterally Sensorium / Orientation: alert Motor Exam: strength 5/5 throughout Psych Psych Narrative: Patient admits to feeling suicidal this morning as a coping mechanism. She states she is having a hard time processing all of her feelings and the issues with her former significant other is complicating the situation. She feels lost in terms of how to deal with her situation. Attitude: No agitated Mood & Affect: depressed and tearful Skin no rashes or lesions noted and no wounds MDM MDM MDM Narrative Medical decision making narrative: Differential diagnosis includes depression suicidality complications substance abuse heart tones are 158. Liver enzymes demonstrate an AST of 33 alk phos 119 total bilirubin is normal. Toxicology positive for cannabinoids negative alcohol level. White count 12.7 hemoglobin 10.9. I believe the patient is medically cleared. I have asked crisis to evaluate the patient. They are in agreement that the patient would certainly benefit from assessment and treatment. We do not feel that she is actively suicidal. We are going to work to try to get her into an IOP program which she is agreeable to. She was advised on return instructions notes understanding. History & Record Review Discussion w/independent historian: Patient Lab Data Attestation: I reviewed the patient's lab results. Labs: Laboratory Results - last 24 hr 10/09/24 08:10 WBC 12.7 H RBC 3.81 L Hgb 10.9 L Hct 32.8 L MCV 86.1 MCH 28.6 MCHC 33.2 RDW Std Deviation 41.2 RDW Coeff of Emerson 13.3 Plt Count 343 MPV 9.7 Immature Gran % (Auto) 0.600 Neut % (Auto) 68.2 Lymph % (Auto) 21.0 [place] % (Auto) 8.1 Eos % (Auto) 1.8 Baso % (Auto) 0.3 Absolute Neuts (auto) 8.6 H Absolute Lymphs (auto) 2.66 Nucleated RBC % 0 Sodium 136 Potassium 3.6 Chloride 107 Carbon Dioxide 16.8 L Anion Gap 12 BUN 3 L Creatinine 0.50 L Estim Creat Clear Calc 212.23 Est GFR (MDRD) Non-Af 133 BUN/Creatinine Ratio 6.6 L Glucose 90 Calcium 8.9 Total Bilirubin 0.33 Direct Bilirubin 0.14 AST 33 H ALT 31 Alkaline Phosphatase 119 H Total Protein 7.2 Albumin 3.5 Globulin 3.7 Urine Opiates Screen NEGATIVE U Buprenorphine Qual NEGATIVE Ur Oxycodone Screen NEGATIVE Urine Methadone Screen NEGATIVE Urine Fentanyl Screen NEGATIVE Ur Barbiturates Screen NEGATIVE Ur Phencyclidine Scrn NEGATIVE Ur Amphetamines Screen NEGATIVE U Benzodiazepines Scrn NEGATIVE Urine Cocaine Screen NEGATIVE U Cannabinoids Screen PRESUMPTIVE POSITIVE Ethyl Alcohol < 10.1 Management Discussion w/another healthcare provider: fuller brush worker/Case management Discharge Plan Triage Chief Complaint: Suicidal ED Provider: Jose Chauhan Dx/Rx/DC Orders Clinical Impression: Depression, , Suicidal ideation Prescriptions: No Action omeprazole 40 mg capsule,delayed release(DR/EC) 40 mg PO DAILY PRN (Reason: indigestion) Primary Care Provider: Ramone Joseph Referrals: Ramone Joseph MD [Primary Care Provider] - Activity Restrictions/Additional Instructions: Follow-up as discussed with social work. If you are feeling that you may harm yourself or your baby or anyone else please call 911 and come back to the emergency. Print Language: Niuean Disposition Disposition: Home, Self Care
[2024-10-09 08:49] LABS: AST(SGOT) 33 U/L (<=31); Alanine Aminotransfer ALT/SGPT 31 U/L (<=34); Albumin, Serum 3.5 g/dL (3.5-5.0); Alcohol, Blood (Medical)-Serum < 10.1 mg/dL (<=10.0); Alkaline Phosphatase 119 U/L (35-104); Anion Gap 12 (5-15); BUN 3 mg/dL (4-19); BUN/Creat Ratio 6.6 RATIO (10-20); Bilirubin, Direct 0.14 mg/dL (0.00-0.30); Calcium,Total 8.9 mg/dL (7.6-11.0); Carbon Dioxide 16.8 mmol/L (21.0-32.0); Chloride 107 mmol/L (98-108); EST Glomerular Filtration Rate 133 (>60); Estimated Creatinine Clearance 212.23 ml/min (50-250); Globulin 3.7 g/dL (2.2-4.2); Glucose 90 mg/dL (70-99); Potassium 3.6 mmol/L (3.3-5.1); Protein, Total 7.2 g/dL (5.9-8.4); Sodium Level 136 mmol/L (133-145); Total Bilirubin 0.33 mg/dL (0.00-1.30)
[2024-10-09 08:58] LABS: Amphetamine Urine NEGATIVE (<1000 ng/mL); Barbiturate Urine NEGATIVE (< 200 ng/mL); Benzodiazepine Urine NEGATIVE (< 200 ng/mL); Buprenorphine Urine NEGATIVE (< 200 ng/mL); Cocaine Urine NEGATIVE (< 300 ng/mL); Fentanyl, Urine NEGATIVE; Methadone Urine NEGATIVE (< 300 ng/mL); Opiates Urine NEGATIVE (< 300 ng/mL); Oxycodone, Urine NEGATIVE (< 100 ng/mL); PCP Urine NEGATIVE (< 25 ng/mL); THC Urine PRESUMPTIVE POSITIVE (< 50 ng/mL)
[2024-10-09 10:56] VITALS: PULSE 87; RESP 18; O2SAT 98
[2024-10-09 11:03] LABS: Color, Urine Yellow (Yellow); Glucose, Dipstick NEGATIVE (Normal); Urine Bilirubin Dipstick 3 mg/dL (Negative); Urine Clarity Sl Cldy (Clear)
[2024-10-09 11:04] LABS: Nitrite-Dipstick Negative (Negative); Occult Blood-Urine 10 /ul (Negative); Protein-Dipstick 30 mg/dl (Negative)
[2024-10-09 11:05] LABS: Leukocyte Esterase-Dipstick 100 /ul (Negative)
[2024-10-09 11:07] LABS: Ketone-Dipstick 150 mg/dl (Negative)
[2024-10-09 11:18] LABS: Bacteria 2+ /hpf (None Seen); Squamous Epithelial Cells - UA 5-10 SEEN /hpf (5-10)
[2024-10-09 11:19] LABS: Red Blood Cells-Urine 0-5 SEEN /hpf (0-5); White Blood Cells 10-25 SEEN /hpf (0-5)
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
== END 2024-10-09 11:00 | disposition home or self-care (01) ==
PROVIDERS: Emergency Provider Emergency Medicine; PCP Family Medicine; Visit Provider Emergency Medicine
DX: O99.343 Other mental disorders complicating pregnancy, third trimester (principal); O99.891 Other specified diseases and conditions complicating pregnancy; F32.A Depression, unspecified; R45.851 Suicidal ideations; Z79.899 Other long term (current) drug therapy; Z3A.28 28 weeks gestation of pregnancy
CPT/HCPCS: 80048; 80076; 80307; 81001; 82077; 85025; 99285

== ENCOUNTER → 2024-10-21 | Outpatient (CLI) | payer MEDICAID, SELFPAY ==
[2024-10-21 14:58] LABS: Absolute Lymphocyte Count 2.85 X10^3/uL (0.83-4.51); Absolute Neutrophil Count 7.6 X10^3/uL (2.0-7.7); Basophil# 0.03 X10^3/uL; Basophil% 0.3 % (0-1); Eosinophil# 0.16 X10^3/uL; Eosinophils% 1.4 % (0-5); Hematocrit 29.3 % (37-47); Hemoglobin 9.7 g/dL (12.0-15.0); Lymphocyte # 2.85 X10^3/ul (0.83-4.51); Lymphocyte % 24.9 % (19-41); Mean Corp Hgb Conc 33.1 g/dL (32-36); Mean Corpuscular Hgb 28.5 pg (27.0-32.0); Mean Corpuscular Volume 86.2 fL (81-99); Mean Platelet Vol. 10.5 fl (6.2-12.0); Monocyte# 0.69 X10^3/uL; NRBC Flagged by Analyzer 0 % (0-5); Neutrophil # 7.64 X10^3/uL (2.7-7.7); Neutrophil % 66.8 % (47-70); Platelet Count 303 K/mm3 (150-450); RBC Distribution Width CV 13.7 % (11.6-14.6); RBC Distribution Width SD 42.9 fl (35.1-43.9); White Blood Count 11.4 K/mm3 (4.4-11.0)
[2024-10-21 15:18] LABS: AST(SGOT) 23 U/L (<=31); Alanine Aminotransfer ALT/SGPT 20 U/L (<=34); Albumin, Serum 3.3 g/dL (3.5-5.0); Alkaline Phosphatase 115 U/L (35-104); Anion Gap 10 (5-15); BUN 3 mg/dL (4-19); BUN/Creat Ratio 6.6 RATIO (10-20); Calcium,Total 8.6 mg/dL (7.6-11.0); Carbon Dioxide 19.4 mmol/L (21.0-32.0); Chloride 106 mmol/L (98-108); Creatinine, Serum 0.53 mg/dL (0.70-1.20); EST Glomerular Filtration Rate 131 (>60); Globulin 3.4 g/dL (2.2-4.2); Glucose 126 mg/dL (70-99); Glucose Challenge Gest 1H 50g 126 mg/dL (70-140); Potassium 3.4 mmol/L (3.3-5.1); Protein, Total 6.7 g/dL (5.9-8.4); Sodium Level 136 mmol/L (133-145); Total Bilirubin 0.21 mg/dL (0.00-1.30)
[2024-10-21 15:26] LABS: Syphilis Antibodies Nonreactive (Nonreactive)
[2024-10-23 13:29] LABS: HIV Nonreactive (Nonreactive)
== END | disposition home or self-care (01) ==
LOC: BWCLAB 14:09
PROVIDERS: Obstetrics & Gynecology; PCP Family Medicine; Visit Provider Advanced Practice Midwife
DX: Z34.90 Encounter for supervision of normal pregnancy, unspecified, unspecified trimester (principal); Z87.59 Personal history of other complications of pregnancy, childbirth and the puerperium
CPT/HCPCS: 36415; 80053; 82950; 85025; 86703; 86780

== ENCOUNTER 2024-10-22 08:00 | Outpatient (RCR) | payer MEDICAID, SELFPAY ==
--- NOTE | 2024-10-22 10:10 | BH.SGPN.GN ---
Behaviors/Verbalizations/Mental Status: [] Pt alert and oriented, casually dressed and groomed. Eye contact good. Motor activity appropriate. Speech within normal limits. Mood: depressed. Affect: congruent. Thoughts linear, logical, no signs of hallucinations or delusions. Client Response/Progress/Benefit: [] Pt was an active participate during group discussions. Attentive during psychoeducation on self-sabotage and its impact on mental health. Worked with peers to identify reasons individuals perform self-sabotage behaviors (fear of change, habitual, low self-esteem,confirm mistaken beliefs, false sense of control). Pt identified the forms of self-sabotage that impact their mental health the most. Seemed to benefit from gaining awareness about the self-sabotage. Pt to continue IOP tx to maintain safety, prevent decompensation, stabilize mood, increase healthy coping, and improve functioning Narrative Note: []
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
--- NOTE | 2024-10-22 15:21 | BH.MTP ---
Master Treatment Plan Patient Information Program Physician:: Dr. Franklin Primary Therapist:: Marlen Meneses, [facility] Psychiatric Diagnoses Psychiatric Diagnoses:: 1. Major depressive disorder, recurrent, severe without psychosis 2. Cannot rule out bipolar, NOS 3. Strong cluster B traits 4. Generalized anxiety disorder 5. PTSD 6. 30-week intrauterine 7. Primary support issues Diagnosis Code(s):: F33.2 Estimated LOS Estimated LOS (in weeks):: 6 Problem/Goal #1 Problem/Goal #1 Stated Goal:: Client will reduce depressive symptoms and anhedonia due to Major Depressive Disorder through Intensive Outpatient Program. Description of Barriers: Potential barriers to treatment include negative thoughts, limited support, distortions, and low distress tolerance. Functional Impact: Patient reported history of depression, mood instability and anxiety who was referred to the [facility] behavioral health IOP after crisis assessment in the emergency room on October 09, 2024 where she presented with depression and suicidal ideation. The patient posted a message on social media that she wished she was and the police were contacted and brought the patient to the emergency room. Patient admitted posting the message and states that she was overwhelmed in the moment and just wished everything would stop. Stressors include her father's on September 18, 2024, being 30 weeks with her second baby, financial stress, and a very toxic relationship with her unborn child's father that has now ended recently. The patient feels she has not had time to grieve the loss of her father over 1 month ago. Sleep is about 4 hours a night since the of her father and she is not napping during the day. She does endorse guilt, sadness, irritability, anxiety and worry. She states that twice a month she feels that she gets manic and that lasts less than or equal to 1 week and she spends any money she has and feels extra happy and talks more than usual. Objectives Objective #1: Stated Objective: Client will learn and utilize 2-3 healthy coping strategies to manage depressive symptoms. Interventions: Therapist will utilize CBT techniques to assist client with understanding the connection between thoughts, feelings and behaviors. Education will be provided on behavioral activation. Therapist will assist client in learning internal coping strategies to manage depressive symptoms, along with helping client identify triggers. Discharge Criteria: Client will have achieved this goal when can verbalize and has practiced at least 2 healthy coping strategies that successfully manage depressive symptoms. Target Date: 12/03/24 Review Date: 11/13/24 Objective #2: Stated Objective: Client will identify and replace 2-3 negative thinking patterns that reinforce depressive symptoms. Interventions: Therapist will assist client in developing an awareness of the cognitive messages that reinforce depressive thinking. Therapist will also assist client in challenging negative thinking patterns. Discharge Criteria: Client will have achieved this goal when can identify at least 2 negative thinking patterns, replace negative thinking with more positive, affirmative messages. Target Date: 12/03/24 Review Date: 11/13/24 Problem/Goal #2 Problem/Goal #2 Stated Goal:: Reduce overall frequency, intensity, and duration of the anxiety so that daily functioning is not impaired. Description of Barriers: Potential barriers to treatment include negative thoughts, limited support, distortions, and low distress tolerance. Functional Impact: Patient reported history of depression, mood instability and anxiety who was referred to the [facility] behavioral health IOP after crisis assessment in the emergency room on October 09, 2024 where she presented with depression and suicidal ideation. The patient posted a message on social media that she wished she was and the police were contacted and brought the patient to the emergency room. Patient admitted posting the message and states that she was overwhelmed in the moment and just wished everything would stop. Stressors include her father's on September 18, 2024, being 30 weeks with her second baby, financial stress, and a very toxic relationship with her unborn child's father that has now ended recently. The patient feels she has not had time to grieve the loss of her father over 1 month ago. Sleep is about 4 hours a night since the of her father and she is not napping during the day. She does endorse guilt, sadness, irritability, anxiety and worry. She states that twice a month she feels that she gets manic and that lasts less than or equal to 1 week and she spends any money she has and feels extra happy and talks more than usual. Objectives Objective #1: Stated Objective: Client will learn and implement 2-3 calming skills to reduce overall anxiety and manage anxiety symptoms. Interventions: Therapist and group sessions will help client identify physiological warning signs of anxiety, increase awareness of thoughts that increase anxiety, and identify behaviors that reinforce anxious symptoms. Group and individual counseling will teach client calming skills to help manage anxious symptoms. Discharge Criteria: Client will have achieved this goal when can verbalize at least 2 calming skills and reports skills successfully help reduce anxious symptoms. Target Date: 12/03/24 Review Date: 11/13/24 Objective #2: Stated Objective: Client will identify 2-3 anxiety triggers and 2 coping skills to use when feeling anxious. Interventions: Therapist will assist client in exploring what triggers anxiety and teach client coping strategies to effectively manage anxiety symptoms. Discharge Criteria: Client will have met this goal when can identify at least 2 triggers to anxiety and verbalize two healthy ways to cope with feelings of anxiety. Target Date: 12/03/24 Review Date: 11/13/24
--- NOTE | 2024-10-23 09:05 | BH.SGPN.GN ---
Behaviors/Verbalizations/Mental Status: [] Eye contact is good. Motor activity is appropriate. Appearance is casual. Speech is Appropriate. Mood is depressed and anxious. Affect is congruent. Thoughts are linear and logical. No evidence of psychosis. Reviewed daily check in sheet and no reports of suicidal ideation. Client Response/Progress/Benefit: [] Pt participated at times during the group discussions. Attentive. Daily symptom tracker notes 09/18 for depression and anxiety. Pt elaborated on recent stressors and grief which are significantly impacting her mental health. ?I?m really missing my dad right now?. Insight that her overall mental health has improved since starting IOP mainly related to support, routine, and distraction. ?I?m anxious and good at the same time?. Progress noted. Benefited from group support, encouragement, and feedback. Will continue in IOP to prevent decompensation, stabilize mood, improve functioning, and increase healthy coping. Narrative Note: []
--- NOTE | 2024-10-23 10:10 | BH.SGPN.GN ---
Behaviors/Verbalizations/Mental Status: []Pt alert and oriented, casually dressed and groomed. Eye contact fair. Motor activity appropriate. Speech within normal limits. Affect congruent, mood dysthymic. Thoughts linear, logical, no signs of hallucinations or delusions. Client Response/Progress/Benefit: [] Pt engaged and actively participating in discussion, taking notes. Pt attentive during psychoeducation about the window of tolerance and noted personal connections. Group identified what contributes to low distress tolerance. The group gained awareness of the three zones of tolerance and pt was able to identify what they look like in each zone. Pt completed provided worksheet in group by identifying what signs she exhibits when in the hyperarousal and window of tolerance zones. Pt chose to not share what wrote down with the group. Pt appeared to benefit from psychoeducation on distress tolerance and practicing self-reflection. Pt will continue IOP tx to increase consistent use of healthy coping skills, challenge negative thoughts, and prevent decompensation. Narrative Note: []
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
--- NOTE | 2024-10-23 12:34 | BH.DR.ITP ---
Initial Treatment Plan Patient Information Visit Information: ADMISSION DATE: EXPECTED LOS: 4-6 weeks Problems/Symptoms Problem #1:: Mood instability Symptom:: Sadness, irritability, guilt, hopelessness, anhedonia, recent suicidal ideation, recent passive thoughts of , biological disruption of sleep Problem #2:: Anxiety Symptom:: Worry, rumination, avoidance, flashbacks and trauma triggers
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
--- NOTE | 2024-10-24 09:00 | BH.SGPN.GN ---
Behaviors/Verbalizations/Mental Status: [] Client alert and oriented, casual appearance. Eye contact fair. Motor activity appropriate. Speech within normal limits. Affect congruent, mood dysthymic. Thoughts linear, logical, no signs of hallucinations or delusions. Reviewed client's symptom tracker, no risk for suicidal ideation, plan, or intent. Client Response/Progress/Benefit: [] Client responded well to session AEB listening to others and sharing thoughts/feelings. Client reported mental health positive as making it to work by using opposite action. Client stated additional mental health positive as making it to IOP today. Client stated current stressor as missing her dad a lot today. Appeared to benefit from support from peers. Will continue IOP tx to improve daily functioning, increase consistent use of healthy coping skills, and prevent decompensation.
--- NOTE | 2024-10-24 10:15 | BH.SGPN.GN ---
Behaviors/Verbalizations/Mental Status: [] Eye contact is good. Motor activity is appropriate. Appearance is casual. Speech is Appropriate. Mood is anxious and depressed. Affect is flat. Thoughts are linear and logical. No evidence of psychosis. Client Response/Progress/Benefit: [] Pt responded well to session AEB participated at times throughout group. Pt was attentive throughout group activity discussing famous individuals and how they overcame failure to be successful. Pt helped group define fear of failure as well as how it can impact mental health and relationships. Participated in experiential activity and worked with group members to problem solve. Appeared to benefit from increased knowledge of what causes fear of failure and how it impacts people. Will continue IOP tx to prevent decompensation, maintain safety, improve daily functioning and learn healthy coping skills. Narrative Note: []
--- NOTE | 2024-10-24 11:15 | BH.SGPN.GN ---
Behaviors/Verbalizations/Mental Status: []Pt alert and oriented, casually dressed and groomed. Eye contact good. Motor activity appropriate. Speech within normal limits. Affect congruent, mood anxious. Thoughts linear, logical, no signs of hallucinations or delusions. Client Response/Progress/Benefit: [] Pt responded well to session, engaged in the experiential activity and attentive throughout group processing. Interactive discussion with peers on what FOF has kept them from which included; taking jobs that she has truly wanted and setting boundaries in toxic relationships. Pt completed fear of failure worksheet and was able to identify thoughts and behaviors that reinforce personal fear of failure. Pt participated in small group discussion regarding strategies to overcome fear of failure. Identified struggling most with avoiding too much and feeling responsible for others? emotions Pt will work on these by practicing ?paying attention to red flags and using opposite action.? Appeared to benefit from increased knowledge of strategies to combat fear of failure and gaining self-awareness. Pt will continue IOP tx to prevent decompensation, improve daily functioning, and gain healthy coping skills. Narrative Note: []
--- NOTE | 2024-10-29 09:00 | BH.SGPN.GN ---
Behaviors/Verbalizations/Mental Status: [] Eye contact is good. Motor activity is appropriate. Appearance is casual. Speech is Appropriate. Mood is depressed and anxious. Affect is congruent. Thoughts are linear and logical. No evidence of psychosis. Reviewed daily check in sheet and no reports of suicidal ideations or intent. Client Response/Progress/Benefit: [] Pt participated when prompted. Attentive. Daily symptom tracker notes 4/5 for depression and 3/5 for anxiety. Able to identify mental health wins which she elaborated on. ? I got the new job?. Shared psychosocial stressors related to her ex-bf who is ?back in town?. Hypervigilant that he is going to show up at her house. She is pursuing a PO. Feeling both ?anxious and happy?. Progress noted. Benefited from group support, encouragement, and feedback. Will continue in IOP to maintain safety, stabilize mood, and increase healthy coping. Narrative Note: []
--- NOTE | 2024-10-29 10:15 | BH.SGPN.GN ---
Behaviors/Verbalizations/Mental Status: [] Pt alert and oriented, casually dressed and groomed. Eye contact good. Motor activity appropriate. Speech within normal limits. Affect constricted. mood euthymic. Thoughts linear, logical, no signs of hallucinations or delusions. Client Response/Progress/Benefit: [] Pt was an engaged participant AEB listening attentively to others, taking notes, and providing feedback in group discussions. Attentive during psychoeducation AEB by note taking. Pt worked along with peers in groups to define inappropriate guilt and appropriate guilt. Group worked together to provide examples of both inappropriate and appropriate guilt. Group identified a car accident and snapping at kids as appropriate guilt examples. Group identified setting a boundary and being a victim as having inappropriate guilt about. Pt able to connect impact inappropriate guilt can have on MH and overall functioning. Benefited from increased awareness of guilt and the differences between appropriate and inappropriate guilt. Pt to continue IOP tx to prevent decompensation, gain healthy coping skills, and increase overall functioning. Narrative Note: []
--- NOTE | 2024-10-29 11:15 | BH.SGPN.GN ---
Behaviors/Verbalizations/Mental Status: [] Pt alert and oriented, casually dressed and groomed. Eye contact good. Motor activity appropriate. Speech within normal limits. Affect constricted, mood euthymic. Thoughts linear, logical, no signs of hallucinations or delusions. Client Response/Progress/Benefit: [] Pt was an semi engaged participant AEB listening attentively to others and providing some input throughout group. Pt along with group members, identified strategies to manage inappropriate guilt. Identified a personal example of inappropriate guilt as ?not doing enough for her kids.? Pt wants to work on combatting inappropriate guilt by identifying thoughts that lead to that guilt.? Pt seemed to benefit from learning about strategies to manage appropriate and inappropriate guilt. Pt to continue IOP tx to prevent decompensation, gain healthy coping skills, and increase self-confidence. Narrative Note: []
--- NOTE | 2024-10-30 09:00 | BH.SGPN.GN ---
Behaviors/Verbalizations/Mental Status: [] Pt alert and oriented, casually dressed and groomed. Eye contact good. Motor activity appropriate. Speech within normal limits. Affect congruent, mood content. Thoughts linear, logical, no signs of hallucinations or delusions. Reviewed pt?s symptom tracker, no risk for suicidal ideation, plan, or intent 10/30/24. Client Response/Progress/Benefit: []Pt was an active participant in group discussions. Attentive. Able to identify mental health wins including making dinner for her kids last night as well as continuing with personal hygiene routine. Pt's stressor today is the upcoming as it will be her first without her father. Pt is feeling calm? this morning. Pt receptive to feedback from peers which pt reported was helpful. Progress noted. Benefited from group support, encouragement, and feedback. Will continue IOP tx to promote use of healthy coping skills, increase self-care, and improve mood stability. Narrative Note: []
--- NOTE | 2024-10-30 10:13 | BH.SGPN.GN ---
Behaviors/Verbalizations/Mental Status: [] Pt alert and oriented, casually dressed and groomed. Eye contact fair. Motor activity appropriate. Speech within normal limits. Affect congruent, mood euthymic. Thoughts linear, logical, no signs of hallucinations or delusions. Client Response/Progress/Benefit: [] Client receptive of session, actively engaged throughout AEB taking notes and providing input and examples to discussion. Appeared to connect with group topic of cognitive distortions and the impact of thought patterns on mental health, coping behaviors, and relationships. Client appeared to benefit from gaining insight on distorted thinking patterns and how this impacts overall mental health.Will continue IOP tx to increase functioning and improve mood stability. Narrative Note: []
--- NOTE | 2024-10-31 10:10 | BH.SGPN.GN ---
Behaviors/Verbalizations/Mental Status: [] Client alert and oriented, casually dressed and groomed. Eye contact good. Motor activity appropriate. Speech within normal limits. Affect congruent, mood euthymic. Thoughts linear, logical, no signs of hallucinations or delusions Client Response/Progress/Benefit: [] Client was an active participant, AEB taking notes and providing input in group discussions and activities. Attentive during psychoeducation. Client engaged during interactive discussion in which the group defined self-care and discussed its benefits. Group discussed barriers to engaging in self-care. Client identified personal barrier of feeling like a bad mom if she takes self care. Client participated in small groups where they worked to identify common self-care ?myths?. Benefited from increased awareness of self-care, its benefits, and the consequences of not utilizing self-care strategies. Will continue IOP tx to prevent decompensation, promote healthy coping skill application, and continue to improve mood stability. Narrative Note: []
--- NOTE | 2024-10-31 11:10 | BH.SGPN.GN ---
Behaviors/Verbalizations/Mental Status: [] Client alert and oriented, neatly dressed and groomed. Eye contact good. Motor activity appropriate. Speech within normal limits. Affect congruent, mood euthymic. Thoughts linear, logical, no signs of hallucinations or delusions. Client Response/Progress/Benefit: [] Client engaged participant AEB completing self-assessment worksheet and providing input throughout discussion. Client completed worksheet identifying current self-care practices and what self-care activities client wants to start using. Client selected financial self-care to begin practicing more consistently. Client plans to do this by budgeting more. Appeared to benefit from completing the self-care evaluation and gaining insights into current self-care practices, as well as identifying areas in which client would like to improve upon. Client will continue IOP tx to prevent decompensation, increase emotional regulation skills, and improve daily functioning. Narrative Note: []
--- NOTE | 2024-10-31 13:16 | BH.MDN ---
Multi-Disciplinary Note Note 45-min Individual: Time Started:: 09:20 Date: 10/31/24 Purpose of session/treatment goals addressed:: Purpose of session discuss patient symptomology, build rapport and establish goals in treatment Eye Contact:: Good Motor Activity:: Appropriate Appearance:: Casual Speech:: Appropriate Mood:: Euthymic Affect:: Congruent Thoughts:: Linear Staff Interventions:: thought challenging, rapport building, strengths perspective and goal setting Client Response:: Client engaged and open to meeting with this therapist while primary therapist is out of the office. Client shared she is doing well today and feeling happier compared to earlier in the week. Client contributed part of it to getting paid yesterday with ability to spend extra money. Client reported nervousness that she's going to be a single mom for the first time with a . Client shared that she has anger towards her mother from the past that has resulted in conflict with her mom when addressing it. Client open to a conversation to plan with mom to ensure emotional support after baby is born especially with client experiencing depression in the past. Client identified mom as primary source of support and and is now living with her permanently. Client and this therapist reviewed distress tolerance skills to utilize, especially when experiencing anger. Client seemed receptive to trying radical acceptance and utilizing the acronym ACCEPTS for distraction. This therapist and client reviewed symptomology of borderline personality disorder. Client reports connecting to majority of the symptoms. Client shared she avoids abandonment by blocking people if they read her texts and do not reply, has gotten violent in the past when angry, history of self harm with a past suicide attempt, has drove recklessly (not with kids in the car), worries others are judging her which leads her to isolate, feeling empty even when around others, and impulsively, especially with spending money. Risks/Concerns:: Denies active SI, plan, or intent. Does not present as imminent danger to herself. Protective factors reported. Future-oriented. Progress Toward Goals/Plan:: Some progress noted with client receptive to program and indicating she is gaining a lot so far from group material. Client reported feeling happier and is motivated in her treatment. Will continue in IOP level of care to maintain safety, increase healthy coping, and prevent decompensation. Time Stopped:: 10:10
--- NOTE | 2024-11-05 10:10 | BH.SGPN.GN ---
Behaviors/Verbalizations/Mental Status: []Pt alert and oriented, causally dressed and groomed. Eye contact good. Motor activity appropriate. Speech within normal limits. Affect congruent, mood anxious. Thoughts linear, logical, no signs of hallucinations or delusions. Client Response/Progress/Benefit: [] Pt was attentive during psychoeducation and participated in group activity. Group discussed what contributes to a person?s perspective and how perspective can positively or negatively impact mental health treatment. Pt reflected on their perspective today and how it is impacting them. ?Pt appeared to benefit from increasing awareness of different perspectives and how they can affect mental health. Pt will continue IOP tx to increase healthy coping skills, improve daily functioning, and prevent decompensation.
--- NOTE | 2024-11-05 11:15 | BH.SGPN.GN ---
Behaviors/Verbalizations/Mental Status: []Pt alert and oriented, casually dressed and groomed. Eye contact good. Motor activity appropriate. Speech within normal limits. Affect constricted, mood depressed. Thoughts linear, logical, no signs of hallucinations or delusions. Client Response/Progress/Benefit: []Pt was attentive and contributed to group discussion. Pt worked with group to identify strategies that can help with challenging negative perspective. Pt stated they can practice using self-compassion as a way to challenge negative perspective. Pt completed strengths exploration worksheet, identifying personal strengths. Pt able to acknowledge how these strengths are helping pt and can continue to help pt in mental health journey. Pt identified wanting to work on leaning on strength of open-mindedness to see the positives in a stressful situation. Benefited from identifying personal strengths and strategies for enhancing use of identified strengths. Pt will continue IOP tx to continue improve functioning, distress tolerance, mood stability, and prevent decompensation. Narrative Note: []
--- NOTE | 2024-11-06 10:05 | BH.SGPN.GN ---
Behaviors/Verbalizations/Mental Status: []Patient was alert and oriented, casually dressed and groomed. Eye contact fair. motor activity appropriate. speech within normal limits. Affect congruent, mood anxious. Thoughts linear, logical, no signs of hallucinations or delusion. Client Response/Progress/Benefit: [] Pt participated in the group discussions AEB providing input, nodding and taking notes. Attentive during psychoeducation Goal Setting. Participated during the discussion on common barriers. Pt worked with group to identify common barriers to goal setting. Group also identified benefits of goals as sense of purpose, improved self-confidence, more motivation for other goals, sense of accomplishment, and improved mental health. Pt identified personal benefits to goal setting. Benefited from increased awareness of mental health benefits of goals as well as psychoeducation on SMART goal criteria. Will continue in IOP to improve distress tolerance, challenge distortions, and prevent decompensation.
--- NOTE | 2024-11-06 11:00 | BH.SGPN.GN ---
Behaviors/Verbalizations/Mental Status: []Pt alert and oriented, casually dressed and groomed. Eye contact good. Motor activity appropriate. Speech within normal limits. Affect constricted, mood anxious and depressed. Thoughts linear, logical, no signs of hallucinations or delusions. Client Response/Progress/Benefit: [] Pt was engaged during discussion and experiential activity. Completed the worksheet challenging them to develop a personal SMART goal. Pt chose a SMART goal to talk to my mom this week about my boundaries and what I can handle.? Believes this goal will benefit her by reducing anger and improving her mood. Identified obstacles such as wanting to avoid and not liking unwanted attention. Pt able to come up with solutions for barriers. Benefited from this group by developing a short-term SMART goal related to mental health. Will continue IOP to prevent decompensation, improve daily functioning, and gain healthy coping skills. ?? Narrative Note: []
--- NOTE | 2024-11-06 12:04 | PCM.BH.PN ---
Progress Note Progress Note: History of Present Illness/Interim History: The patient is a 24-year-old -Thai female with a history of depression, mood instability and anxiety who is seen in follow-up at the [facility] behavioral health IOP. The patient is also 32 weeks and was last seen 2 weeks ago. The patient states that she is still having some emotional stress and mood fluctuations due to birthdays and [place] recently. was the first holiday without her father which led to crying and feeling a sense of loss. She feels that she is learning valuable skills in the group sessions of the IOP and feels she is slowly improving despite not taking medications. She is enjoying her new job also. She still has some irritability, anxiety and some depression at times. Sleep has been an issue lately with her averaging 4 to 5 hours a night and she has been tired the next day. She denies passive thoughts of , suicidal ideation, plan for suicide, homicidal ideation, hallucinations or delusions. Current Psychiatric Medications: [] None except vitamin Mental Status Examination: [] Patient is a 24-year-old -Thai female who is 32 weeks and appears normal for stated age and is casually dressed and groomed with good hygiene. She has blue hair dye in part of her hair. She is cooperative and pleasant during the interview. She has no psychomotor agitation or retardation. Eye contact is good and speech is normal rate and rhythm and fluent with no pressure. Mood is depressed and anxious. Affect is full and normal. Thought processes goal-directed and organized. Thought content: There is no evidence of passive thoughts of , suicidal ideation, plan for suicide, homicidal ideation, hallucinations or delusions. Reality testing is intact. Judgment is intact. Insight is fair and improving. Impulsivity is moderate to high. Diagnoses: [] 1. Major depressive disorder, recurrent, severe without psychosis 2. Cannot rule out bipolar, NOS 3. Strong cluster B traits 4. Generalized anxiety disorder 5. PTSD 6. 32-week intrauterine 7. Primary support issues Plan: [] The patient will continue the IOP and behavioral health at [facility] as the structure, support, education and group therapy will hopefully prevent worsening of the patient's symptoms that could require hospitalization. The patient is again offered medication but refuses medications because she does not want to take any during the even though she understands that the risk of her having a significant mood disorder during is higher than the risk from the medication. She agrees to let us know if symptoms worsen and if she changes her mind and agrees to try any medication. She also agrees to take medication immediately due to her history of severe depression and suicide attempt after her last . She will continue to follow-up with her outpatient providers and I will see the patient in follow-up in 2 weeks.
--- NOTE | 2024-11-06 12:04 | PCM.BH.PN ---
Progress Note Progress Note: History of Present Illness/Interim History: The patient is a 24-year-old -[place]oz[place] female with a history of depression, mood instability and anxiety who is seen in follow-up at the [facility] behavioral health IOP. The patient is also 32 weeks and was last seen 2 weeks ago. The patient states that she is still having some emotional stress and mood fluctuations due to birthdays and [place] recently. was the first holiday without her father which led to crying and feeling a sense of loss. She feels that she is learning valuable skills in the group sessions of the IOP and feels she is slowly improving despite not taking medications. She is enjoying her new job also. She still has some irritability, anxiety and some depression at times. Sleep has been an issue lately with her averaging 4 to 5 hours a night and she has been tired the next day. She denies passive thoughts of , suicidal ideation, plan for suicide, homicidal ideation, hallucinations or delusions. Current Psychiatric Medications: [] None except vitamin Mental Status Examination: [] Patient is a 24-year-old -[place] female who is 32 weeks and appears normal for stated age and is casually dressed and groomed with good hygiene. She has blue hair dye in part of her hair. She is cooperative and pleasant during the interview. She has no psychomotor agitation or retardation. Eye contact is good and speech is normal rate and rhythm and fluent with no pressure. Mood is depressed and anxious. Affect is full and normal. Thought processes goal-directed and organized. Thought content: There is no evidence of passive thoughts of , suicidal ideation, plan for suicide, homicidal ideation, hallucinations or delusions. Reality testing is intact. Judgment is intact. Insight is fair and improving. Impulsivity is moderate to high. Diagnoses: [] 1. Major depressive disorder, recurrent, severe without psychosis 2. Cannot rule out bipolar, NOS 3. Strong cluster B traits 4. Generalized anxiety disorder 5. PTSD 6. 32-week intrauterine 7. Primary support issues Plan: [] The patient will continue the IOP and behavioral health at [facility] as the structure, support, education and group therapy will hopefully prevent worsening of the patient's symptoms that could require hospitalization. The patient is again offered medication but refuses medications because she does not want to take any during the even though she understands that the risk of her having a significant mood disorder during is higher than the risk from the medication. She agrees to let us know if symptoms worsen and if she changes her mind and agrees to try any medication. She also agrees to take medication immediately due to her history of severe depression and suicide attempt after her last . She will continue to follow-up with her outpatient providers and I will see the patient in follow-up in 2 weeks.
--- NOTE | 2024-11-06 15:41 | BH.MDN ---
Multi-Disciplinary Note Note 45-min Individual: Time Started:: 09:30 Date: 11/06/24 Purpose of session/treatment goals addressed:: Purpose of session was to address goals 1 and 2 from MTP. Eye Contact:: Good Motor Activity:: Appropriate Appearance:: Casual Speech:: Appropriate Mood:: Depressed Affect:: Constricted Thoughts:: Linear, Logical and No evidence of hallucinations/delusions noted Staff Interventions:: thought challenging, CBT techniques, rapport building, strengths perspective, goal setting, taught coping skills and other (discussed healthy vs unhealthy relationships) Client Response:: Client reported the last couple of days she has been feeling more down and depressed. Client stated last night she wanted to go to her boyfriend's house because she was feeling sad and wanted support. However, client shared her mom was giving me a hard time about her leaving for the night. client stated she ultimately didn't go to her boyfriends because her mom made it not possible with every excuse her mom was giving her. Client stated she has been stressed at home because her 3 year old daughter and client's 8 year old sister are not getting along, which makes the home environment tense. Client reported in addition to tension in the home she also has been struggling with getting enough sleep for awhile. Client noted last night she only got 3 hours of sleep. Client agreed with therapist it would be helpful to have a nighttime routine because currently she doesn't have one. Client stated she started this new relationship about one month ago, but noted she has known this man for over 5 years. Client has reported historically getting into unhealthy relationships. Client and therapist explored characteristics of what a healthy relationship looks like versus unhealthy. Client stated her previous boyfriends didn't have jobs, didn't have a car, and often engaged in love bombing at the start of the relationship. Client stated her current boyfriend has stable housing, a job, a car, and treats her with respect. Client stated she also has seen him treat his children's mothers with respect, which she noted is different then her previous relationships. Therapist reviewed behavior activation with client and discussed what activities she could engage in this weekend to help boost her mood. Risks/Concerns:: Denies suicidal ideation, plan, or intention to date. future oriented. Progress Toward Goals/Plan:: Limited progress noted. Client reported increased depressed mood last couple of days, increased psychosocial stress at home, and struggling with getting only 3 hours of sleep. Client and therapist reviewed importance of having a nighttime routine to help with sleep because limited sleep will negatively impact mood and increase agitation. Plan is for client to continue IOP to improve distress tolerance, decrease depression, and prevent decompensation. Time Stopped:: 10:10
--- NOTE | 2024-11-07 10:00 | BH.SGPN.GN ---
Behaviors/Verbalizations/Mental Status: []Eye contact is good. Motor activity is appropriate. Appearance is casual. Speech is Appropriate. Mood is dysthymic. Affect is congruent. Thoughts are linear and logical. No evidence of psychosis. Client Response/Progress/Benefit: []Pt was an active participant in group discussion. Engaged and attentive during psychoeducation and interactive discussion on coping skills, why people use unhealthy coping skills, how to replace unhealthy coping skills, and internal vs external coping skills. Attentive as peers came up with list of unhealthy coping skills. Pt reported personally, they tend to either isolate or distract with other things. Group discussed the effects of maladaptive coping skills on mental health. Benefited from increased understanding of unhealthy coping skills and the need for developing healthy internal and external coping skills. Actively participated during experiential group activity and was able to related this activity to group topic. Will continue in IOP to promote healthy thinking patterns, apply healthy coping skills, and promote mood stability. Narrative Note: []
--- NOTE | 2024-11-07 11:05 | BH.SGPN.GN ---
Behaviors/Verbalizations/Mental Status: [] Pt alert and oriented, casual in appearance. Eye contact good. Motor activity appropriate. Speech within normal limits. Affect congruent, mood euthymic. Thoughts linear, logical, no signs of hallucinations or delusions. Client Response/Progress/Benefit: [] Pt engaged participant AEB provided contributions during discussion, taking notes, and listening attentively to others. Engaged in the provided activity. Group discussed the different categories of coping skills which included distraction, emotional release, grounding, self-love, and thought challenging. Pt participated in creating a coping skills ?menu? from the different categories of coping skills. Pt's coping skill menu included: walking, writing, breathing techniques, affirmations, reflections. Appeared to benefit from increasing repertoire of healthy coping skills. Will continue IOP to promote healthy coping, challenge distortions, and prevent decompensation Narrative Note: []
--- NOTE | 2024-11-13 10:10 | BH.SGPN.GN ---
Behaviors/Verbalizations/Mental Status: [] Eye contact is good. Motor activity is appropriate. Appearance is casual. Speech is Appropriate. Mood is euthymic. Affect is congruent. Thoughts are linear and logical. No evidence of psychosis. Client Response/Progress/Benefit: [] Pt engaged participant AEB listening to others, engaging in activity, and providing feedback. Attentive during psychoeducation and provided insight into obstacles that impede mental wellness. Pt shared with group current mental health reality and desired mental health reality. Identified barriers to desired reality include: anxiety, avoidance, and over-thinking. Benefited from taking look at current mental health state and obstacles for progress. Pt to continue IOP tx to improve mood stability, increase functioning, and healthy thought patterns. Narrative Note: []
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
== END 2024-11-13 23:59 ==
LOC: BHIOP 08:00
PROVIDERS: PCP Family Medicine; Referring Provider Psychiatry & Neurology Psychiatry; Visit Provider Psychiatry & Neurology Psychiatry
DX: O99.343 Other mental disorders complicating pregnancy, third trimester (principal); F33.2 Major depressive disorder, recurrent severe without psychotic features; F41.1 Generalized anxiety disorder; F43.10 Post-traumatic stress disorder, unspecified
CPT/HCPCS: H2012; H2020; S9480; 90832; 90834; 90837

== ENCOUNTER 2024-11-14 07:35 | Outpatient (RCR) | payer MEDICAID, SELFPAY ==
--- NOTE | 2024-11-14 10:10 | BH.SGPN.GN ---
Behaviors/Verbalizations/Mental Status: [] Client alert and oriented, casually dressed and groomed. Eye contact good. Motor activity appropriate. Speech within normal limits. Affect congruent, mood euthymic. Thoughts linear, logical, no signs of hallucinations or delusions. Client Response/Progress/Benefit: [] Client responded well to session, contributing to discussion and engaged during the activity. Attentive during discussion on the quote. Group identified the benefits of change which included: increased confidence, better adaptability, improving mental health, and getting out of bad circumstances. Worked with the group to identify barriers to change, which included: uncomfortable emotions such as anxiety/depression, lack of motivation, external variables, and low self image. Client also reported reflecting on past negative experiences can keep people from making changes. Client participated along with group in activity where they identified and discussed the emotions related to change. Benefited from increased awareness and understanding of emotions, benefits, and barriers related to change. Will continue IOP tx to prevent decompensation and increase positive coping. Narrative Note: []
--- NOTE | 2024-11-14 11:10 | BH.SGPN.GN ---
Behaviors/Verbalizations/Mental Status: [] Client alert and oriented, casually dressed and groomed. Eye contact good. Motor activity appropriate. Speech within normal limits. Affect congruent, mood euthymic. Thoughts linear, logical, no signs of hallucinations or delusions. Client Response/Progress/Benefit: [] Client responded well to session, attentive. Did well to process activity and work with group to relate the strategies used to overcome barriers in the activity to managing change in own life. Client identified a change would like to make is making a relationship work without mental health getting in the way. Client stated currently in preparation stage. Reported would like to lean and recognize triggers. Appeared to benefit from identifying a small goal to work towards. Client will continue IOP tx to prevent decompensation, gain healthy coping skills, and improve daily functioning. Narrative Note: []
--- NOTE | 2024-11-20 10:10 | BH.SGPN.GN ---
Behaviors/Verbalizations/Mental Status: []Eye contact is good. Motor activity is appropriate. Appearance is casual. Speech is Appropriate. Mood is euthymic. Affect is congruent. Thoughts are linear and logical. No evidence of psychosis. Client Response/Progress/Benefit: [] Pt receptive to session AEB listening attentively to others and taking notes. Pt attentive and contributed throughout psychoeducation on the cognitive triangle and maintenance cycles. Pt engaged during group discussion reviewing the impact of daily activities and behaviors in either reinforcing unhealthy maintenance cycles and depression or assisting in reducing symptoms (?down? vs ?up? activities). Pt participated during interactive discussion in which pt identified their own common up activities (being around friends/family, showering, music, playing with her kid) and down activities (being around toxic people, not showering, cancelling plans). Appeared to benefit from increased awareness of current behaviors and impact these have on mental health. Will continue IOP to prevent decompensation, gain healthy coping skills. Narrative Note: []
--- NOTE | 2024-11-20 11:10 | BH.SGPN.GN ---
Behaviors/Verbalizations/Mental Status: []Pt alert and oriented, casually dressed and groomed. Eye contact fair. Motor activity appropriate. Speech within normal limits. Affect congruent, mood anxious. Thoughts linear, logical, no signs of hallucinations or delusions. Client Response/Progress/Benefit: [] Pt responded well to session, attentive and engaged in group discussions and activity. Actively engaged in continued discussion about up activities and down activities. Active participant as group discussed values and the benefits that knowing one's values can have on one's mental health. Client shared opposite action goal is to engage in therapy to help benefit her mental wellness. Benefited from increased awareness of their up activities and how incorporating their values into behavioral activation goals can positively impact mental health. Will continue in IOP to increase consistent use of healthy coping sklils, challenge distortions, and prevent decompensation.
--- NOTE | 2024-11-26 10:05 | BH.SGPN.GN ---
Behaviors/Verbalizations/Mental Status: [] Eye contact is good. Motor activity is appropriate. Appearance is casual. Speech is Appropriate. Mood is anxious and depressed. Affect is congruent. Thoughts are linear and logical. No evidence of psychosis. Client Response/Progress/Benefit: [] Pt was engaged and participating throughout, providing input and taking notes. Attentive during psychoeducation on anxiety and cognitive triangle. Participated in an interactive discussion on defining anxiety and identifying cognitive and physiological symptoms of anxiety. The group discussed helpful vs harmful anxiety. Pt identified their physical/physiological signs of anxiety which includes:sweating, increased heart rate, upset stomach, and restlessness Benefited from increased awareness and insight on anxiety and its impact. Will continue in IOP to prevent decompensation, increase healthy coping, and stabilize mood. . Narrative Note: []
--- NOTE | 2024-11-26 11:10 | BH.SGPN.GN ---
Behaviors/Verbalizations/Mental Status: []Pt alert and oriented, casually dressed and groomed. Eye contact good. Motor activity appropriate. Speech within normal limits. Affect congruent, mood stressed. Thoughts linear, logical, no signs of hallucinations or delusions. Client Response/Progress/Benefit: [] Pt was an active participant AEB pt providing input and listening attentively to peers. Attentive during psychoeducation on mindfulness coping skills and their impact on reducing anxiety and improving overall mental health wellness. Group was able to identify self-soothing and mind-based coping skills which included: 5-senses, meditation, deep breathing, TIPP, thought challenging, categories, and progressive muscle relaxation. Pt also participated with peers in practicing T.I.P.P during session. Pt would like to work on using more self-soothing statements to remind herself of the hardships she has overcome in the past. Appeared to benefit from increasing repertoire of anxiety reduction skills. Pt will continue IOP to gain healthy coping skills, reduce isolation, and increase self-care. Narrative Note: []
--- NOTE | 2024-11-27 10:10 | BH.SGPN.GN ---
Behaviors/Verbalizations/Mental Status: [] Eye contact is fair. Motor activity is appropriate. Appearance is casual. Speech is Appropriate. Mood is dysthymic. Affect is congruent. Thoughts are linear and logical. No evidence of psychosis. Client Response/Progress/Benefit: [] Pt engaged in session AEB listening attentively to others and providing input throughout. Pt engaged in activity, able to connect how it can be uncomfortable and difficult to practice acceptance when situations are out of one?s own control. Identified she is struggling with accepting current living situation. Worked with peer group to define acceptance and identify the benefits that acceptance can bring. Benefits included; reduce stuckness, reduced stress, helps one to focus on situations we can change, and decreased negative self-talk. Seemed to benefit from increased awareness of the meaning as well as the importance of acceptance. Will continue in IOP to increase consistent use of healthy coping skills, challenge negative thoughts, and prevent decompensation.
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
== END 2024-12-06 10:19 | disposition home or self-care (01) ==
LOC: BHIOP 07:35
PROVIDERS: PCP Family Medicine; Referring Provider Psychiatry & Neurology Psychiatry; Visit Provider Psychiatry & Neurology Psychiatry
DX: O99.343 Other mental disorders complicating pregnancy, third trimester (principal); F33.2 Major depressive disorder, recurrent severe without psychotic features; F41.1 Generalized anxiety disorder; F43.10 Post-traumatic stress disorder, unspecified
CPT/HCPCS: H2012

== ENCOUNTER → 2024-11-19 | Outpatient (CLI) | payer MEDICAID, SELFPAY ==
[2024-11-19 11:52] LABS: Absolute Lymphocyte Count 2.39 X10^3/uL (0.83-4.51); Absolute Neutrophil Count 4.5 X10^3/uL (2.0-7.7); Basophil# 0.03 X10^3/uL; Basophil% 0.4 % (0-1); Eosinophil# 0.18 X10^3/uL; Eosinophils% 2.3 % (0-5); Hematocrit 32.4 % (37-47); Hemoglobin 10.6 g/dL (12.0-15.0); Lymphocyte # 2.39 X10^3/ul (0.83-4.51); Lymphocyte % 30.1 % (19-41); Mean Corp Hgb Conc 32.7 g/dL (32-36); Mean Corpuscular Volume 85.5 fL (81-99); Mean Platelet Vol. 9.9 fl (6.2-12.0); Monocyte# 0.78 X10^3/uL; Monocyte% 9.8 % (0-10); NRBC Flagged by Analyzer 0 % (0-5); Neutrophil # 4.52 X10^3/uL (2.7-7.7); Neutrophil % 56.8 % (47-70); Platelet Count 290 K/mm3 (150-450); RBC Distribution Width CV 14.6 % (11.6-14.6); RBC Distribution Width SD 45.4 fl (35.1-43.9); Red Blood Count 3.79 M/mm3 (4.2-5.4)
== END | disposition home or self-care (01) ==
PROVIDERS: PCP Family Medicine; Referring Provider Advanced Practice Midwife; Visit Provider Advanced Practice Midwife
DX: O99.019 Anemia complicating pregnancy, unspecified trimester (principal); Z3A.00 Weeks of gestation of pregnancy not specified
CPT/HCPCS: 36415; 85025

== ENCOUNTER 2024-11-27 11:15 | Outpatient (CLI) | payer MEDICAID, SELFPAY ==
[2024-11-27] VITALS (11 sets, daily range): BP systolic 117–155; BP diastolic 61–90; PULSE 77–100; TEMP 36.7; O2SAT 99–100; BMI 49.5
[2024-11-27 12:36] LABS: Hematocrit 30.1 % (37-47); Hemoglobin 9.9 g/dL (12.0-15.0); Mean Corp Hgb Conc 32.9 g/dL (32-36); Mean Corpuscular Hgb 27.7 pg (27.0-32.0); Mean Corpuscular Volume 84.3 fL (81-99); Mean Platelet Vol. 9.5 fl (6.2-12.0); Platelet Count 272 K/mm3 (150-450); RBC Distribution Width CV 13.9 % (11.6-14.6); RBC Distribution Width SD 43.6 fl (35.1-43.9); Red Blood Count 3.57 M/mm3 (4.2-5.4); White Blood Count 8.8 K/mm3 (4.4-11.0)
[2024-11-27] MEDS: Acetaminophen 500 MG Tablet 1000 MG PO (12:37)
[2024-11-27 13:10] LABS: Protein, Urine (Random) 39.5 mg/dL (0.0-12.0); Protein:Creat Ratio 144 mg/g CRE (0-200)
[2024-11-27 13:20] LABS: AST(SGOT) 25 U/L (<=31); Alanine Aminotransfer ALT/SGPT 23 U/L (<=34); EST Glomerular Filtration Rate 132 (>60); Estimated Creatinine Clearance 213.26 ml/min (50-250)
[2024-11-27 13:41] LABS: LDH 199 U/L (84-246); Uric Acid 5.2 mg/dL (2.6-6.0)
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
== END 2024-11-27 14:15 | disposition home or self-care (01) ==
LOC: WPOUT 11:17 → WP 11:17
PROVIDERS: PCP Family Medicine; Referring Provider Obstetrics & Gynecology; Visit Provider Obstetrics & Gynecology
DX: O13.3 Gestational [pregnancy-induced] hypertension without significant proteinuria, third trimester (principal); O99.333 Smoking (tobacco) complicating pregnancy, third trimester; O99.013 Anemia complicating pregnancy, third trimester; O99.891 Other specified diseases and conditions complicating pregnancy; F17.210 Nicotine dependence, cigarettes, uncomplicated; R51.9 Headache, unspecified; O99.213 Obesity complicating pregnancy, third trimester; O99.613 Diseases of the digestive system complicating pregnancy, third trimester; K21.9 Gastro-esophageal reflux disease without esophagitis; O99.343 Other mental disorders complicating pregnancy, third trimester; F41.9 Anxiety disorder, unspecified; F32.A Depression, unspecified; O99.323 Drug use complicating pregnancy, third trimester; F12.10 Cannabis abuse, uncomplicated; Z3A.35 35 weeks gestation of pregnancy
CPT/HCPCS: 59025; 59050; 82565; 82570; 83615; 84156; 84450; 84460; 84550; 85027; 99221; G0378

== ENCOUNTER → 2024-11-29 | Outpatient (CLI) | payer MEDICAID, SELFPAY ==
--- NOTE | 2024-11-29 16:06 | US_ITS ---
PROCEDURE: BIOPHYSICAL PROF W/O NON STRES 11/29/2024 REASON FOR EXAM: OBESITY DURING TECHNIQUE: Transabdominal OB ultrasound for biophysical profile FINDINGS Single live intrauterine heart tones 145 beats per minute. Presentation is cephalic. JOHN 14.4 cm, largest fluid pocket 6.2 cm Posterior placenta appears within limits, not low-lying, grade 2. age by LMP 35 weeks 2 days, WES 01/01/2025 Amniotic Fluid Volume: 2/2 Gross body movements: 2/2 Tone: 2/2 Breathing movements: 2/2 Total: 8/8 US/Biophysical Prof W/O Non Stres IMPRESSION: BIOPHYSICAL PROFILE SCORE 8/8. Single live intrauterine heart tones 145 beats per minute. Reading Location: [id number]
== END | disposition home or self-care (01) ==
LOC: US 16:04
PROVIDERS: PCP Family Medicine; Referring Provider Advanced Practice Midwife; Visit Provider Advanced Practice Midwife
DX: O99.212 Obesity complicating pregnancy, second trimester (principal); Z3A.00 Weeks of gestation of pregnancy not specified
CPT/HCPCS: 76819

== ENCOUNTER 2024-12-01 13:37 | Outpatient (CLI) | payer MEDICAID, SELFPAY ==
[2024-12-01] VITALS (10 sets, daily range): BP systolic 101–122; BP diastolic 52–70; PULSE 68–86; RESP 14; TEMP 36.6; O2SAT 98; BMI 48.8
[2024-12-01 14:10] LABS: Hematocrit 31.2 % (37-47); Hemoglobin 10.4 g/dL (12.0-15.0); Mean Corp Hgb Conc 33.3 g/dL (32-36); Mean Corpuscular Hgb 27.7 pg (27.0-32.0); Mean Platelet Vol. 9.5 fl (6.2-12.0); Platelet Count 310 K/mm3 (150-450); RBC Distribution Width CV 13.8 % (11.6-14.6); RBC Distribution Width SD 41.8 fl (35.1-43.9); Red Blood Count 3.76 M/mm3 (4.2-5.4); White Blood Count 10.8 K/mm3 (4.4-11.0)
[2024-12-01 14:25] LABS: Protein, Urine (Random) 49.4 mg/dL (0.0-12.0); Protein:Creat Ratio 247 mg/g CRE (0-200)
[2024-12-01 14:27] LABS: AST(SGOT) 25 U/L (<=31); Alanine Aminotransfer ALT/SGPT 22 U/L (<=34); Creatinine, Serum 0.51 mg/dL (0.70-1.20); EST Glomerular Filtration Rate 132 (>60); Estimated Creatinine Clearance 207.16 ml/min (50-250); Uric Acid 5.7 mg/dL (2.6-6.0)
[2024-12-01] MEDS: Acetaminophen 500 MG Tablet 1000 MG PO (15:15)
--- NOTE | 2024-12-02 07:29 | OB.TRI.PN_ITS ---
Progress Notes Date of Service: 12/01/24 Progress Note: Patient presents for triage evaluation secondary to \headache FHT: 150-160 Moderate variability reactive no decelerations category I tracing [place]: no Contractions Assessment and plan: 34 weeks headache improved with tylenol normal labs and bps Reactive NST, reassuring maternal and status patient discharged to home to follow-up as scheduled. See problem list details for additional plan information. Laboratory Studies: Laboratory Tests 12/01/24 Range/Units 14:00 WBC 10.8 (4.4-11.0) K/mm3 RBC 3.76 L (4.2-5.4) M/mm3 Hgb 10.4 L (12.0-15.0) g/dL Hct 31.2 L (37-47) % MCV 83.0 (81-99) fL MCH 27.7 (27.0-32.0) pg MCHC 33.3 (32-36) g/dL RDW Std Deviation 41.8 (35.1-43.9) fl RDW Coeff of Emerson 13.8 (11.6-14.6) % Plt Count 310 (150-450) K/mm3 MPV 9.5 (6.2-12.0) fl Creatinine 0.51 L (0.70-1.20) mg/dL Estim Creat Clear Calc 207.16 (50-250) ml/min Est GFR (MDRD) Non-Af 132 (>60) Uric Acid 5.7 (2.6-6.0) mg/dL AST 25 (<=31) U/L ALT 22 (<=34) U/L U Random Total Protein 49.4 H (0.0-12.0) mg/dL Urine Creatinine 200.00 (28.00-217.00) mg/dL Protein/Creatinin Ratio 247 H (0-200) mg/g CRE Charges/Coding Procedures Urinary/Genital 52xxx-59xxx: 03760-52 non-stress test Interp
== END 2024-12-01 15:55 | disposition home or self-care (01) ==
LOC: WPOUT 13:43 → WP 13:44
PROVIDERS: PCP Family Medicine; Referring Provider Obstetrics & Gynecology; Visit Provider Obstetrics & Gynecology
DX: O99.891 Other specified diseases and conditions complicating pregnancy (principal); R51.9 Headache, unspecified; Z79.899 Other long term (current) drug therapy; Z3A.34 34 weeks gestation of pregnancy
CPT/HCPCS: 36415; 59025; 59050; 82565; 82570; 84156; 84450; 84460; 84550; 85027; 99221; G0378

== ENCOUNTER → 2024-12-03 | Outpatient (CLI) | payer MEDICAID, SELFPAY | END | disposition home or self-care (01) | LOC: LABSPEC 15:55 | PROVIDERS: PCP Family Medicine; Referring Provider Obstetrics & Gynecology; Visit Provider Obstetrics & Gynecology | DX: O09.92 Supervision of high risk pregnancy, unspecified, second trimester (principal); Z3A.00 Weeks of gestation of pregnancy not specified | CPT/HCPCS: 87081 ==

== ENCOUNTER 2024-12-06 19:10 | Outpatient (CLI) | payer MEDICAID, SELFPAY ==
[2024-12-06 19:46] VITALS: BP 122/74; PULSE 77; RESP 16; TEMP 36.7
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
== END 2024-12-06 20:55 | disposition home or self-care (01) ==
LOC: WPOUT 19:12 → WP 19:13
PROVIDERS: PCP Family Medicine; Referring Provider Registered Nurse; Visit Provider Registered Nurse
DX: O36.8330 Maternal care for abnormalities of the fetal heart rate or rhythm, third trimester, not applicable or unspecified (principal); O99.213 Obesity complicating pregnancy, third trimester; O99.333 Smoking (tobacco) complicating pregnancy, third trimester; F17.210 Nicotine dependence, cigarettes, uncomplicated; Z3A.36 36 weeks gestation of pregnancy
CPT/HCPCS: 59025; 59050; 76819; 99221; G0378

== ENCOUNTER → 2024-12-06 | Outpatient (CLI) | payer MEDICAID, SELFPAY ==
--- NOTE | 2024-12-06 18:09 | US_ITS ---
PROCEDURE: BIOPHYSICAL PROF W/O NON STRES 12/06/2024 REASON FOR EXAM: OBESITY DURING TECHNIQUE: Transabdominal ultrasound for biophysical profile FINDINGS Single live intrauterine heart rate 148 beats per minute. Presentation is cephalic. Amniotic fluid appears within limits. JOHN 14.5 cm, largest fluid pocket 6.2 cm age by LMP 36 weeks 2 days, WES 01/01/2025 The placenta is not well visualized due to patient body habitus. Posterior grade 2 without evidence of being low-lying Biophysical profile: Breathing movements 0/2 Gross body movements 2/2 tone 2/2 Amniotic fluid volume 2/2 US/Biophysical Prof W/O Non Stres IMPRESSION: BIOPHYSICAL PROFILE SCORE 6/8. Breathing movement 0/2 Note the patient sent for NST, confirmed with Marianna Mora Reading Location: [id number]
== END | disposition home or self-care (01) ==
LOC: US 18:08
PROVIDERS: PCP Family Medicine; Referring Provider Advanced Practice Midwife; Visit Provider Advanced Practice Midwife
DX: O99.212 Obesity complicating pregnancy, second trimester (principal); Z3A.00 Weeks of gestation of pregnancy not specified
CPT/HCPCS: 76819

== ENCOUNTER 2024-12-11 07:13 | Inpatient (IN) | payer MEDICAID, SELFPAY ==
[2024-12-11] VITALS (103 sets, daily range): BP systolic 85–146; BP diastolic 49–96; PULSE 63–171; RESP 16; TEMP 35.7–37.2; O2SAT 72–100; BMI 49.9
[2024-12-11] MEDS: Lactated Ringers 1,000 ML 50 ML IV (07:40)
[2024-12-11 07:58] LABS: Absolute Lymphocyte Count 4.45 X10^3/uL (0.83-4.51); Absolute Neutrophil Count 5.2 X10^3/uL (2.0-7.7); Basophil# 0.03 X10^3/uL; Basophil% 0.3 % (0-1); Eosinophil# 0.21 X10^3/uL; Eosinophils% 1.9 % (0-5); Hematocrit 31.4 % (37-47); Hemoglobin 10.3 g/dL (12.0-15.0); Lymphocyte # 4.45 X10^3/ul (0.83-4.51); Mean Corp Hgb Conc 32.8 g/dL (32-36); Mean Corpuscular Hgb 27.5 pg (27.0-32.0); Mean Platelet Vol. 10.6 fl (6.2-12.0); Monocyte# 0.95 X10^3/uL; Monocyte% 8.8 % (0-10); NRBC Flagged by Analyzer 0 % (0-5); Neutrophil # 5.15 X10^3/uL (2.7-7.7); Neutrophil % 47.4 % (47-70); Platelet Count 299 K/mm3 (150-450); RBC Distribution Width CV 13.7 % (11.6-14.6); RBC Distribution Width SD 41.5 fl (35.1-43.9); Red Blood Count 3.74 M/mm3 (4.2-5.4); White Blood Count 10.9 K/mm3 (4.4-11.0)
[2024-12-11] MEDS: Oxytocin 15 Units/NS 250ml 15 UNITS/250 ML IV.SOLN 2 UNITS IV (07:58)
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
[2024-12-11 08:39] LABS: Syphilis Antibodies Nonreactive (Nonreactive)
[2024-12-11] MEDS: Lactated Ringers 1,000 ML 999 ML IV (09:48)
[2024-12-11 09:52] LABS: Amphetamine Urine NEGATIVE (<1000 ng/mL); Barbiturate Urine NEGATIVE (< 200 ng/mL); Benzodiazepine Urine NEGATIVE (< 200 ng/mL); Buprenorphine Urine NEGATIVE (< 200 ng/mL); Cocaine Urine NEGATIVE (< 300 ng/mL); Fentanyl, Urine NEGATIVE; Methadone Urine NEGATIVE (< 300 ng/mL); Opiates Urine NEGATIVE (< 300 ng/mL); Oxycodone, Urine NEGATIVE (< 100 ng/mL); PCP Urine NEGATIVE (< 25 ng/mL); THC Urine NEGATIVE (< 50 ng/mL)
[2024-12-11] MEDS: fentaNYL-bupivacaine (epidural) 100 ML BAG EPIDURAL ×2 (10:14→14:49)
[2024-12-11] MEDS: Ondansetron 4 MG/2 ML Vial IV (10:23)
--- NOTE | 2024-12-11 10:30 | PCM.PN.BLA ---
Progress Note patient is a little nauseated with epidural. consents to arom and internals current tracing: FHT: when baby on monitor, Moderate variability reactive no decelerations category I tracing [place]: unable to pick Contractions cx 4/80/-2. membranes ruptured with clear fluid. iupc and FCE placed without difficulty reviewed tracing abnormalities since last note: no changes A/P: plan to inc pit
[2024-12-11] MEDS: Lactated Ringers 1,000 ML 200 ML IV ×2 (13:19→17:14)
[2024-12-11] MEDS: LACTATED RINGERS 500 ML 999 ML IV (14:50)
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
--- NOTE | 2024-12-11 21:04 | DCINST_ITS ---
Discharge Instructions Diet Discharge Diet: No restrictions DC O2, CPAP, BIPAP needs Home O2 Discharge instructions: No Dressing / Incision Discharge Activity: Return to Normal Activity, May Not Drive (while taking narcotic pain medications.) and May Shower May resume sexual activity in: 4-6 weeks Dressing / Incision Call your doctor if your incision/area has: Continuous Slow Oozing, Sudden Increased Bleeding, Increased Pain/ Swelling, Increased Redness and Foul Smelling Discharge Follow Up Care Please Follow Up With: Amalia Pierce DO When: Call [phone] to make an appointment with your doctor in 6 weeks. If you had elevated blood pressure or 4th degree laceration, you will need to be seen in 2 weeks. Test Results: Test results from this visit will be discussed in further detail at your follow- up appointment, if applicable. Discharge Plan Admission Admit Date/Time: 12/11/24 07:13 Attending Provider: Amalia Pierce Primary Care Provider: Ramone Joseph Discharge Orders/Prescriptions Prescriptions: No Action ferrous sulfate 325 mg (65 mg iron) tablet 325 mg PO QDAY Qty: 30 1RF omeprazole 40 mg capsule,delayed release(DR/EC) 40 mg PO DAILY PRN (Reason: indigestion) sertraline [Zoloft] 25 mg tablet 25 mg PO DAILY 30 Days Qty: 30 1RF Multi-DHA (algal oil) 27mg iron- 800 mcg-250 mg capsule 1 cap PO DAILY Referrals / Follow Up: Ramone Joseph MD [Primary Care Provider] -
[2024-12-11] MEDS: Oxytocin 15 Units/NS 250ml 15 UNITS/250 ML IV.SOLN 83 UNITS IV (21:20)
[2024-12-12] VITALS (8 sets, daily range): BP systolic 120–141; BP diastolic 57–78; PULSE 64–89; RESP 16; TEMP 36.5–36.7; O2SAT 97–100
[2024-12-12] MEDS: Ibuprofen 600 MG Tablet PO ×2 (02:58→21:49)
--- NOTE | 2024-12-12 07:11 | PN.OBGYN_ITS ---
Subjective Subjective Patient doing well without complaints. Tolerating PO. Ambulating and voiding without difficulty. feeding well. Denies chest pain, shortness of breath, calf pain/swelling, fevers, chills, lightheadedness. Objective Data Objective Data Vital Signs: Vital Signs Temp Pulse Resp BP Pulse Ox O2 Del Method 97.8 F 89 16 120/57 L 97 Room Air 12/12/24 03:00 12/12/24 03:00 12/12/24 03:00 12/12/24 03:00 12/12/24 03:00 12/12/24 03:00 Oxygen Delivery Method Room Air Weight: 273 lb Body Mass Index (BMI) 49.9 Intake & Output: Intake and Output for Last 24 Hours 12/10/24 12/11/24 12/12/24 23:59 23:59 23:59 Intake Total 3519.16 / 3519.16 250 / 250 Output Total 550 / 550 250 / 250 Balance 2969.16 / 2969.16 0 / 0 Lab / Micro Data 12/11/24 07:40 Labs: Laboratory Results - last 24 hr 12/11/24 07:40: WBC 10.9, RBC 3.74 L, Hgb 10.3 L, Hct 31.4 L, MCV 84.0, MCH 27.5, MCHC 32.8, RDW Std Deviation 41.5, RDW Coeff of [place] 13.7, Plt Count 299, MPV 10.6, Immature Gran % (Auto) 0.600, Neut % (Auto) 47.4, Lymph % (Auto) 41.0, [place] % (Auto) 8.8, Eos % (Auto) 1.9, Baso % (Auto) 0.3, Absolute Neuts (auto) 5.2, Absolute Lymphs (auto) 4.45, Nucleated RBC % 0, Syphilis Total Ab Nonreactive, Blood Type O POSITIVE, Antibody Screen NEGATIVE 12/11/24 08:45: Urine Opiates Screen NEGATIVE, U Buprenorphine Qual NEGATIVE, Ur Oxycodone Screen NEGATIVE, Urine Methadone Screen NEGATIVE, Urine Fentanyl Screen NEGATIVE, Ur Barbiturates Screen NEGATIVE, Ur Phencyclidine Scrn NEGATIVE, Ur Amphetamines Screen NEGATIVE, U Benzodiazepines Scrn NEGATIVE, Urine Cocaine Screen NEGATIVE, U Cannabinoids Screen NEGATIVE ROS Constitutional Constitutional: Reports systems reviewed and no addt'l complaints, except as documented Cardiovascular Cardiovascular: Reports systems reviewed and no addt'l complaints, except as documented Respiratory/Chest Respiratory/Chest: Reports systems reviewed and no addt'l complaints, except as documented Gastrointestinal Gastrointestinal: Reports systems reviewed and no addt'l complaints, except as documented Physical Exam Const alert, oriented x3 and no apparent distress HEENT Head and Scalp: atraumatic Resp normal respiratory effort GI soft to palpation and non-tender Bimanual Exam - Vag & Uterus: uterus non-tender Uterus Palpation: uterus fundus firm (below Umbilicus) Assessment & Plan (1) Vaginal delivery: COMMENT: JV PLAN: Plan s/p PPD # 1 1. routine post delivery care 2. breast feeding- support given 3. rh positive 4. rubella immune
[2024-12-12] MEDS: Acetaminophen 500 MG Tablet 1000 MG PO (07:22)
[2024-12-12] MEDS: Sertraline 50 MG Tablet PO (07:53)
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
[2024-12-13 03:45] VITALS: BP 122/78; PULSE 69; RESP 18; TEMP 36.4; O2SAT 100
[2024-12-13 08:09] VITALS: BP 116/71; PULSE 68; RESP 100; TEMP 36.3
--- NOTE | 2024-12-13 08:35 | PCM.PN.OB ---
Subjective Subjective Patient doing well without complaints. Tolerating PO. Ambulating and voiding without difficulty. feeding well. Denies chest pain, shortness of breath, calf pain/swelling, fevers, chills, lightheadedness. Objective Data Objective Data Vital Signs: Vital Signs Temp Pulse Resp BP Pulse Ox O2 Del Method 97.4 F L 68 100 H 116/71 100 Room Air 12/13/24 08:09 12/13/24 08:09 12/13/24 08:09 12/13/24 08:09 12/13/24 03:45 12/13/24 08:09 Oxygen Delivery Method Room Air Weight: 273 lb Body Mass Index (BMI) 49.9 Intake & Output: Intake and Output for Last 24 Hours 12/11/24 12/12/24 12/13/24 23:59 23:59 23:59 Intake Total 3519.16 / 3519.16 250 / 250 Output Total 550 / 550 250 / 250 Balance 2969.16 / 2969.16 0 / 0 Lab / Micro Data 12/11/24 07:40 Labs: Laboratory Results - last 24 hr 12/11/24 07:40: WBC 10.9, RBC 3.74 L, Hgb 10.3 L, Hct 31.4 L, MCV 84.0, MCH 27.5, MCHC 32.8, RDW Std Deviation 41.5, RDW Coeff of Emerson 13.7, Plt Count 299, MPV 10.6, Immature Gran % (Auto) 0.600, Neut % (Auto) 47.4, Lymph % (Auto) 41.0, [place] % (Auto) 8.8, Eos % (Auto) 1.9, Baso % (Auto) 0.3, Absolute Neuts (auto) 5.2, Absolute Lymphs (auto) 4.45, Nucleated RBC % 0, Syphilis Total Ab Nonreactive, Blood Type O POSITIVE, Antibody Screen NEGATIVE 12/11/24 08:45: Urine Opiates Screen NEGATIVE, U Buprenorphine Qual NEGATIVE, Ur Oxycodone Screen NEGATIVE, Urine Methadone Screen NEGATIVE, Urine Fentanyl Screen NEGATIVE, Ur Barbiturates Screen NEGATIVE, Ur Phencyclidine Scrn NEGATIVE, Ur Amphetamines Screen NEGATIVE, U Benzodiazepines Scrn NEGATIVE, Urine Cocaine Screen NEGATIVE, U Cannabinoids Screen NEGATIVE ROS Constitutional Constitutional: Reports systems reviewed and no addt'l complaints, except as documented Cardiovascular Cardiovascular: Reports systems reviewed and no addt'l complaints, except as documented Respiratory/Chest Respiratory/Chest: Reports systems reviewed and no addt'l complaints, except as documented Gastrointestinal Gastrointestinal: Reports systems reviewed and no addt'l complaints, except as documented Physical Exam Const alert, oriented x3 and no apparent distress HEENT Head and Scalp: atraumatic Resp normal respiratory effort GI soft to palpation and non-tender Bimanual Exam - Vag & Uterus: uterus non-tender Uterus Palpation: uterus fundus firm (below Umbilicus) Assessment & Plan (1) Vaginal delivery: COMMENT: JV PLAN: Plan s/p PPD # 2 1. routine post delivery care 2. breast feeding- support given 3. rh positive 4. rubella immune
[2024-12-13] MEDS: Sertraline 50 MG Tablet PO (10:33)
--- NOTE | 2024-12-16 10:59 | CASEMGMT ---
Brief Note Labor and Delivery Date of intervention: 12/13/24 Time of intervention: 1615 Cruz called [facility] and spoke to hotline screener, Marisa. Cruz informed Marisa of maternal THC use during . Marisa stated information would be provided to tabulating supervisor to be screened. No other needs at this time. Filemon Elaine, NAILHEAD PUNCHER, SUEDING AND BUFFING MACHINE OPERATOR
--- NOTE | 2024-12-18 17:34 | NURSING ---
Follow up phone call made, no answer, left voicemail
--- NOTE | 2025-01-02 15:32 | CASEMGMT ---
Labor and Delivery Brief Note 01/02/25 Sw [address] mandatory stenographic court reporter letter indicating that referral made by this social security assessor on 12/13/24 was screend in and assigned to transfer and line up worker, Ethel Polk . No other needs or concerns at this time. Filemon Elaine, WELDING MACHINE OPERATOR [employer], BUSINESS ANALYST INTERN
== END 2024-12-13 11:08 | disposition home or self-care (01) | DRG 560 ==
PROVIDERS: Admitting Provider Obstetrics & Gynecology; PCP Family Medicine; Referring Provider Obstetrics & Gynecology; Visit Provider Obstetrics & Gynecology
DX: O13.4 Gestational [pregnancy-induced] hypertension without significant proteinuria, complicating childbirth (principal); Z37.0 Single live birth; O99.344 Other mental disorders complicating childbirth; F12.10 Cannabis abuse, uncomplicated; F32.A Depression, unspecified; O99.214 Obesity complicating childbirth; K21.9 Gastro-esophageal reflux disease without esophagitis; F41.9 Anxiety disorder, unspecified; O99.324 Drug use complicating childbirth; Z3A.37 37 weeks gestation of pregnancy; O99.02 Anemia complicating childbirth; Z87.59 Personal history of other complications of pregnancy, childbirth and the puerperium; O99.62 Diseases of the digestive system complicating childbirth; N96 Recurrent pregnancy loss; O99.893 Other specified diseases and conditions complicating puerperium
CPT/HCPCS: 59025; 59050; 80307; 85025; 86780; 86850; 86900; 86901; 99221; G0378; J2405

== ENCOUNTER → 2025-01-23 | Outpatient (CLI) | payer MEDICAID, SELFPAY | END | disposition home or self-care (01) | LOC: LABSPEC 11:16 | PROVIDERS: PCP Family Medicine; Visit Provider Advanced Practice Midwife | DX: Z12.4 Encounter for screening for malignant neoplasm of cervix (principal); N89.8 Other specified noninflammatory disorders of vagina | CPT/HCPCS: 87070; 87205; 88175; G0145 ==

== ENCOUNTER 2025-02-28 12:28 | Emergency (ER) | payer MEDICAID, SELFPAY ==
[2025-02-28 12:29] VITALS: BP 152/88; PULSE 76; RESP 16; TEMP 36.9; O2SAT 100; BMI 47.9
[2025-02-28 12:48] LABS: Mucous, Urine 0 SEEN /hpf (<or=2+); Red Blood Cells-Urine 0 SEEN /hpf (0-5)
[2025-02-28 12:57] LABS: Color, Urine Yellow (Yellow); Glucose, Dipstick Normal (Normal); Ketone-Dipstick Negative (Negative); Leukocyte Esterase-Dipstick 100 /ul (Negative); Nitrite-Dipstick Negative (Negative); Occult Blood-Urine Negative /ul (Negative); Protein-Dipstick 30 mg/dl (Negative); Specific Gravity, Urine 1.015 (1.002-1.030); Urine Bilirubin Dipstick Negative (Negative)
[2025-02-28 13:03] LABS: Hematocrit 38.0 % (37-47); Hemoglobin 12.0 g/dL (12.0-15.0); Immature Granulocytes Count 0.030 X10^3/uL (0.0-0.0); Mean Corp Hgb Conc 31.6 g/dL (32-36); Mean Corpuscular Volume 85.2 fL (81-99); Mean Platelet Vol. 9.7 fl (6.2-12.0); NRBC Flagged by Analyzer 0 % (0-5); Platelet Count 320 K/mm3 (150-450); RBC Distribution Width CV 15.5 % (11.6-14.6); RBC Distribution Width SD 48.3 fl (35.1-43.9); Red Blood Count 4.46 M/mm3 (4.2-5.4); White Blood Count 10.7 K/mm3 (4.4-11.0)
[2025-02-28 13:13] LABS: Internal QC Validated? YES +Cl - CLEAR BKGD; Pregnancy, Serum, hCG Quali. NEGATIVE Negative; Record Kit Lot#, Serum Preg. 0000962302
[2025-02-28 13:16] LABS: Squamous Epithelial Cells - UA 0-5 SEEN /hpf (5-10)
[2025-02-28] MEDS: Ketorolac 30 MG/ML Syringe IV (13:20)
--- NOTE | 2025-02-28 13:29 | EX.ED.DYSGE1 ---
HPI History of Present Illness Chief Complaint: Complaint Narrative Narrative: 24-year-old female presenting to emergency department for complaint of lower back pain. Patient states that she has been having pain on the lower side of her back and recently finished a course of Macrobid for treatment of UTI. Patient states that she is not having any abdominal pain no nausea, vomiting, vaginal discharge or dysuria. Patient denying any fevers since being on the UTI. Patient did have a urine culture performed at her previous visit showing contamination with no growth of bacteria. Denying any weakness, sensory deficits, urinary retention or incontinence. Denies any history of kidney stones. [facility] Medical History PTSD (post-traumatic stress disorder) Generalized anxiety disorder Major depressive disorder, recurrent severe without psychotic features Marijuana use Former smoker Spontaneous vaginal delivery Anxiety Depression Headache Gestational HTN Chronic GERD Anemia Chronic eczema Home Medications ?Medication ?Instructions ?Recorded ?Last Taken ?Type omeprazole 40 mg capsule,delayed 40 mg PO DAILY PRN indigestion 10/09/24 12/10/24 History release sertraline 25 mg tablet (Zoloft) 25 mg PO DAILY anxiety 30 days #30 11/27/24 12/10/24 Rx tabs 40-iron fum 27 mg 1 cap PO DAILY 12/01/24 12/10/24 History iron-folic acid 800 mcg-dha 250 mg capsule ( Multi-DHA (algal oil)) cyclobenzaprine 10 mg tablet 10 mg PO TID PRN Muscle Spasm #20 02/28/25 Unknown Rx TABLETS lidocaine 5 % topical patch 1 patch topical DAILY PRN pain, 02/28/25 Unknown Rx moderate #15 ea Allergy/AdvReac Type Severity Reaction Status Date / Time clavulanic acid (From AdvReac Swelling Verified 02/28/25 12:32 Augmentin) Family History Mother PCOS (polycystic ovarian syndrome) Grandfather Bone cancer Surgical History History of cholecystectomy History of tonsillectomy and adenoidectomy Pilonidal cyst Social History adopted: No household members: children housing: house number of children: 1 current occupational status: employed current occupation: [employer] current occupational exposures/hazards: No pets and animals: Yes (Not taking care of litterbox) pets and animals: cat(s) history of recent travel: No sexually active: Yes Smoking Status: Current every day smoker tobacco type: cigarettes second hand exposure: Yes alcohol intake: current alcohol intake frequency: holidays/special occasions only details: Not while substance use type: marijuana well-balanced diet: daily or most days caffeine: No eating out: rarely or never during the past year weight has: remained stable what type of physical activity do you participate in: walking frequency: 3-4 times per week duration: 15-30 minutes/day alfreda/religious: None seatbelt use: sometimes do you feel safe at home: Yes additional social history: FOB not involved EXAM Physical Exam Const Vital Signs: 02/28/25 12:29 Temperature 98.5 F Temperature Source Oral Pulse Rate 76 Respiratory Rate 16 Blood Pressure 152/88 H Blood Pressure Mean 109 Pulse Ox 100 Oxygen Delivery Method Room Air Positive well nourished and obese Constitutional Narrative: no acute distress Nutritional Appearance: obese HEENT Reports moist mucous membranes Resp normal respiratory effort and clear to auscultation bilaterally Cardio regular rate and no murmurs GI normal to inspection, nondistended, normoactive bowel sounds, non-tender and non-distended Palpation: soft Back/Spine no CVA tenderness Back/Spine Narrative: no midline bony tenderness. Pain with palpation over right-sided quadratus lumborum and piriformis muscles. Neuro oriented x3 Sensorium / Orientation: alert Sensory Exam: No sensory level loss detected Motor Exam: strength 5/5 throughout MDM MDM MDM Narrative Medical decision making narrative: 24-year-old female presenting to emergency department for complaint of lower back pain. Patient states that she has been having pain on the lower side of her back and recently finished a course of Macrobid for treatment of UTI. Patient states that she is not having any abdominal pain no nausea, vomiting, vaginal discharge or dysuria. Patient denying any fevers since being on the UTI. Patient did have a urine culture performed at her previous visit showing contamination with no growth of bacteria. Denying any weakness, sensory deficits, urinary retention or incontinence. Denies any history of kidney stones. On physical exam patient has no CVA tenderness or abdominal pain. No sensory or motor deficits. Denies any history of trauma but pain is more palpable and tender over the right piriformis and quadratus lumborum. Suspect this may be more muscle spasm versus strain. Patient has full range of motion of bilateral lower extremities. After reviewing labs showing no evidence of hematuria or infection with patient having no urinary symptoms I do not feel that any new antibiotic needs to be started or further imaging needed at this time as she is finished with previous full course of antibiotics and no signs of treatment failure. Creatinine stable. Low suspicion for nephrolithiasis at this time. Vital stable and agreeable for discharge with return precautions given and follow-up to PCP. Lab Data Attestation: I reviewed the patient's lab results. Lab results narrative: Labs showing no evidence of leukocytosis. Normal creatinine at 0.68. No hematuria or nitrites on UA. Negative . Labs: Laboratory Results - last 24 hr 02/28/25 02/28/25 12:43 12:52 WBC 10.7 RBC 4.46 Hgb 12.0 Hct 38.0 MCV 85.2 MCH 26.9 L MCHC 31.6 L RDW Std Deviation 48.3 H RDW Coeff of Emerson 15.5 H Plt Count 320 MPV 9.7 Immature Gran % (Auto) 0.300 Neut % (Auto) 47.8 Lymph % (Auto) 44.1 H [place] % (Auto) 3.9 Eos % (Auto) 3.5 Baso % (Auto) 0.4 Absolute Neuts (auto) 5.1 Absolute Lymphs (auto) 4.74 H Nucleated RBC % 0 Sodium 139 Potassium 3.9 Chloride 106 Carbon Dioxide 23.2 Anion Gap 10 BUN 15 Creatinine 0.68 L Estim Creat Clear Calc 153.58 Est GFR (MDRD) Non-Af 123 BUN/Creatinine Ratio 21.4 H Glucose 98 Calcium 9.3 Total Bilirubin 0.33 AST 20 ALT 22 Alkaline Phosphatase 78 Total Protein 8.3 Albumin 4.3 Globulin 3.9 Albumin/Globulin Ratio 1.1 Serum , Qual NEGATIVE Urine Color Yellow Urine Clarity Clear Urine pH 6.0 Ur Specific [place] 1.015 Urine Protein 30 H Urine Glucose (UA) Normal Urine Ketones Negative Urine Occult Blood Negative Urine Nitrite Negative Urine Bilirubin Negative Urine Urobilinogen Normal Ur Leukocyte Esterase 100 H Urine RBC 0 SEEN Urine WBC 0-5 SEEN Ur Squamous Epith Cells 0-5 SEEN Urine Bacteria 1+ Urine Mucus 0 SEEN Discharge Plan Triage Chief Complaint: Complaint ED Provider: Chloé Monroy Dx/Rx/DC Orders Prescriptions: New cyclobenzaprine 10 mg tablet 10 mg PO TID PRN (Reason: Muscle Spasm) Qty: 20 0RF lidocaine 5 % adhesive patch,medicated 1 patch topical DAILY PRN (Reason: pain, moderate) Qty: 15 0RF Rx Instructions: leave on most painful area for up to 12 hrs No Action omeprazole 40 mg capsule,delayed release(DR/EC) 40 mg PO DAILY PRN (Reason: indigestion) sertraline [Zoloft] 25 mg tablet 25 mg PO DAILY 30 Days Qty: 30 1RF Multi-DHA (algal oil) 27mg iron- 800 mcg-250 mg capsule 1 cap PO DAILY Primary Care Provider: Ramone Joseph Referrals: Ramone Joseph MD [Primary Care Provider] - Activity Restrictions/Additional Instructions: You may take up to 1000 mg Tylenol and 800 mg ibuprofen alternating every 6 hours as needed for pain. Do not drive or operate heavy machinery under the influence of muscle relaxers as they are sedating. Return if you develop any worsening symptoms, inability to pee, fevers. Print Language: Irish Disposition Disposition: Home, Self Care
[2025-02-28 13:38] LABS: AST(SGOT) 20 U/L (<=31); Alanine Aminotransfer ALT/SGPT 22 U/L (<=34); Albumin, Serum 4.3 g/dL (3.5-5.0); Alkaline Phosphatase 78 U/L (35-104); Anion Gap 10 (5-15); BUN 15 mg/dL (4-19); BUN/Creat Ratio 21.4 RATIO (10-20); Calcium,Total 9.3 mg/dL (7.6-11.0); Carbon Dioxide 23.2 mmol/L (21.0-32.0); Chloride 106 mmol/L (98-108); Estimated Creatinine Clearance 153.58 ml/min (50-250); Globulin 3.9 g/dL (2.2-4.2); Glucose 98 mg/dL (70-99); Potassium 3.9 mmol/L (3.3-5.1)
[2025-02-28 14:02] VITALS: BP 152/88; PULSE 76; RESP 16; TEMP 36.9; O2SAT 100
== END 2025-02-28 14:06 | disposition home or self-care (01) ==
PROVIDERS: Emergency Provider Student in an Organized Health Care Education/Training Program; PCP Family Medicine; Visit Provider Student in an Organized Health Care Education/Training Program
DX: M54.50 Low back pain, unspecified (principal); F17.210 Nicotine dependence, cigarettes, uncomplicated; K21.9 Gastro-esophageal reflux disease without esophagitis; Z79.899 Other long term (current) drug therapy; F41.9 Anxiety disorder, unspecified; F32.A Depression, unspecified; Z90.49 Acquired absence of other specified parts of digestive tract
CPT/HCPCS: 80053; 81001; 84703; 85025; 96374; 99283; A4216